=== PATIENT | female | born 1990 | race Caucasian/White ===

== ENCOUNTER 2016-05-04 13:32 | Emergency (ER) | payer BC ==
[2016-05-04] MEDS ORDERED: NORMAL SALINE 1000 ML 1,000 ML IV ONE (14:01)
[2016-05-04 14:04] LABS: ABSOLUTE EOSINOPHILS # (AUTO) 0.5 10^3/uL (0.0-0.6); ABSOLUTE LYMPHOCYTES (AUTO) 2.4 10^3/uL (0.5-4.7); ABSOLUTE MONOCYTES (AUTO) 0.8 10^3/uL (0.1-1.4); BASOPHILS % (AUTO) 0.2 % (0-2); EOSINOPHILS % (AUTO) 5.3 % (0-6); LYMPHOCYTES % (AUTO) 27.7 % (13-45); MEAN CORPUSCULAR HEMOGLOBIN 26.2 pg (27.0-33.4); MEAN CORPUSCULAR HGB CONC 32.3 g/dL (32.0-36.0); MEAN CORPUSCULAR VOLUME 81 fl (80-97); MONOCYTES % (AUTO) 9.2 % (3-13); RED BLOOD COUNT 4.19 10^6/uL (3.72-5.28); RED CELL DISTRIBUTION WIDTH 16.6 % (11.5-14.0); SEGMENTED NEUTROPHILS % (AUTO) 57.6 % (42-78); WHITE BLOOD COUNT 8.7 10^3/uL (4.0-10.5)
[2016-05-04 14:25] LABS: ALANINE AMINOTRANSFERASE 22 U/L (9-52); ALBUMIN 4.2 g/dL (3.5-5.0); ALCOHOL < 10 mg/dL (NONE DETECTED); ALKALINE PHOSPHATASE 88 U/L (38-126); ANION GAP 16 (5-19); ASPARTATE AMINO TRANSFERASE 17 U/L (14-36); BILIRUBIN,TOTAL 0.4 mg/dL (0.2-1.3); BLOOD UREA NITROGEN 11 mg/dL (7-20); CALCIUM 9.8 mg/dL (8.4-10.2); CARBON DIOXIDE 21 mmol/L (22-30); CHLORIDE 106 mmol/L (98-107); CREATININE RESULT 0.75 mg/dL (0.52-1.25); GLUCOSE 88 mg/dL (75-110); MAGNESIUM 1.8 mg/dL (1.6-2.3); POTASSIUM 3.8 mmol/L (3.6-5.0); SODIUM 142.9 mmol/L (137-145); TOTAL PROTEIN 6.6 g/dL (6.3-8.2)
[2016-05-04] MEDS ORDERED: ONDANSETRON HCL INJ/PF 4 MG/2 ML SDV IV ONE (14:29)
--- NOTE | 2016-05-04 15:26 | ER Document Report ---
ED General - General Chief Complaint: Seizure Stated Complaint: SEIZURE - HPI Patient complains to provider of: seizure Notes: Patient coming in today after parents seizure. Patient states last seizure was in March. Patient states she has been compliant with her medications. Patient denies any changes in the last 2 days denies fevers chills nausea vomiting patient states now that she is having head pain and neck pain. Patient was transported by EMS in a c-collar due to the neck pain. Patient states currently she is nauseous which is normal after she has a seizure. Patient is alert oriented. Actual events of seizure not known no witnesses at bedside - Related Data Allergies/Adverse Reactions: ciprofloxacin [From Cipro] Allergy (Verified 09/06/13 22:52) ciprofloxacin HCl [From Cipro] Allergy (Verified 09/06/13 22:52) morphine [Morphine] Allergy (Verified 09/06/13 22:52) Sulfa (Sulfonamide Antibiotics) Allergy (Verified 09/06/13 22:52) vancomycin [Vancomycin] Allergy (Verified 09/06/13 22:52) Past Medical History - Social History Smoking Status: Unknown if Ever Smoked Family History: Other Pulmonary Medical History: Reports: Hx Asthma, Hx Pneumonia Neurological Medical History: Reports: Hx Migraine, Hx Seizures Past Surgical History: Reports: Hx Orthopedic Surgery - bilaeral feet/knees, Hx Thyroid Surgery - Immunizations Hx Diphtheria, Pertussis, Tetanus Vaccination: Yes Review of Systems - Review of Systems Constitutional: No symptoms reported EENT: No symptoms reported Cardiovascular: No symptoms reported Respiratory: No symptoms reported Gastrointestinal: No symptoms reported Genitourinary: No symptoms reported Female Genitourinary: No symptoms reported Musculoskeletal: No symptoms reported Skin: No symptoms reported Hematologic/Lymphatic: No symptoms reported Neurological/Psychological: Seizure -: Yes All other systems reviewed and negative Physical Exam - Vital signs Vitals: Temp Pulse Resp BP Pulse Ox 98.3 F 95 18 124/72 99 05/04/16 13:37 05/04/16 13:37 05/04/16 13:37 05/04/16 13:37 05/04/16 13:37 Interpretation: Normal - General General appearance: Appears well, Alert - HEENT Head: Normocephalic, Atraumatic Eyes: Normal Pupils: PERRL Notes: Upon palpation the midline of the neck patient continues to have pain c-collar was reestablished and CT scan ordered - Respiratory Respiratory status: No respiratory distress Chest status: Nontender Breath sounds: Normal Chest palpation: Normal - Cardiovascular Rhythm: Regular Heart sounds: Normal auscultation Murmur: No - Abdominal Inspection: Normal Distension: No distension Bowel sounds: Normal Tenderness: Nontender Organomegaly: No organomegaly - Back Back: Normal, Nontender - Extremities General upper extremity: Normal inspection, Nontender, Normal color, Normal ROM , Normal temperature General lower extremity: Normal inspection, Nontender, Normal color, Normal ROM , Normal temperature, Normal weight bearing. No: Altagracia's sign - Neurological Neuro grossly intact: Yes Cognition: Normal Orientation: AAOx4 Mulino Coma Scale Eye Opening: Spontaneous Lyndon Coma Scale Verbal: Oriented Mul[place] Coma Scale Motor: Obeys Commands Mul[place] Coma Scale Total: 15 Speech: Normal Motor strength normal: LUE, RUE, LLE, RLE Sensory: Normal - Psychological Associated symptoms: Normal affect, Normal mood - Skin Skin Temperature: Warm Skin Moisture: Dry Skin Color: Normal Course - Re-evaluation Re-evalutation: 05/04/16 19:42 Breakthough seizure with known seizure disorder and previous neurology evaluation. Now returned to neuro baseline. Labs reviewed. No indication of new or acute process. Patient appears safe for discharge with observation and close outpatient F/U with PCP or neurology. Seizure warnings discussed with patient / family. - Vital Signs Vital signs: Temp Pulse Resp BP Pulse Ox 98.3 F 83 18 105/63 100 05/04/16 13:37 05/04/16 15:29 05/04/16 13:37 05/04/16 15:29 05/04/16 15:29 - Laboratory Result Diagrams: 05/04/16 13:50 05/04/16 13:50 Laboratory results interpreted by me: 05/04/16 05/04/16 05/04/16 13:50 13:50 15:05 Hgb 11.0 L Hct 34.0 L MCH 26.2 L RDW 16.6 H Carbon Dioxide 21 L Urine Protein 30 H Ur Leukocyte Esterase SMALL H Discharge - Discharge Clinical Impression: Seizure, Nausea, Myalgia Condition: Good Disposition: HOME, SELF-CARE Instructions: Seizure, Known Epileptic ([facility]), Myalagia (Muscle Pain) ([facility]) Additional Instructions: Your seen and evaluated today for seizure. Her CAT scan of your head and your neck showed no critical pathology. You may still experience some neck pain head pain and muscle aches as that you did have a seizure today I would recommend taking Tylenol Motrin for pain control you may place ice packs or warm packs only areas that hurt. Please follow-up with your neurologist Please follow-up with your primary care physician Prescriptions: Ondansetron [Zofran Odt 4 mg Tablet] 4 mg PO Q4HP PRN #30 tab.rapdis PRN Reason: Referrals: LEXIS ANTUNEZ [Primary Care Provider] - Follow up as needed ABBY HORTA MD [ACTIVE STAFF] - Follow up as needed
[2016-05-04 16:54] LABS: AMORPHOUS SEDIMENT,URINE TRACE /HPF; APPEARANCE,URINE TURBID; BILIRUBIN,URINE NEGATIVE (NEGATIVE); GLUCOSE, URINE NEGATIVE (NEGATIVE); KETONES,URINE NEGATIVE (NEGATIVE); LEUKOCYTE ESTERASE,URINE SMALL (NEGATIVE); NITRITE,URINE NEGATIVE (NEGATIVE); PROTEIN,URINE 30 mg/dL (NEGATIVE); URINE SPECIFIC GRAVITY 1.024; UROBILINOGEN,URINE NEGATIVE mg/dL (<2.0)
[2016-05-04 17:09] LABS: URINE BARBITURATES SCREEN NEGATIVE; URINE METHADONE SCREEN NEGATIVE; URINE OPIATES LOW NEGATIVE; URINE PHENCYCLIDINE SCREEN NEGATIVE
[2016-05-04 19:30] VITALS: BP 105/63
== END 2016-05-04 15:29 | disposition home or self-care (01) ==
LOC: ER 13:32
DX: G40.909 Epilepsy, unspecified, not intractable, without status epilepticus (principal); M79.1 Myalgia; M54.2 Cervicalgia; R51 Headache; R11.0 Nausea; J45.909 Unspecified asthma, uncomplicated; Z79.899 Other long term (current) drug therapy; Z88.1 Allergy status to other antibiotic agents; Z88.5 Allergy status to narcotic agent; Z88.2 Allergy status to sulfonamides
CPT/HCPCS: 99284; 96374; 36415; 80307 ×2; 83735; 84703; 85025; 80053; 81001; 70450; 72125; J2405; J7030

== ENCOUNTER 2016-08-19 15:07 | Emergency (ER) | payer BC ==
--- NOTE | 2016-08-19 15:51 | ER Document Report ---
HPI - HPI Patient complains to provider of: right foot pain Onset: This morning Onset/Duration: Sudden Quality of pain: Achy Pain Level: 2 Context: Presents to the emergency department with complaints of right foot pain and burning. Patient reports symptoms started at 02 100 this morning. She reports increasing pain all day long. She took 3 Vicodin without relief of pain. She reports surgery on July 21. 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 Foot is in a cast. Denies trauma or recent injury. She contacted her foot surgeon several times. First he called in a prescription for Doxy but she was unable to pick pulling machine operator the doctor because her mother would not take her. Next he instructed her to come to the emergency department since she couldn't pick pulling machine operator the prescription. Associated Symptoms: None Exacerbated by: Denies Relieved by: Denies Similar symptoms previously: No Recently seen / treated by doctor: No - REPRODUCTIVE Reproductive: DENIES: : - DERM Skin Color: Normal Past Medical History - General Information source: Patient Last Menstrual Period: 08/19/16 - Social History Smoking Status: Unknown if Ever Smoked Cigarette use (# per day): No Frequency of alcohol use: Rare Drug Abuse: None Lives with: Family Family History: Other Patient has suicidal ideation: No Patient has homicidal ideation: No Pulmonary Medical History: Reports: Hx Asthma, Hx Pneumonia Neurological Medical History: Reports: Hx Migraine, Hx Seizures Renal/ Medical History: Denies: Hx Peritoneal Dialysis Past Surgical History: Reports: Hx Orthopedic Surgery - bilaeral feet/knees x5, spine surgery, Hx Thyroid Surgery, Other - brain surgery- shunt, sinus, eye, ear surgery - Immunizations Hx Diphtheria, Pertussis, Tetanus Vaccination: Yes Vertical Provider Document - CONSTITUTIONAL Agree With Documented VS: Yes Exam Limitations: No Limitations General Appearance: WD/WN, No Apparent Distress - nontoxic looking - INFECTION CONTROL TRAVEL OUTSIDE OF THE [place] IN LAST 30 DAYS: No - HEENT HEENT: Atraumatic, Normocephalic - NECK Neck: Supple - RESPIRATORY Respiratory: No Respiratory Distress O2 Sat by Pulse Oximetry: 97 - CARDIOVASCULAR Cardiovascular: Tachycardia - MUSCULOSKELETAL/EXTREMETIES Musculoskeletal/Extremeties: Tender - right foot in cast, wiggles toes post cast removal, no s/s infection, no swelling/warmth/discharge, brisk cap refill, wiggles toes without problems. - NEURO Level of Consciousness: Awake, Alert, Appropriate Motor/Sensory: No Motor Deficit - DERM Integumentary: Warm, Dry Course - Re-evaluation Re-evalutation: 08/19/16 15:[address] Camilo at [facility]. He agrees with plan to remove the cast prescribe doxycycline and pain medication and follow-up with Dr Jenkins on Sunday. 08/19/[address] Jenkins. I talked to him after her cast was removed. No signs of infection no erythema swelling warmth or discharge. Brisk cap refill. He was instructed of my findings. He agrees with my plan of care for patient to take the doxy that has already been called in for her plus add pain medication and antinausea. Patient is instructed to follow-up with him on Sunday. She verbalized understanding to all instructions. - Vital Signs Vital signs: Temp Pulse Resp BP Pulse Ox 98.0 F 122 H 22 H 111/65 97 08/19/16 15:14 08/19/16 15:14 08/19/16 15:14 08/19/16 15:14 08/19/16 15:14 Procedures - Immobilization Right Foot Immobilizer type: Posterior ankle Performed by: Michael - vanesa HOOVER Post-Proc Neuro Vasc Exam: Unchanged from pre-exam Alignment checked and good: Yes Discharge - Discharge Clinical Impression: Right foot pain Condition: Stable Disposition: HOME, SELF-CARE Instructions: Doxycycline ([facility]), Oral Narcotic Medication ([facility]), Splint Pending Casting ([facility]), Antinausea Medication ([facility]) Additional Instructions: *You have been evaluated for right foot pain *Maintain the splint *Rest/ elevate your foot *Follow up with Dr Jenkins Sunday *Take medication as prescribed *Return to ED for worsening condition, changes, needs Prescriptions: Hydrocodone/Acetaminophen [[place] 5-325 Tablet] 1 each PO QID #15 tablet Ondansetron [Zofran Odt 4 mg Tablet] 1 - 2 tab PO Q4H #10 tab.tamikadis
[2016-08-19] MEDS ORDERED: OXYCODONE-ACETAMINOPHEN 5-325 MG TABLET PO ONE (15:53)
[2016-08-19] MEDS ORDERED: ONDANSETRON 4 MG TAB.RAPDIS PO ONE (16:00)
[2016-08-19] MEDS ORDERED: DOXYCYCLINE HYCLATE 100 MG TABLET PO ONE (16:15)
[2016-08-19 16:58] VITALS: BP 108/65
== END 2016-08-19 16:54 | disposition home or self-care (01) ==
LOC: ER 15:07
PROC: 2W3QX1Z Immobilization of Right Lower Leg using Splint (ICD-10-PCS; principal; 2016-08-19)
DX: M79.671 Pain in right foot (principal); J45.909 Unspecified asthma, uncomplicated; Z98.890 Other specified postprocedural states; Z86.14 Personal history of Methicillin resistant Staphylococcus aureus infection
CPT/HCPCS: 99283; 29515; S0119

== ENCOUNTER 2017-06-28 01:36 | Emergency (ER) | payer BC ==
--- NOTE | 2017-06-28 02:40 | ER Document Report ---
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 She states she slipped on the bathroom mat, fell forward, hit her head on the door in the bathroom. She states that she was not knocked out but she felt nauseated and vomited. She states that she took 4 mg of Zofran, 10 minutes later she vomited again. After that she came to emergency department by EMS to be evaluated. She is not on any blood thinners. She denies any focal numbness or weakness, she does report a headache, she denies neck pain, she denies any other injuries. TRAVEL OUTSIDE OF THE [place] IN LAST 30 DAYS: No - Related data Allergies/Adverse Reactions: ciprofloxacin [From Cipro] Allergy (Verified 08/19/16 15:15) ciprofloxacin HCl [From Cipro] Allergy (Verified 08/19/16 15:15) morphine [Morphine] Allergy (Verified 08/19/16 15:15) Sulfa (Sulfonamide Antibiotics) Allergy (Verified 08/19/16 15:15) vancomycin [Vancomycin] Allergy (Verified 08/19/16 15:15) Past Medical History - General Information source: Patient - Social History Smoking Status: Never Smoker Frequency of alcohol use: None Drug Abuse: None Lives with: Family Family History: Other Pulmonary Medical History: Reports: Hx Asthma, Hx Pneumonia Neurological Medical History: Reports: Hx Migraine, Hx Seizures Renal/ Medical History: Denies: Hx Peritoneal Dialysis Past Surgical History: Reports: Hx Neurologic Surgery - Brain surgery with ROOFING CONTRACTOR shunt, Hx Orthopedic Surgery - bilaeral feet/knees x5, spine surgery, Hx Thyroid Surgery, Hx Tonsillectomy, Other - brain surgery- shunt, sinus, eye, ear surgery - Immunizations Hx Diphtheria, Pertussis, Tetanus Vaccination: Yes Review of Systems - Review of Systems Constitutional: No symptoms reported EENT: No symptoms reported Cardiovascular: No symptoms reported Respiratory: No symptoms reported Gastrointestinal: See HPI Genitourinary: No symptoms reported Female Genitourinary: No symptoms reported Musculoskeletal: No symptoms reported Skin: No symptoms reported Hematologic/Lymphatic: No symptoms reported Neurological/Psychological: See HPI Physical Exam - Vital signs Vitals: Temp Pulse Resp BP Pulse Ox 98.5 F 96 16 129/73 H 100 06/28/17 01:41 06/28/17 01:41 06/28/17 01:41 06/28/17 01:41 06/28/17 01:41 Interpretation: Normal - General General appearance: Appears well In distress: None - HEENT Head: Normocephalic. No: Atraumatic - Questionable tiny contusion over the mid forehead Eyes: Normal Conjunctiva: Normal Extraocular movements intact: Yes Eyelashes: Normal Pupils: PERRL Ears: Normal Sinus: Normal Nasal: Normal Mouth/Lips: Normal Mucous membranes: Normal Pharynx: Normal Neck: Normal - Respiratory Respiratory status: No respiratory distress Chest status: Nontender Breath sounds: Normal Chest palpation: Normal - Cardiovascular Rhythm: Regular Heart sounds: Normal auscultation Murmur: No - Abdominal Inspection: Normal Distension: No distension Bowel sounds: Normal Tenderness: Nontender Organomegaly: No organomegaly - Back Back: Normal, Nontender - Extremities General upper extremity: Normal inspection, Nontender, Normal color, Normal ROM , Normal temperature General lower extremity: Normal inspection, Nontender, Normal color, Normal ROM , Normal temperature, Normal weight bearing. No: Altagracia's sign - Neurological Neuro grossly intact: Yes Cognition: Normal Orientation: AAOx4 Lyndon Coma Scale Eye Opening: Spontaneous [place] Coma Scale Verbal: Oriented Lyndon Coma Scale Motor: Obeys Commands Lyndon Coma Scale Total: 15 Speech: Normal Cranial nerves: Normal Cerebellar coordination: Normal Motor strength normal: LUE, RUE, LLE, RLE Additional motor exam normals: Equal brancher. No: Pronator drift Sensory: Normal - Psychological Associated symptoms: Normal affect, Normal mood - Skin Skin Temperature: Warm Skin Moisture: Dry Skin Color: Normal Course - Re-evaluation Re-evalutation: I do not see any signs of trauma over patient's head other than possibly a tiny area of contusion in the mid forehead. She has a normal neurological exam, she is alert, smiling, talkative, well-appearing. No neurological deficits. CT of the head was performed because of her reported injury and vomiting along with her shunt history, shows no hemorrhage or concerning findings. On repeat examination neurological exam remains normal, patient happily playing on her phone. Patient is asking for something for headache, I did agree to give her this. On reevaluation patient with no headache. Discussed head injury precautions, postconcussive symptoms, return precautions. Patient states she will be with her mother later today. Patient states understanding and agreement with plan. - Vital Signs Vital signs: Temp Pulse Resp BP Pulse Ox 98.9 F 93 16 110/63 100 06/28/17 04:32 06/28/17 04:32 06/28/17 04:32 06/28/17 04:32 06/28/17 04:32 Discharge - Discharge Clinical Impression: Head injury Qualifiers: Encounter type: initial encounter Qualified Code(s): S09.90XA - Unspecified injury of head, initial encounter Vomiting Qualifiers: Vomiting type: unspecified Vomiting Intractability: non-intractable Nausea presence: with nausea Qualified Code(s): R11.2 - Nausea with vomiting, unspecified Condition: Stable Disposition: HOME, SELF-CARE Additional Instructions: Your neurological examination and the CAT scan do not indicate any concerning abnormalities. This is most likely a concussion, you will likely have postconcussive headaches. Please follow head injury precautions. See additional details below. Follow-up with primary care. Return for any concerning symptoms Head Injury Precautions At this point, there is no evidence that your head injury is serious. Observation is necessary, however. Limit activity for the first 24 hours. Bed rest is best. During the first 24 hours, check to see approximately every two to three hours that the patient is easily arousable, responds normally, and can perform common tasks such as walking without difficulty. Contact your doctor or go to the hospital if any of the following things occur: Persistent vomiting, difficulty in arousing the patient, worsening or continued headache, or failure to improve as expected. Head injuries can cause symptoms that persist for a few days or even a few weeks. Post-Concussion Syndrome Post-concussion syndrome often follows a mild head injury. Dizziness, mild nausea, mild headache, trouble concentrating, and a general sense of "not being right" may persist for a week or two. This is a frequent complication of concussion. However, if the symptoms worsen, or new symptoms develop, you should be re-examined by the physician. There is no specific cure for post-concussion syndrome. You can take mild pain medication such as ibuprofen or acetaminophen. While you should not drive if you are dizzy, you can get back to your regular activities as quickly as the symptoms will allow. And while vigorous exercise may worsen the headache, mild physical activity often is helpful. Sitting and thinking about your symptoms will worsen them. If difficulties continue, you may need referral for special therapy to help you regain full mental function. Call the physician if you are worsening, or if symptoms are still present in one week. Report any new symptoms immediately. Referrals: JOAN PRITCHARD PA [Primary Care Provider] - Follow up as needed
--- NOTE | 2017-06-28 03:17 | RADIOLOGY REPORT (SQ) ---
EXAM DESCRIPTION: CT HEAD WITHOUT CLINICAL HISTORY: 26 years Female, head injury, vomiting, has shunt COMPARISON: None. TECHNIQUE: No contrast. Coronal and sagittal reformat. This exam was performed according to our departmental dose-optimization program, which includes automated exposure control, adjustment of the mA and/or kV according to patient size and/or use of iterative reconstruction technique. FINDINGS: No hemorrhage or infarct. No mass, mass effect, or midline shift. EXTERMINATOR shunt catheter tip at the third ventricle from a right frontal approach, ventricles within normal limits, right smaller than left.Brain and extra-axial structures appear otherwise intact. IMPRESSION: No acute findings. EXTERMINATOR shunt.
[2017-06-28] MEDS ORDERED: MORPHINE SULFATE 10 MG/ML INJ IV ONE (03:31)
[2017-06-28] MEDS ORDERED: DIPHENHYDRAMINE HCL 50 MG/ML VIAL IV ONE (03:35)
[2017-06-28] MEDS ORDERED: KETOROLAC TROMETHAMINE INJ/PF 30 MG/1 ML SDV IV ONE (03:36)
[2017-06-28] MEDS ORDERED: ONDANSETRON ODT 4 MG TAB (6 TAB/ER DISP) PO PRN (04:24)
[2017-06-28 04:38] VITALS: BP 110/63
== END 2017-06-28 04:40 | disposition home or self-care (01) ==
LOC: ER 01:36
DX: S09.90XA Unspecified injury of head, initial encounter (principal); W01.198A Fall on same level from slipping, tripping and stumbling with subsequent striking against other object, initial encounter; R11.2 Nausea with vomiting, unspecified; R51 Headache; G91.9 Hydrocephalus, unspecified; Z98.2 Presence of cerebrospinal fluid drainage device; Z88.1 Allergy status to other antibiotic agents; Z88.5 Allergy status to narcotic agent; Z88.2 Allergy status to sulfonamides
CPT/HCPCS: 99284; 96374; 96375; 70450; J1200; J1885; J2270

== ENCOUNTER 2018-02-22 21:13 | Emergency (ER) | payer SELFPAY ==
[2018-02-22] MEDS ORDERED: TRAMADOL HCL 50 MG TABLET PO ONE (22:23)
[2018-02-22] MEDS ORDERED: KETOROLAC TROMETHAMINE 60 MG/2 ML SDV IM ONE (22:23)
[2018-02-22] MEDS ORDERED: LIDOCAINE 5% (700 MG) TRANSDERMAL ADH..PATCH TP ONE (22:23)
[2018-02-22] MEDS ORDERED: ACETAMINOPHEN 325 MG TABLET PO ONE (22:24)
--- NOTE | 2018-02-22 22:30 | ER Document Report ---
ED General - General Chief Complaint: Back Pain Stated Complaint: BACK PAIN Time Seen by Provider: 02/22/18 22:09 Notes: Patient is a 27-year-old female with a past medical history of scoliosis status post graham placement in the back, morbid obesity, who presents with acute onset of left upper back pain radiating through the entirety of her spine. She states this started after she was sitting in a minor, bent over in the recliner to try to reach her phone to have fallen to the ground. She states that she felt or heard a pop between her scapula and spine and since that time has had a severe, stabbing, constant pain to the area. She has not tried taking to improve the pain. Movement of the area worsens the pain. She denies any direct trauma to the area. No history of similar symptoms in the past. She has not seen her primary doctor regarding today's concerns. She denies any bowel or bladder incontinence, urinary retention, weakness, numbness, difficulty breathing, or swelling to the affected area. TRAVEL OUTSIDE OF THE [place] IN LAST 30 DAYS: No - Related Data Allergies/Adverse Reactions: ciprofloxacin [From Cipro] Allergy (Verified 08/19/16 15:15) ciprofloxacin HCl [From Cipro] Allergy (Verified 08/19/16 15:15) morphine [Morphine] Allergy (Verified 08/19/16 15:15) Sulfa (Sulfonamide Antibiotics) Allergy (Verified 08/19/16 15:15) vancomycin [Vancomycin] Allergy (Verified 08/19/16 15:15) Past Medical History - General Information source: Patient - Social History Smoking Status: Never Smoker Frequency of alcohol use: None Drug Abuse: None Lives with: Family Family History: Reviewed & Not Pertinent, Other Pulmonary Medical History: Reports: Hx Asthma, Hx Pneumonia Neurological Medical History: Reports: Hx Migraine, Hx Seizures Renal/ Medical History: Denies: Hx Peritoneal Dialysis Past Surgical History: Reports: Hx Neurologic Surgery - Brain surgery with FISHING GUIDE shunt, Hx Orthopedic Surgery - bilaeral feet/knees x5, spine surgery, Hx Thyroid Surgery, Hx Tonsillectomy, Other - brain surgery- shunt, sinus, eye, ear surgery - Immunizations Hx Diphtheria, Pertussis, Tetanus Vaccination: Yes Review of Systems - Review of Systems Notes: Constitutional: Negative for fever. HENT: Negative for sore throat. Eyes: Negative for visual changes. Cardiovascular: Negative for chest pain. Respiratory: Negative for shortness of breath. Gastrointestinal: Negative for abdominal pain, vomiting or diarrhea. Genitourinary: Negative for dysuria. Musculoskeletal: Positive for upper right back pain Skin: Negative for rash. Neurological: Negative for headaches, weakness or numbness. 10 point ROS negative except as marked above and in HPI. Physical Exam - Vital signs Vitals: Temp Pulse Resp BP Pulse Ox 98.2 F 95 18 102/62 100 02/22/18 21:19 02/22/18 21:19 02/22/18 21:19 02/22/18 21:19 02/22/18 21:19 Interpretation: Normal Notes: PHYSICAL EXAMINATION: GENERAL: Well-appearing, well-nourished and in no acute distress. HEAD: Atraumatic, normocephalic. EYES: Pupils equal round and reactive to light, extraocular movements intact, sclera anicteric, conjunctiva are normal. ENT: nares patent, oropharynx clear without exudates. Moist mucous membranes. NECK: Normal range of motion, supple without lymphadenopathy LUNGS: Breath sounds clear to auscultation bilaterally and equal. No wheezes rales or rhonchi. HEART: Regular rate and rhythm without murmurs ABDOMEN: Soft, nontender, normoactive bowel sounds. No guarding, no rebound. No masses appreciated. EXTREMITIES: Normal range of motion, no pitting or edema. No cyanosis. Back: No midline spinal tenderness, step-offs or deformities. NEUROLOGICAL: Normal speech, normal gait. 5 out of 5 strength in both the distal and proximal upper and lower extremities bilaterally. 2+ patellar and ankle reflexes bilaterally. Sensation is grossly intact throughout. PSYCH: Moderately anxious SKIN: Warm, Dry, normal turgor, no rashes or lesions noted. 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 She presents with local pain to the area as well as pain shooting down the entirety of her spine. She denies any midline spinal tenderness. No systemic symptoms including fevers, chills, weight loss, history of recent bacterial infection, bilateral symptoms, numbness, weakness, difficulty walking, urinary retention or bowel incontinence, personal history of cancer, immunosuppression, diabetes, known AAA, or history of IV drug use. Exam is without point tenderness over vertebral bodies, pulsatile abdominal mass , and patient has symmetric and intact lower extremity strength, sensation, and reflexes without clonus. 2+ symmetric medial malleolar and dorsalis pedis pulses Based on history and physical, I have a very low suspicion of a concerning etiology of pain including epidural compression syndrome, spinal infection, transverse myelitis, malignancy, abdominal aortic aneurysm, renal colic, acute lower extremity claudication, neurogenic claudication, ankylosing spondylitis, or other intra-abdominal process. Due to absence of concerning risk factors in history and physical as well as absence of rapidly progressive, severe, or bilateral symptoms, will defer imaging at this point. At this time will discharge with return precautions and follow-up recommendations. Verbal discharge instructions given a the bedside and opportunity for questions given. Medication warnings reviewed. Patient is in agreement with this plan and has verbalized understanding of return precautions and the need for primary care follow-up in the next 24-72 hours. - Vital Signs Vital signs: Temp Pulse Resp BP Pulse Ox 98.4 F 74 18 107/50 L 100 02/22/18 23:45 02/22/18 23:45 02/22/18 23:45 02/22/18 23:45 02/22/18 23:45 Discharge - Discharge Clinical Impression: Mid back pain Left shoulder pain Qualifiers: Chronicity: acute Qualified Code(s): M25.512 - Pain in left shoulder Condition: Good Disposition: HOME, SELF-CARE Additional Instructions: You have been seen in the Emergency Department (ED) today for back pain. Your workup and exam have not shown any acute abnormalities and you are likely suffering from muscle strain or possible problems with your discs, but there is no treatment that will fix your symptoms at this time. For your pain: Take ibuprofen 600 mg and acetaminophen 1000 mg every 6 hours together as needed for pain. Use the tramadol for pain not controlled by the above measures. You should also purchase a local lidocaine cream such as "aspercreme with lidocaine " and use per bottle instructions to the affected area. Apply heat to the area as often as you are able. Continue to keep active and avoid prolonged periods of bed rest. Please follow up with your doctor as soon as possible regarding today's ED visit and your back pain. Return to the ED for worsening back pain, fever, weakness or numbness of either leg, or if you develop either (1) an inability to urinate or have bowel movements, or (2) loss of your ability to control your bathroom functions (if you start having "accidents"), or if you develop other new symptoms that concern you.concern you. Prescriptions: Tramadol HCl [Ultram] 50 mg PO Q8HP PRN #6 tablet PRN Reason: Referrals: JOAN PRITCHARD PA [Primary Care Provider] - Follow up as needed
[2018-02-22 23:46] VITALS: BP 107/50
== END 2018-02-22 23:45 | disposition home or self-care (01) ==
LOC: ER 21:13
DX: M54.9 Dorsalgia, unspecified (principal); M25.512 Pain in left shoulder; M54.6 Pain in thoracic spine; M41.9 Scoliosis, unspecified; E66.01 Morbid (severe) obesity due to excess calories; X50.0XXA Overexertion from strenuous movement or load, initial encounter; J45.909 Unspecified asthma, uncomplicated
CPT/HCPCS: 99283; 96372; J1885

== ENCOUNTER 2018-09-22 18:26 | Emergency (ER) | payer BC ==
[2018-09-22] MEDS ORDERED: MORPHINE SULFATE 10 MG/ML INJ IM ONE (19:50)
[2018-09-22] MEDS ORDERED: ONDANSETRON 4 MG TAB.RAPDIS PO ONE (19:51)
--- NOTE | 2018-09-22 20:08 | ER Document Report ---
ED General - General Chief Complaint: Fall Stated Complaint: FALL Time Seen by Provider: 09/22/18 18:49 Primary Care Provider: JOAN PRITCHARD PA [Primary Care Provider] - Follow up as needed Notes: Patient is a 28-year-old female with a past medical history of epilepsy who is in radiology today getting an x-ray of her foot. Patient states that a flickering right and radiology triggered a seizure, this is a known trigger for her. She fell from a standing position and apparently struck her head when she fell. Patient was initially postictal and states that her postictal phase is generally last several minutes and this again occurred today. She was transferred over to the emergency department for further evaluation. Patient notes a dull, throbbing, constant discomfort to the left side of her head. Mild to moderate in intensity. Nothing seems to improve or worsen his pain. Denies any additional trauma or pain to other location. Denies any focal weakness, numbness, confusion, vomiting, changes in vision, or any additional symptoms since head trauma. Does not take any form of anticoagulation. TRAVEL OUTSIDE OF THE [place] IN LAST 30 DAYS: No - Related Data Allergies/Adverse Reactions: ciprofloxacin [From Cipro] Allergy (Verified 08/19/16 15:15) ciprofloxacin HCl [From Cipro] Allergy (Verified 08/19/16 15:15) morphine [Morphine] Allergy (Verified 08/19/16 15:15) Sulfa (Sulfonamide Antibiotics) Allergy (Verified 08/19/16 15:15) vancomycin [Vancomycin] Allergy (Verified 08/19/16 15:15) Past Medical History - General Information source: Patient - Social History Smoking Status: Never Smoker Frequency of alcohol use: None Drug Abuse: None Lives with: Family Family History: Reviewed & Not Pertinent, Other Patient has suicidal ideation: No Patient has homicidal ideation: No Pulmonary Medical History: Reports: Hx Asthma, Hx Pneumonia Neurological Medical History: Reports: Hx Migraine, Hx Seizures Renal/ Medical History: Denies: Hx Peritoneal Dialysis Past Surgical History: Reports: Hx Neurologic Surgery - Brain surgery with INSPECTOR PENETRANT shunt, Hx Orthopedic Surgery - bilaeral feet/knees x5, spine surgery, Hx Thyroid Surgery, Hx Tonsillectomy, Other - brain surgery- shunt, sinus, eye, ear surgery - Immunizations Hx Diphtheria, Pertussis, Tetanus Vaccination: Yes Review of Systems - Review of Systems Notes: Constitutional: Negative for fever. Eyes: Negative for visual changes. ENT: Negative for facial injury Cardiovascular: Negative for chest injury. Respiratory: Negative for shortness of breath. Gastrointestinal: Negative for abdominal injury. Genitourinary: Negative for genital injury Musculoskeletal: Negative for back injury. Skin: Negative for laceration/abrasions. Neurological: Positive for head injury. Physical Exam - Vital signs Vitals: Temp Resp Pulse Ox 99 F 18 100 09/22/18 18:29 09/22/18 18:29 09/22/18 18:29 Interpretation: Normal Notes: PHYSICAL EXAMINATION: GENERAL: Well-appearing, no acute distress. HEAD: Atraumatic, normocephalic. EYES: Pupils equal round and reactive to light, extraocular movements intact, sclera anicteric, conjunctiva are normal. ENT: nares patent, no oral pharyngeal trauma. No hemotympanum, no Pryor's sign, no raccoon eyes. NECK: No midline cervical spine tenderness. Patient able to move their head to 45 bilaterally without any discomfort. LUNGS: Breath sounds clear to auscultation bilaterally and equal. No wheezes rales or rhonchi. HEART: Regular rate and rhythm without murmurs. CHEST WALL: No ecchymosis over the chest wall. ABDOMEN: Soft, nontender, normoactive bowel sounds. No guarding, no rebound. No abdominal bruising EXTREMITIES: Normal range of motion, no pitting or edema. No long bone deformities. BACK: No midline spinal tenderness, step-offs, or deformities. NEUROLOGICAL: Face symmetric. Tongue protrudes midline. Extraocular motions intact. Pupils are 2 mm and equally reactive. Normal speech, normal gait. 5 out of 5 strength in both the distal and proximal upper and lower extremities bilaterally. Sensation is grossly intact throughout. Finger to nose testing normal. Pronator drift normal. PSYCH: Normal mood, normal affect. SKIN: Warm, Dry, normal turgor, no rashes or lesions noted. Course - Re-evaluation Re-evalutation: 09/22/18 20:06 Presentation of head trauma in an otherwise well-appearing patient. Head trauma was sustained after the patient had a seizure from a standing position and fell and struck her head over in radiology. No focal neurologic deficits on exam, no evidence of basilar skull fracture on exam without evidence of hemotympanum, raccoon eyes, or periauricular hematoma. No papilledema. Patient is not on an ticoagulation. GCS is 15. No loss of consciousness. No episodes of vomiting. Patient is therefore negative via [place] head CT criteria and CT imaging will not be obtained at this time. Patient evaluated by NEXUS criteria and found to be negative. Patient is also negative by cymro C-spine criteria. No clinical evidence to suggest increased risk of cervical spine fracture. No indication f or further imaging of the cervical spine this point. Has no additional areas of pain or trauma. Physical examination otherwise globally unremarkable. Patient in agreement with avoiding CT imaging today. At this time will discharge with return precautions and follow-up recommendations. Verbal discharge instructions given a the bedside and opportunity for questions given. Medication warnings re viewed. Patient is in agreement with this plan and has verbalized understanding of return precautions and the need for primary care follow-up in the next 24-72 hours. - Vital Signs Vital signs: Temp Pulse Resp BP Pulse Ox 98.9 F 23 H 130/74 H 99 09/22/18 20:15 09/22/18 20:42 09/22/18 20:42 09/22/18 20:42 Discharge - Discharge Clinical Impression: Epilepsy Qualifiers: Epilepsy type: unspecified Intractability: not intractable Status epilepticus: without status epilepticus Qualified Code(s): G40.909 - Epilepsy, unspecified, not intractable, without status epilepticus Head trauma Qualifiers: Encounter type: initial encounter Qualified Code(s): S09.90XA - Unspecified injury of head, initial encounter Condition: Good Disposition: HOME, SELF-CARE Additional Instructions: You have likely sustained a contusion (bruise) to your head. Symptoms to expect from a concussion include nausea, mild to moderate headache, difficulty concentrating or sleeping, and mild lightheadedness. These symptoms should impr ove over the next few days to weeks. Return to the emergency department or follow-up with your primary care doctor if your symptoms are not improving over this time. Signs of a more serious head injury include vomiting, severe headache, excessive sleepiness or confusion, and weakness or numbness in your face, arms or legs. Return immediately to the Emergency Department if you experience any of these more concerning symptoms. Rest, avoid strenuous physical or mental activity, and avoid activities that could potentially result in another head injury until all your symptoms from this head injury are completely resolved for at least 2-3 weeks. If you participate in sports, get cleared by your doctor or technology trainer before returning to play. You may take ibuprofen or acetaminophen over the counter according to label instructions for mild headache or scalp soreness. Referrals: JOAN PRITCHARD PA [Primary Care Provider] - Follow up as needed
[2018-09-22 20:45] VITALS: BP 130/74
== END 2018-09-22 20:47 | disposition home or self-care (01) ==
LOC: ER 18:26
DX: G40.909 Epilepsy, unspecified, not intractable, without status epilepticus (principal); S09.90XA Unspecified injury of head, initial encounter; W19.XXXA Unspecified fall, initial encounter; Z88.2 Allergy status to sulfonamides; Z88.3 Allergy status to other anti-infective agents; Z88.6 Allergy status to analgesic agent
CPT/HCPCS: 99284; 96372; A6266; S0119; J2270

== ENCOUNTER → 2018-09-22 | Outpatient (CLI) | payer BC ==
--- NOTE | 2018-09-22 19:14 | RADIOLOGY REPORT (SQ) ---
EXAM DESCRIPTION: ANKLE RIGHT COMPLETE COMPLETED DATE/TIME: 09/22/2018 6:25 pm REASON FOR STUDY: (S99.911A)INJURY OF RIGHT ANKLE,INITIAL ENCOUNTER COMPARISON: None. NUMBER OF VIEWS: Three views. TECHNIQUE: AP, lateral, and oblique radiographic images acquired of the right ankle. LIMITATIONS: None. FINDINGS: MINERALIZATION: Normal. BONES: Previous amputation of the distal end of the right 1st metatarsal and right 1st toe JOINTS: No effusions. SOFT TISSUES: No soft tissue swelling. No foreign body. OTHER: No other significant finding. 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 Otherwise, norm al right ankle. TECHNICAL DOCUMENTATION: JOB ID: [id number] 2010 [employer]- All Rights Reserved Reading location - IP/workstation name: [email or web address]
== END ==
LOC: RAD 17:24
PROVIDERS: ATTEND Nurse Practitioner Family
DX: S99.911A Unspecified injury of right ankle, initial encounter (principal); X58.XXXA Exposure to other specified factors, initial encounter
CPT/HCPCS: 82962

== ENCOUNTER 2018-10-21 13:32 | Observation (INO) | payer BC ==
[2018-10-21 14:42] LABS: ALANINE AMINOTRANSFERASE 20 U/L (9-52); ALBUMIN 4.1 g/dL (3.5-5.0); ALKALINE PHOSPHATASE 65 U/L (38-126); ANION GAP 10 (5-19); ASPARTATE AMINO TRANSFERASE 19 U/L (14-36); BILIRUBIN,DIRECT 0.2 mg/dL (0.0-0.4); BILIRUBIN,TOTAL 0.2 mg/dL (0.2-1.3); BLOOD UREA NITROGEN 14 mg/dL (7-20); CARBON DIOXIDE 22 mmol/L (22-30); CHLORIDE 108 mmol/L (98-107); GLUCOSE 88 mg/dL (75-110); POTASSIUM 4.2 mmol/L (3.6-5.0); TOTAL PROTEIN 6.9 g/dL (6.3-8.2)
[2018-10-21 14:44] LABS: ALCOHOL < 10 mg/dL (NONE DETECTED)
--- NOTE | 2018-10-21 15:46 | RADIOLOGY REPORT (SQ) ---
EXAM DESCRIPTION: CT HEAD WITHOUT COMPLETED DATE/TIME: 10/21/2018 3:23 pm REASON FOR STUDY: headache COMPARISON: 06/28/2017 TECHNIQUE: Axial images acquired through the brain without intravenous contrast. Images reviewed wi th bone, brain and subdural windows. Additional sagittal and coronal reconstructions were generated. Images stored on PACS. All CT scanners at this facility use dose modulation, iterative reconstruction, and/or weight based d osing when appropriate to reduce radiation dose to as low as reasonably achievable (ALARA). [facility]: Dose Right [facility]: CareDose [facility]: Dose Right [facility]: Teradose 4D [facility]: Smart Babytree RADIATION DOSE: CT Rad equipment meets quality standard of care and radiation dose reduction techniq ues were employed. CTDIvol: 53.2 mGy. DLP: 1177 mGy-cm. mGy. LIMITATIONS: None. FINDINGS: VENTRICLES: Normal size and contour. CEREBRUM: No masses. No hemorrhage. No midline shift. No evidence for acute infarction. Normal gra y/white matter differentiation. No areas of low density in the white matter. CEREBELLUM: No masses. No hemorrhage. No alteration of density. No evidence for acute infarction. EXTRAAXIAL SPACES: No fluid collections. No masses. ORBITS AND GLOBE: No intra- or extraconal masses. Normal contour of globe without masses. CALVARIUM: No fracture. PARANASAL SINUSES: No fluid or mucosal thickening. SOFT TISSUES: No mass or hematoma. OTHER: A ventriculoperitoneal shunt is present. IMPRESSION: No acute intracranial imaging findings. A ventriculoperitoneal shunt appears to be func tioning. There is no ventricular dilatation. EVIDENCE OF ACUTE STROKE: NO. COMMENT: Quality ID # [id number]: Final reports with documentation of one or more dose reduction techniques (e.g., Automated exposure control, adjustment of the mA and/or kV according to patient size, use of iterative reconstruction technique) TECHNICAL DOCUMENTATION: JOB ID: [id number] [employer]- All Rights Reserved Reading location - IP/workstation name: [email or web address]
[2018-10-21] MEDS ORDERED: MORPHINE SULFATE 10 MG/ML INJ IV ONE (15:49)
[2018-10-21] MEDS ORDERED: ONDANSETRON HCL INJ/PF 4 MG/2 ML SDV IV ONE (15:50)
--- NOTE | 2018-10-21 15:53 | ER Document Report ---
ED General - General Chief Complaint: Probable Seizure Stated Complaint: SEIZURE Time Seen by Provider: 10/21/18 15:08 Primary Care Provider: JOAN PRITCHARD PA [Primary Care Provider] - Follow up as needed TRAVEL OUTSIDE OF THE [place] IN LAST 30 DAYS: Yes - HPI Notes: Patient is a 28-year-old female that presents to the emergency department for chief complaint of seizure. Patient states that in the summer she has been getting seizures every 1 to 2 weeks. Her triggers are flashing lights and heat. Today she states she was at all of garden and felt warm but otherwise well. She went into the bathroom and there was a flickering light. She states when she walked out she felt like she was going to have a seizure and then woke up on the floor. Bystanders did report seizure-like activity. Patient states she believes she hit the left side of her head on the ground because she is having pain on the left side of her head that radiates down towards her eye. She denies any pain with ocular movement or vision changes. She denies any numbness or weakness. She does report nausea without vomiting. She states that she currently is feeling how she usually feels after a seizure. Past Medical History: Epilepsy Past Surgical History: [employer] shunt Social History: Denies alcohol and tobacco use Family History: Reviewed and noncontributory for presenting illness Allergies: Reviewed, see documented allergy list. REVIEW OF SYSTEMS: CONSTITUTIONAL : No fever No chills No diaphoresis No recent illness EENT: No vision changes No congestion No sore throat CARDIOVASCULAR: No chest pain No palpitations RESPIRATORY: No shortness of breath No cough No difficulty breathing GASTROINTESTINAL: No abdominal pain No vomiting No diarrhea GENITOURINARY: No dysuria No hematuria No difficulty urinating MUSCULOSKELETAL: No back pain No leg pain No arm pain SKIN: No rashes No lesions LYMPHATIC: No swollen, enlarged glands. NEUROLOGICAL: No lightheadedness Seizure headache No weakness No paresthesias PSYCHIATRIC: No anxiety No depression PHYSICAL EXAMINATION: Vital signs reviewed, nursing noted reviewed. GENERAL: Appears uncomfortable, obese and in no acute distress. HEAD: Atraumatic, normocephalic. EYES: Eyes appear normal, extraocular movements intact, sclera anicteric, conjunctiva are normal. ENT: nares patent, oropharynx clear without exudates. Moist mucous membranes. NECK: Normal range of motion, supple without lymphadenopathy LUNGS: Breath sounds clear to auscultation bilaterally and equal. No wheezes r ales or rhonchi. HEART: Regular rate and rhythm without murmurs ABDOMEN: Soft, nontender, normoactive bowel sounds. No rebound, guarding, or rigidity. No masses appreciated. EXTREMITIES: Nontender, good range of motion, no pitting or edema. NEUROLOGICAL: No focal neurological deficits. Moves all extremities spontaneously Motor and sensory grossly intact on exam. PSYCH: Normal mood, normal affect. SKIN: Warm, Dry, normal turgor, no rashes or lesions noted on exposed skin - Related Data Allergies/Adverse Reactions: ciprofloxacin [From Cipro] Allergy (Verified 08/19/16 15:15) ciprofloxacin HCl [From Cipro] Allergy (Verified 08/19/16 15:15) morphine [Morphine] Allergy (Verified 08/19/16 15:15) Sulfa (Sulfonamide Antibiotics) Allergy (Verified 08/19/16 15:15) vancomycin [Vancomycin] Allergy (Verified 08/19/16 15:15) Past Medical History - Social History Smoking Status: Never Smoker Chew tobacco use (# tins/day): No Frequency of alcohol use: Rare Drug Abuse: None Family History: Reviewed & Not Pertinent, Other Patient has suicidal ideation: No Patient has homicidal ideation: No Pulmonary Medical History: Reports: Hx Asthma, Hx Pneumonia Neurological Medical History: Reports: Hx Migraine, Hx Seizures Renal/ Medical History: Denies: Hx Peritoneal Dialysis Past Surgical History: Reports: Hx Neurologic Surgery - Brain surgery with [employer] shunt, Hx Orthopedic Surgery - bilaeral feet/knees x5, spine surgery, Hx Thyroid Surgery, Hx Tonsillectomy, Other - brain surgery- shunt, sinus, eye, ear surgery - Immunizations Hx Diphtheria, Pertussis, Tetanus Vaccination: Yes Physical Exam - Vital signs Vitals: Resp 23 H 10/21/18 13:53 Course - Re-evaluation Re-evalutation: 10/21/18 15:52 Vitals reviewed. Nursing notes reviewed. Patient appears uncomfortable and is complaining of a headache. She was given morphine and Zofran for symptom medic management. Seizure precautions have been initiated and she has not had any re peat seizure activity while in the ED. CT scan of her brain shows no acute intracranial process and her [employer] shunt appears to be working appropriately with no ventricular dilatation. Patient has no focal neurologic deficits. She is on Lamictal for her seizures and Lamictal levels have been ordered. 10/21/18 16:29 Patient reevaluated. She is feeling better and her headache has significantly improved. Her lab work does show a new anemia with a hemoglobin of 7.7. Patient reports she has a history of iron deficiency anemia but is unable to take iron because of her [employer] shunt. She is currently on her menstrual cycle although she states it is light. She has no symptoms of acute GI bleeding. Her vital signs are currently stable. Upon further conversation she now feels that she has been increasingly lightheaded recently. She states a few days ago she was standing in the shower and had to lay down on the ground in the shower because she felt like she was going to pass out. She had been attributing that to her seizures but it is possible she is symptomatic from her anemia. Patient will be transfused 2 units packed red blood cells and observed in the hospital for further anemia studies. Patient in agreement with this plan of care. Her case was discussed with Dr. Gómez who accepts admission Laboratory 10/21/18 10/21/18 10/21/18 14:08 14:08 14:08 WBC Cancelled RBC Cancelled Hgb Cancelled Hct Cancelled MCV Cancelled MCH Cancelled MCHC Cancelled RDW Cancelled Plt Count Cancelled Seg Neutrophils % Cancelled Lymphocytes % Cancelled Monocytes % Cancelled Eosinophils % Cancelled Basophils % Cancelled Absolute Neutrophils Cancelled Absolute Lymphocytes Cancelled Absolute Monocytes Cancelled Absolute Eosinophils Cancelled Absolute Basophils Cancelled Platelet Estimate Cancelled Sodium 140.3 Potassium 4.2 Chloride 108 H Carbon Dioxide 22 Anion Gap 10 BUN 14 Creatinine 0.82 Est GFR ( Amer) > 60 Est GFR (Non-Af Amer) > 60 Glucose 88 Calcium 9.0 Magnesium 2.0 Total Bilirubin 0.2 Direct Bilirubin 0.2 Neonat Total Bilirubin Not Reportable Neonat Direct Bilirubin Not Reportable Neonat Indirect Bili Not Reportable AST 19 ALT 20 Alkaline Phosphatase 65 Total Protein 6.9 Albumin 4.1 Serum HCG, Qual NEGATIVE Serum Alcohol < 10 Slides for Path Review Cancelled Blood Type Antibody Screen 10/21/18 10/21/18 15:25 15:25 WBC 9.1 RBC 3.69 L Hgb 7.7 L Hct 25.5 L MCV 69 L MCH 20.8 L MCHC 30.1 L RDW 19.0 H Plt Count 420 Seg Neutrophils % 60.0 Lymphocytes % 23.1 Monocytes % 8.5 Eosinophils % 7.5 H Basophils % 0.9 Absolute Neutrophils 5.5 Absolute Lymphocytes 2.1 Absolute Monocytes 0.8 Absolute Eosinophils 0.7 H Absolute Basophils 0.1 Platelet Estimate Sodium Potassium Chloride Carbon Dioxide Anion Gap BUN Creatinine Est GFR ( Amer) Est GFR (Non-Af Amer) Glucose Calcium Magnesium Total Bilirubin Direct Bilirubin Neonat Total Bilirubin Neonat Direct Bilirubin Neonat Indirect Bili AST ALT Alkaline Phosphatase Total Protein Albumin Serum HCG, Qual Serum Alcohol Slides for Path Review Blood Type Cancelled Antibody Screen Cancelled Head CT 10/21/18 15:10 IMPRESSION: No acute intracranial imaging findings. A ventriculoperitoneal shunt appears to be functioning. There is no ventricular dilatation. EVIDENCE OF ACUTE STROKE: NO. - Vital Signs Vital signs: Temp Pulse Resp BP Pulse Ox 98.2 F 17 119/88 H 100 10/21/18 14:01 10/21/18 16:01 10/21/18 16:01 10/21/18 16:01 - Laboratory Result Diagrams: 10/21/18 15:25 10/21/18 14:08 Laboratory results interpreted by me: 10/21/18 10/21/18 14:08 15:25 RBC 3.69 L Hgb 7.7 L Hct 25.5 L MCV 69 L MCH 20.8 L MCHC 30.1 L RDW 19.0 H Eosinophils % 7.5 H Absolute Eosinophils 0.7 H Chloride 108 H Discharge - Discharge Clinical Impression: Breakthrough seizure Closed head injury Qualifiers: Encounter type: initial encounter Qualified Code(s): S09.90XA - Unspecified injury of head, initial encounter Anemia Qualifiers: Anemia type: unspecified type Qualified Code(s): D64.9 - Anemia, unspecified Condition: Stable Disposition: ADMITTED OBSERVATION Admitting Provider: Elif (Hospitalist) Unit Admitted: Medical Floor Referrals: JOAN PRITCHARD PA [Primary Care Provider] - Follow up as needed
[2018-10-21 15:56] LABS: ABSOLUTE BASOPHILS # (AUTO) 0.1 10^3/uL (0.0-0.2); ABSOLUTE EOSINOPHILS # (AUTO) 0.7 10^3/uL (0.0-0.6); ABSOLUTE LYMPHOCYTES (AUTO) 2.1 10^3/uL (0.5-4.7); ABSOLUTE MONOCYTES (AUTO) 0.8 10^3/uL (0.1-1.4); ABSOLUTE NEUT (AUTO) 5.5 10^3/uL (1.7-8.2); BASOPHILS % (AUTO) 0.9 % (0-2); EOSINOPHILS % (AUTO) 7.5 % (0-6); HEMATOCRIT 25.5 % (36.0-47.0); LYMPHOCYTES % (AUTO) 23.1 % (13-45); MEAN CORPUSCULAR HEMOGLOBIN 20.8 pg (27.0-33.4); MEAN CORPUSCULAR HGB CONC 30.1 g/dL (32.0-36.0); MEAN CORPUSCULAR VOLUME 69 fl (80-97); MONOCYTES % (AUTO) 8.5 % (3-13); PLATELET COUNT 420 10^3/uL (150-450); RED BLOOD COUNT 3.69 10^6/uL (3.72-5.28); TOTAL CELLS COUNTED % (AUTO) 100 %; WHITE BLOOD COUNT 9.1 10^3/uL (4.0-10.5)
[2018-10-21 16:08] LABS: HEMOGLOBIN 7.7 g/dL (12.0-15.5)
[2018-10-21] MEDS ORDERED: NORMAL SALINE 250 ML IV PRN ×2 (16:26)
[2018-10-21] MEDS ORDERED: PROMETHAZINE HCL INJ 25 MG/1 ML VIAL IV PRN (17:27)
[2018-10-21] MEDS ORDERED: TEMAZEPAM 15 MG CAPSULE PO PRN (17:27)
[2018-10-21] MEDS ORDERED: IPRATROPIUM/ALBUTEROL 0.5-2.5 MG/3 ML AMPUL NEB PRN (17:27)
[2018-10-21] MEDS ORDERED: ACETAMINOPHEN 325 MG TABLET PO PRN (17:27)
--- NOTE | 2018-10-21 17:56 | PDOC H&P ---
History of Present Illness Admission Date/PCP: 10/21/18 16:39 DEION SHAH History of Present Illness: THERESE CORADO is a 28 year old female past medical history of epilepsy, hydrocephalus status post multiple shunt replacement, first shunt placed at age 10, follicular thyroid cancer status post surgery, acquired hypothyroidism, obesity, anemia presenting to ED complaining of seizure. Stating that previously she would get a seizure every 2 months but recently she has been having more frequent seizures, also complaining of generalized weakness, and occasional lightheadedness. Today while attending her garden, was doing fine, went to the bathroom, light was flickering, walked outside, felt like she was having a seizure, and next she knows she woke up on the floor. She thinks she had a grand mal seizure, but bystanders did not report any seizure-like activity. She reports being postictal however did not bite her tongue or loss of bowel or bladder control. Believes she did hit her head on the ground because she has left-sided rib pain. She is currently menstruating however she knows she has iron deficiency anemia without any sign of bleeding, she was told by her colon and rectal surgeon that she could not take iron because she is taking thyroid meds. A result resolved she has not been treating her anemia. She denies any easy bleeding, easy bruising, nosebleeds, hemoptysis, hematemesis, hematochezia, or melena. In ED she was found to have a hemoglobin of 7 and was started on PRBC transfusion and hospitalist was consulted for overnight observation. Past Medical History Pulmonary Medical History: Reports: Asthma, Pneumonia Neurological Medical History: Reports: Migraine, Seizures Past Surgical History Past Surgical History: Reports: Orthopedic Surgery - bilaeral feet/knees x5, spine surgery, Tonsillectomy, Other - brain surgery- shunt, sinus, eye, ear s urgery Social History Smoking Status: Never Smoker Family History Family History: Reviewed & Not Pertinent, Other Parental Family History Reviewed: Yes Children Family History Reviewed: Yes Sibling(s) Family History Reviewed.: Yes Medication/Allergy Home Medications: Buspirone HCl [Buspar 10 mg Tablet] 30 mg PO BID 10/21/18 Fluoxetine HCl [Prozac 20 mg Capsule] 60 mg PO DAILY 10/21/18 Lamotrigine [Lamictal] 150 mg PO BID 10/21/18 Levothyroxine Sodium [Synthroid] 0.175 mg PO DAILY 10/21/18 Montelukast Sodium [Singulair 10 mg Tablet] 10 mg PO QHS 10/21/18 Zonisamide [Zonegran 100 mg Capsule] 200 mg PO QHS 10/21/18 Allergies/Adverse Reactions: ciprofloxacin [From Cipro] Allergy (Verified 08/19/16 15:15) ciprofloxacin HCl [From Cipro] Allergy (Verified 08/19/16 15:15) morphine [Morphine] Allergy (Verified 08/19/16 15:15) Sulfa (Sulfonamide Antibiotics) Allergy (Verified 08/19/16 15:15) vancomycin [Vancomycin] Allergy (Verified 08/19/16 15:15) Review of Systems Review of Systems: as per hpi Physical Exam Vital Signs: Temp Pulse Resp BP Pulse Ox 98.2 F 13 130/95 H 100 10/21/18 14:01 10/21/18 17:01 10/21/18 17:01 10/21/18 17:01 Intake & Output 10/20/18 10/21/18 10/22/18 06:59 06:59 06:59 Weight 109.8 kg General appearance: PRESENT: morbidly obese Head exam: PRESENT: atraumatic, normocephalic Respiratory exam: PRESENT: clear to auscultation milena. ABSENT: rales, rhonchi, wheezes Cardiovascular exam: PRESENT: RRR. ABSENT: diastolic murmur, rubs, systolic murmur GI/Abdominal exam: PRESENT: normal bowel sounds, soft. ABSENT: distended, guarding, mass, organolmegaly, rebound, tenderness Extremities exam: PRESENT: full ROM. ABSENT: calf tenderness, clubbing, pedal edema Neurological exam: PRESENT: alert, awake, oriented to person, oriented to place, oriented to time, oriented to situation, CN II-XII grossly intact. ABSENT: motor sensory deficit Results Laboratory Results: 10/21/18 15:25 10/21/18 14:08 10/21/18 10/21/18 10/21/18 14:08 14:08 14:08 WBC Cancelled RBC Cancelled Hgb Cancelled Hct Cancelled MCV Cancelled MCH Cancelled MCHC Cancelled RDW Cancelled Plt Count Cancelled Seg Neutrophils % Cancelled Lymphocytes % Cancelled Monocytes % Cancelled Eosinophils % Cancelled Basophils % Cancelled Absolute Neutrophils Cancelled Absolute Lymphocytes Cancelled Absolute Monocytes Cancelled Absolute Eosinophils Cancelled Absolute Basophils Cancelled Sodium 140.3 Potassium 4.2 Chloride 108 H Carbon Dioxide 22 Anion Gap 10 BUN 14 Creatinine 0.82 Est GFR ( Amer) > 60 Est GFR (Non-Af Amer) > 60 Glucose 88 Calcium 9.0 Magnesium 2.0 Total Bilirubin 0.2 AST 19 ALT 20 Alkaline Phosphatase 65 Total Protein 6.9 Albumin 4.1 Serum HCG, Qual NEGATIVE Blood Type Antibody Screen 10/21/18 10/21/18 15:25 15:25 WBC 9.1 RBC 3.69 L Hgb 7.7 L Hct 25.5 L MCV 69 L MCH 20.8 L MCHC 30.1 L RDW 19.0 H Plt Count 420 Seg Neutrophils % 60.0 Lymphocytes % 23.1 Monocytes % 8.5 Eosinophils % 7.5 H Basophils % 0.9 Absolute Neutrophils 5.5 Absolute Lymphocytes 2.1 Absolute Monocytes 0.8 Absolute Eosinophils 0.7 H Absolute Basophils 0.1 Sodium Potassium Chloride Carbon Dioxide Anion Gap BUN Creatinine Est GFR ( Amer) Est GFR (Non-Af Amer) Glucose Calcium Magnesium Total Bilirubin AST ALT Alkaline Phosphatase Total Protein Albumin Serum HCG, Qual Blood Type Cancelled Antibody Screen Cancelled Impressions: Head CT 10/21/18 15:10 IMPRESSION: No acute intracranial imaging findings. A ventriculoperitoneal shunt appears to be functioning. There is no ventricular dilatation. EVIDENCE OF ACUTE STROKE: NO. Assessment and Plan - Diagnosis (1) Iron deficiency anemia Qualifiers: Iron deficiency anemia type: unspecified iron deficiency Qualified Code(s): D50.9 - Iron deficiency anemia, unspecified Is this a current diagnosis for this admission?: Yes Plan: Status post 2 PRBC transfusion. Patient does have history of iron deficiency anemia and currently menstruating. 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 Oral iron may interfere with levothyroxine absorption however patient could benefit from iron infusions. We will try to consult colon and rectal surgeon and see if that is an option. If yes we will start her on iron transfusion to follow-up with PCP. (2) Epilepsy Qualifiers: Intractability: intractable Is this a current diagnosis for this admission?: Yes Plan: Fall, seizure, aspiration precautions. Restart antiseizure meds. Monitor vitals, volume status and electrolytes replace as needed. (3) Hypothyroidism (acquired) Is this a current diagnosis for this admission?: Yes Plan: History of follicular thyroid adenoma status post surgery. Restart home meds. (4) Morbid obesity Is this a current diagnosis for this admission?: Yes Plan: Diet and lifestyle modification recommended. (5) Closed head injury Qualifiers: Encounter type: initial encounter Qualified Code(s): S09.90XA - Unspecified injury of head, initial encounter Is this a current diagnosis for this admission?: Yes Plan: Due to seizure. CT head negative. Supportive measures.
[2018-10-21] MEDS ORDERED: (PENDING PHARMACY ID) (Lamotrigine [Lamictal] 150 MG) PO SCH (18:00)
[2018-10-21] MEDS: BUSPIRONE HCL 10 MG TABLET PO SCH (18:33)
[2018-10-21] MEDS: LAMOTRIGINE 100 MG TABLET PO SCH (18:35)
[2018-10-21] MEDS: OXYCODONE-ACETAMINOPHEN 5-325 MG TABLET PO PRN (19:01)
[2018-10-21] MEDS ORDERED: HEPARIN SOD (PORCINE) 5,000 UNIT/ML 1 ML VIAL SUBCUT SCH (22:00)
[2018-10-21] MEDS: MONTELUKAST SODIUM 10 MG TABLET PO SCH (22:37)
[2018-10-21] MEDS: FAMOTIDINE 20 MG TABLET PO SCH (22:37)
[2018-10-21] MEDS: ZONISAMIDE 100 MG CAPSULE PO SCH (22:37)
[2018-10-22] MEDS: OXYCODONE-ACETAMINOPHEN 5-325 MG TABLET PO PRN ×2 (05:51→13:03)
[2018-10-22] MEDS: LAMOTRIGINE 100 MG TABLET PO SCH ×2 (05:51→17:04)
[2018-10-22] MEDS: ONDANSETRON HCL INJ/PF 4 MG/2 ML SDV IV PRN ×2 (05:52→13:03)
[2018-10-22 06:05] LABS: ABSOLUTE BASOPHILS # (AUTO) 0.1 10^3/uL (0.0-0.2); ABSOLUTE EOSINOPHILS # (AUTO) 0.7 10^3/uL (0.0-0.6); ABSOLUTE LYMPHOCYTES (AUTO) 2.7 10^3/uL (0.5-4.7); ABSOLUTE MONOCYTES (AUTO) 0.8 10^3/uL (0.1-1.4); ABSOLUTE NEUT (AUTO) 4.3 10^3/uL (1.7-8.2); BASOPHILS % (AUTO) 1.1 % (0-2); EOSINOPHILS % (AUTO) 8.2 % (0-6); HEMATOCRIT 28.9 % (36.0-47.0); LYMPHOCYTES % (AUTO) 31.7 % (13-45); MEAN CORPUSCULAR HEMOGLOBIN 22.3 pg (27.0-33.4); MEAN CORPUSCULAR VOLUME 72 fl (80-97); MONOCYTES % (AUTO) 9.2 % (3-13); PLATELET COUNT 345 10^3/uL (150-450); RED BLOOD COUNT 4.03 10^6/uL (3.72-5.28); RED CELL DISTRIBUTION WIDTH 20.6 % (11.5-14.0); SEGMENTED NEUTROPHILS % (AUTO) 49.8 % (42-78); TOTAL CELLS COUNTED % (AUTO) 100 %; WHITE BLOOD COUNT 8.7 10^3/uL (4.0-10.5)
[2018-10-22 06:21] LABS: ANION GAP 9 (5-19); BLOOD UREA NITROGEN 12 mg/dL (7-20); CALCIUM 8.7 mg/dL (8.4-10.2); CARBON DIOXIDE 21 mmol/L (22-30); CHLORIDE 110 mmol/L (98-107); GLUCOSE 80 mg/dL (75-110)
--- NOTE | 2018-10-22 09:26 | PDOC PROGRESS REPORT ---
Subjective Progress Note for:: 10/22/18 Subjective:: 28 year old female past medical history of epilepsy, hydrocephalus status post multiple shunt replacement, first shunt placed at age 10, follicular thyroid cancer status post surgery, acquired hypothyroidism, obesity, anemia presenting to ED complaining of seizure. Stating that previously she would get a seizure every 2 months but recently she has been having more frequent seizures, also complaining of generalized weakness, and occasional lightheadedness. Today while attending her garden, was doing fine, went to the bathroom, light was flickering, walked outside, felt like she was having a seizure, and next she knows she woke up on the floor. She thinks she had a grand mal seizure, but bystanders did not report any seizure-like activity. She reports being postictal however did not bite her tongue or loss of bowel or bladder control. Believes she did hit her head on the ground because she has left-sided rib pain. She is currently menstruating however she knows she has iron deficiency anemia without any sign of bleeding, she was told by her cleaning technician that she could not take iron because she is taking thyroid meds. A result resolved she has not been treating her anemia. She denies any easy bleeding, easy bruising, nosebleeds, hemoptysis, hematemesis, hematochezia, or melena. In ED she was found to have a hemoglobin of 7 and was started on PRBC transfusion and hospitalist was consulted for overnight observation. 10/22/[id number]-jlif-old female with multiple medical problems including epilepsy, hydrocephalus status post multiple stent replacements for stent was placed at the age of 10, follicular thyroid cancer status post surgery with acquired hypothyroidism, obesity, anemia came to the emergency room with complaints of seizure activity associated with generalized weakness and occasional lightheadedness. Patient hemoglobin was 7 at the time of admission 2 units of PRBC was given hemoglobin came up to 9.0. Check the iron studies this morning. No seizure activity since the admission. Reason For Visit: SYMPTOMATIC ANEMIA Physical Exam Vital Signs: Temp Pulse Resp BP Pulse Ox 98.1 F 66 16 108/55 L 99 10/22/18 07:20 10/22/18 07:20 10/22/18 07:20 10/22/18 07:20 10/22/18 07:20 Intake & Output 10/21/18 10/22/18 10/23/18 06:59 06:59 06:59 Intake Total 1400 Balance 1400 Weight 109.8 kg General appearance: PRESENT: no acute distress, morbidly obese Head exam: PRESENT: atraumatic Eye exam: PRESENT: PERRLA Mouth exam: PRESENT: dry mucosa Teeth exam: PRESENT: poor dentation Neck exam: ABSENT: carotid bruit, JVD, lymphadenopathy, thyromegaly Respiratory exam: PRESENT: clear to auscultation milena. ABSENT: rales, rhonchi, wheezes Cardiovascular exam: PRESENT: RRR. ABSENT: diastolic murmur, rubs, systolic murmur GI/Abdominal exam: PRESENT: normal bowel sounds, soft. ABSENT: distended, guarding, mass, organolmegaly, rebound, tenderness Rectal exam: PRESENT: deferred Extremities exam: PRESENT: full ROM. ABSENT: calf tenderness, clubbing, pedal edema Neurological exam: PRESENT: alert, awake, oriented to person, oriented to place, oriented to time, oriented to situation, CN II-XII grossly intact. ABSENT: motor sensory deficit Psychiatric exam: PRESENT: appropriate affect, normal mood. ABSENT: homicidal ideation, suicidal ideation Results Laboratory Results: 10/22/18 05:46 10/22/18 05:46 10/21/18 10/21/18 10/21/18 14:08 14:08 14:08 WBC Cancelled RBC Cancelled Hgb Cancelled Hct Cancelled MCV Cancelled MCH Cancelled MCHC Cancelled RDW Cancelled Plt Count Cancelled Seg Neutrophils % Cancelled Lymphocytes % Cancelled Monocytes % Cancelled Eosinophils % Cancelled Basophils % Cancelled Absolute Neutrophils Cancelled Absolute Lymphocytes Cancelled Absolute Monocytes Cancelled Absolute Eosinophils Cancelled Absolute Basophils Cancelled Sodium 140.3 Potassium 4.2 Chloride 108 H Carbon Dioxide 22 Anion Gap 10 BUN 14 Creatinine 0.82 Est GFR ( Amer) > 60 Est GFR (Non-Af Amer) > 60 Glucose 88 Calcium 9.0 Magnesium 2.0 Total Bilirubin 0.2 AST 19 ALT 20 Alkaline Phosphatase 65 Total Protein 6.9 Albumin 4.1 TSH Serum HCG, Qual NEGATIVE Blood Type Antibody Screen 10/21/18 10/21/18 10/21/18 15:25 15:25 16:30 WBC 9.1 RBC 3.69 L Hgb 7.7 L Hct 25.5 L MCV 69 L MCH 20.8 L MCHC 30.1 L RDW 19.0 H Plt Count 420 Seg Neutrophils % 60.0 Lymphocytes % 23.1 Monocytes % 8.5 Eosinophils % 7.5 H Basophils % 0.9 Absolute Neutrophils 5.5 Absolute Lymphocytes 2.1 Absolute Monocytes 0.8 Absolute Eosinophils 0.7 H Absolute Basophils 0.1 Sodium Potassium Chloride Carbon Dioxide Anion Gap BUN Creatinine Est GFR ( Amer) Est GFR (Non-Af Amer) Glucose Calcium Magnesium Total Bilirubin AST ALT Alkaline Phosphatase Total Protein Albumin TSH Serum HCG, Qual Blood Type Cancelled O POSITIVE Antibody Screen Cancelled NEGATIVE 10/22/18 10/22/18 10/22/18 05:46 05:46 05:46 WBC 8.7 RBC 4.03 Hgb 9.0 L Hct 28.9 L MCV 72 L MCH 22.3 L MCHC 31.0 L RDW 20.6 H Plt Count 345 Seg Neutrophils % 49.8 Lymphocytes % 31.7 Monocytes % 9.2 Eosinophils % 8.2 H Basophils % 1.1 Absolute Neutrophils 4.3 Absolute Lymphocytes 2.7 Absolute Monocytes 0.8 Absolute Eosinophils 0.7 H Absolute Basophils 0.1 Sodium 139.8 Potassium 4.0 Chloride 110 H Carbon Dioxide 21 L Anion Gap 9 BUN 12 Creatinine 0.66 Est GFR ( Amer) > 60 Est GFR (Non-Af Amer) > 60 Glucose 80 Calcium 8.7 Magnesium Total Bilirubin AST ALT Alkaline Phosphatase Total Protein Albumin TSH 0.82 Serum HCG, Qual Blood Type Antibody Screen Impressions: Head CT 10/21/18 15:10 IMPRESSION: No acute intracranial imaging findings. A ventriculoperitoneal shunt appears to be functioning. There is no ventricular dilatation. EVIDENCE OF ACUTE STROKE: NO. Assessment and Plan - Diagnosis (1) Anemia Qualifiers: Anemia type: unspecified type Qualified Code(s): D64.9 - Anemia, unspecified Is this a current diagnosis for this admission?: Yes Plan: 10/22/2018-patient admitted with hemoglobin of 7 acute blood loss anemia most likely secondary to heavy periods. Status post 2 units of blood transfusion hemoglobin came up to 9 plan is to check the anemia work-up today and repeat the labs tomorrow. Patient is complaining of weakness and lightheadedness but improving. (2) Epilepsy Qualifiers: Intractability: intractable Is this a current diagnosis for this admission?: Yes Plan: Fall, seizure, aspiration precautions. Restart antiseizure meds. Monitor vitals, volume status and electrolytes replace as needed. 10/22/2018-aspiration fall seizure precautions are requested antiseizure medication was restarted. No seizure activity was noted since the admission. pt is on Lamictal 150 mg every 12 hours. (3) Hypothyroidism (acquired) Is this a current diagnosis for this admission?: Yes Plan: History of follicular thyroid adenoma status post surgery. Restart home meds. 10/22/2018-patient is on levothyroxine for acquired hypothyroidism plan is to continue the present management. (4) Iron deficiency anemia Qualifiers: Iron deficiency anemia type: unspecified iron deficiency Qualified Code(s): D50.9 - Iron deficiency anemia, unspecified Is this a current diagnosis for this admission?: Yes Plan: Status post 2 PRBC transfusion. Patient does have history of iron deficiency anemia and currently menstruating. 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 Oral iron may interfere with levothyroxine absorption however patient could benefit from iron infusions. We will try to consult cleaning technician and see if that is an option. If yes we will start her on iron transfusion to follow-up with PCP. 10/22/2018-patient admitted with hemoglobin of 2:07 units of blood transfusion hemoglobin came up to 9.0. Presently she is having the menstrual periods. Plan to check the anemia work-up today if the iron level is low then we may give IV transfusion during this hospital stay. (5) Morbid obesity Is this a current diagnosis for this admission?: Yes Plan: Diet and lifestyle modification recommended. 10/22/2018-diet exercise weight loss lifestyle modifications are discussed with the patient dietary consult was requested. - Time Time Spent with patient: 25-34 minutes Medications reviewed and adjusted accordingly: Yes Anticipated discharge: Home
[2018-10-22 09:46] LABS: ABSOLUTE RETICS # 0.054 10^6/uL (0.028-0.122); RETICULOCYTE COUNT (AUTO) 1.33 % (0.66-2.85)
[2018-10-22 09:51] LABS: IRON(TIBC) 150.7 ug/dL (37-170)
[2018-10-22] MEDS: LEVOTHYROXINE SODIUM 0.1 MG TABLET PO SCH (09:54)
[2018-10-22] MEDS: DOCUSATE SODIUM 100 MG CAPSULE PO SCH (09:54)
[2018-10-22] MEDS: LEVOTHYROXINE SODIUM 0.075 MG TABLET PO SCH (09:55)
[2018-10-22] MEDS: BUSPIRONE HCL 10 MG TABLET PO SCH ×2 (09:55→17:04)
[2018-10-22] MEDS: FLUOXETINE HCL 20 MG CAPSULE PO SCH (09:55)
[2018-10-22] MEDS: FAMOTIDINE 20 MG TABLET PO SCH ×2 (09:55→21:15)
[2018-10-22] MEDS ORDERED: LEVOTHYROXINE SODIUM 0.175 MG PO SCH (10:00)
[2018-10-22 10:30] LABS: FERRITIN 5.87 ng/mL (6.2-137.0)
[2018-10-22 11:00] LABS: FOLATE 8.41 ng/mL (>2.76)
--- NOTE | 2018-10-22 13:39 | EKG REPORT ---
SEVERITY:- NORMAL ECG - SINUS RHYTHM : Confirmed by: Kristine Caraballo 22-Oct-2018 13:38:58
[2018-10-22] MEDS: MONTELUKAST SODIUM 10 MG TABLET PO SCH (21:16)
[2018-10-22] MEDS: ZONISAMIDE 100 MG CAPSULE PO SCH (21:16)
[2018-10-23] MEDS: ONDANSETRON HCL INJ/PF 4 MG/2 ML SDV IV PRN (01:09)
[2018-10-23] MEDS: OXYCODONE-ACETAMINOPHEN 5-325 MG TABLET PO PRN (01:09)
[2018-10-23] MEDS: LAMOTRIGINE 100 MG TABLET PO SCH (06:10)
[2018-10-23 07:48] LABS: ABSOLUTE EOSINOPHILS # (AUTO) 0.6 10^3/uL (0.0-0.6); ABSOLUTE LYMPHOCYTES (AUTO) 2.7 10^3/uL (0.5-4.7); ABSOLUTE MONOCYTES (AUTO) 0.8 10^3/uL (0.1-1.4); ABSOLUTE NEUT (AUTO) 4.2 10^3/uL (1.7-8.2); BASOPHILS % (AUTO) 0.6 % (0-2); EOSINOPHILS % (AUTO) 7.6 % (0-6); HEMATOCRIT 31.3 % (36.0-47.0); HEMOGLOBIN 9.4 g/dL (12.0-15.5); LYMPHOCYTES % (AUTO) 32.6 % (13-45); MEAN CORPUSCULAR HEMOGLOBIN 22.2 pg (27.0-33.4); MEAN CORPUSCULAR HGB CONC 30.2 g/dL (32.0-36.0); MEAN CORPUSCULAR VOLUME 74 fl (80-97); MONOCYTES % (AUTO) 9.4 % (3-13); PLATELET COUNT 390 10^3/uL (150-450); RED BLOOD COUNT 4.25 10^6/uL (3.72-5.28); RED CELL DISTRIBUTION WIDTH 20.4 % (11.5-14.0); SEGMENTED NEUTROPHILS % (AUTO) 49.8 % (42-78); TOTAL CELLS COUNTED % (AUTO) 100 %; WHITE BLOOD COUNT 8.4 10^3/uL (4.0-10.5)
[2018-10-23 08:10] LABS: ALANINE AMINOTRANSFERASE 15 U/L (9-52); ALBUMIN 3.7 g/dL (3.5-5.0); ALKALINE PHOSPHATASE 57 U/L (38-126); ANION GAP 8 (5-19); ASPARTATE AMINO TRANSFERASE 13 U/L (14-36); BILIRUBIN,DIRECT 0.2 mg/dL (0.0-0.4); BILIRUBIN,TOTAL 0.2 mg/dL (0.2-1.3); BLOOD UREA NITROGEN 13 mg/dL (7-20); CALCIUM 8.8 mg/dL (8.4-10.2); CARBON DIOXIDE 24 mmol/L (22-30); CHLORIDE 108 mmol/L (98-107); GLUCOSE 89 mg/dL (75-110); TOTAL PROTEIN 6.4 g/dL (6.3-8.2)
[2018-10-23 09:01] VITALS: BP 105/45
[2018-10-23] MEDS: BUSPIRONE HCL 10 MG TABLET PO SCH (09:12)
[2018-10-23] MEDS: LEVOTHYROXINE SODIUM 0.1 MG TABLET PO SCH (09:12)
[2018-10-23] MEDS: LEVOTHYROXINE SODIUM 0.075 MG TABLET PO SCH (09:12)
[2018-10-23] MEDS: FLUOXETINE HCL 20 MG CAPSULE PO SCH (09:12)
[2018-10-23] MEDS: DOCUSATE SODIUM 100 MG CAPSULE PO SCH (09:12)
[2018-10-23] MEDS: FAMOTIDINE 20 MG TABLET PO SCH (09:12)
--- NOTE | 2018-10-23 10:52 | PDOC DISCHARGE SUMMARY ---
General - Admit/Disc Date/PCP Admission Date/Primary Care Provider: 10/21/18 16:39 DEION SHAH Discharge Date: 10/23/18 - Discharge Diagnosis (1) Anemia Is this a current diagnosis for this admission?: Yes Summary: Status post 2 PRBC transfusion. Patient does have history of iron deficiency anemia and currently menstruating. 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 Oral iron may interfere with levothyroxine absorption however patient could benefit from iron infusions. We will try to consult marble polisher hand and see if that is an option. If yes we will start her on iron transfusion to follow-up with PCP. 10/23/[id number]-hxhs-old female admitted with anemia hemoglobin of 7 status post 2 units of blood transfusion hemoglobin came up to 9.4 patient is having the active menstrual bleeding at this time. Iron studies were done there relatively normal patient does not need any IV iron transfusion. Patient is strongly advised to follow-up with primary care physician in 1 week to repeat the labs and also advised her to discuss with the primary care physician about follow-up with the SIGNALLING AND COMMUNICATIONS ENGINEER and also with hematology. (2) Epilepsy Is this a current diagnosis for this admission?: Yes Summary: Fall, seizure, aspiration precautions. Restart antiseizure meds. Monitor vitals, volume status and electrolytes replace as needed. 10/23/2018-patient has history of epilepsy home medications are resumed during the hospital stay no seizure activity was noted during the hospital stay. (3) Hypothyroidism (acquired) Is this a current diagnosis for this admission?: Yes Summary: History of follicular thyroid adenoma status post surgery. Restart home meds. 10/23/2018-patient has acquired hypothyroidism secondary to thyroidectomy. thyroidectomy done because of the follicular adenoma. During the hospital stay levothyroxine was continued (4) Iron deficiency anemia Is this a current diagnosis for this admission?: Yes (5) Morbid obesity Is this a current diagnosis for this admission?: Yes Summary: 10/23/2018-patient BMI is more than 39 diet exercise weight loss and lifestyle modifications are discussed during the hospital stay. - Additional Information Resuscitation Status: Full Code Discharge Diet: Cardiac Discharge Activity: Activity As Tolerated Home Medications: Buspirone HCl [Buspar 10 mg Tablet] 30 mg PO BID 10/21/18 Fluoxetine HCl [Prozac 20 mg Capsule] 60 mg PO DAILY 10/21/18 Lamotrigine [Lamictal] 150 mg PO BID 10/21/18 Levothyroxine Sodium [Synthroid] 0.175 mg PO DAILY 10/21/18 Montelukast Sodium [Singulair 10 mg Tablet] 10 mg PO QHS 10/21/18 Zonisamide [Zonegran 100 mg Capsule] 200 mg PO QHS 10/21/18 History of Present Illness History of Present Illness: THERESE CORADO is a 28 year old female 28 year old female past medical history of epilepsy, hydrocephalus status post multiple shunt replacement, first shunt placed at age 10, follicular thyroid cancer status post surgery, acquired hypothyroidism, obesity, anemia presenting to ED complaining of seizure. Stating that previously she would get a seizure every 2 months but recently she has been having more frequent seizures, also complaining of generalized weakness, and occasional lightheadedness. Today while attending her garden, was doing fine, went to the bathroom, light was flickering, walked outside, felt like she was having a seizure, and next she knows she woke up on the floor. She thinks she had a grand mal seizure, but bystanders did not report any seizure-like activity. She reports being postictal however did not bite her tongue or loss of bowel or bladder control. Believes she did hit her head on the ground because she has left-sided rib pain. She is currently menstruating however she knows she has iron deficiency anemia without any sign of bleeding, she was told by her marble polisher hand that she could not take iron because she is taking thyroid meds. A result resolved she has not been treating her anemia. She denies any easy bleeding, easy bruising, nosebleeds, hemoptysis, hematemesis, hematochezia, or melena. In ED she was found to have a hemoglobin of 7 and was started on PRBC transfusion and hospitalist was consulted for overnight observation. Hospital Course Hospital Course: 10/[id number]-qcht-old female with multiple medical problems admitted with anemia with hemoglobin of 7 and at that time she has actively menstruating. Usually as per the patient she has heavy periods. Status post 2 units of blood transfusion hemoglobin came up to 9 yesterday and improved to 9.4 today. Patient is advised to follow-up with primary care physician in 1 week time. Physical Exam Vital Signs: Temp Pulse Resp BP Pulse Ox 97.3 F 75 16 140/56 H 99 10/23/18 08:46 10/23/18 08:46 10/23/18 08:46 10/23/18 08:46 10/23/18 08:46 Intake & Output 10/22/18 10/23/18 10/24/18 06:59 06:59 06:59 Intake Total 1400 1320 Balance 1400 1320 Weight 109.8 kg 109.8 kg General appearance: PRESENT: no acute distress, morbidly obese Head exam: PRESENT: atraumatic Eye exam: PRESENT: PERRLA Mouth exam: PRESENT: moist, tongue midline Teeth exam: PRESENT: poor dentation Neck exam: ABSENT: carotid bruit, JVD, lymphadenopathy, thyromegaly Respiratory exam: PRESENT: clear to auscultation milena. ABSENT: rales, rhonchi, wheezes Cardiovascular exam: PRESENT: RRR. ABSENT: diastolic murmur, rubs, systolic murmur GI/Abdominal exam: PRESENT: normal bowel sounds, soft. ABSENT: distended, guarding, mass, organolmegaly, rebound, tenderness Rectal exam: PRESENT: deferred Neurological exam: PRESENT: alert, awake, oriented to person, oriented to place, oriented to time, oriented to situation, CN II-XII grossly intact. ABSENT: motor sensory deficit Psychiatric exam: PRESENT: appropriate affect, normal mood. ABSENT: homicidal ideation, suicidal ideation Results Laboratory Results: 10/23/18 06:36 10/23/18 06:36 10/22/18 10/23/18 10/23/18 05:46 06:36 06:36 WBC 8.4 RBC 4.25 Hgb 9.4 L Hct 31.3 L MCV 74 L MCH 22.2 L MCHC 30.2 L RDW 20.4 H Plt Count 390 Seg Neutrophils % 49.8 Lymphocytes % 32.6 Monocytes % 9.4 Eosinophils % 7.6 H Basophils % 0.6 Absolute Neutrophils 4.2 Absolute Lymphocytes 2.7 Absolute Monocytes 0.8 Absolute Eosinophils 0.6 Absolute Basophils 0.0 Sodium 140.1 Potassium 4.0 Chloride 108 H Carbon Dioxide 24 Anion Gap 8 BUN 13 Creatinine 0.76 Est GFR ( Amer) > 60 Est GFR (Non-Af Amer) > 60 Glucose 89 Calcium 8.8 Magnesium 2.1 Iron 150.7 TIBC 381 % Saturation 40 Ferritin 5.87 L Total Bilirubin 0.2 AST 13 L ALT 15 Alkaline Phosphatase 57 Total Protein 6.4 Albumin 3.7 Vitamin B12 384.0 Folate 8.41 Impressions: Head CT 10/21/18 15:10 IMPRESSION: No acute intracranial imaging findings. A ventriculoperitoneal shunt appears to be functioning. There is no ventricular dilatation. EVIDENCE OF ACUTE STROKE: NO. Qualifiers - * PATIENT BEING DISCHARGED WITH ANY OF THE FOLLOWING DIAGNOSIS: No VTE patient discharged on overlapping Therapy?: No Acute Heart Failure - Is this a Heart Failure Patient?: No
== END 2018-10-23 10:23 | disposition home or self-care (01) ==
LOC: ER 13:32 → EH 16:39 → 4N 20:40
PROVIDERS: ADMIT Internal Medicine; ATTEND Internal Medicine
PROC: 30233N1 Transfusion of Nonautologous Red Blood Cells into Peripheral Vein, Percutaneous Approach (ICD-10-PCS; principal; 2018-10-21)
PROC: 30233N1 Transfusion of Nonautologous Red Blood Cells into Peripheral Vein, Percutaneous Approach (ICD-10-PCS; 2018-10-22)
DX: D50.9 Iron deficiency anemia, unspecified (principal); G40.919 Epilepsy, unspecified, intractable, without status epilepticus; E89.0 Postprocedural hypothyroidism; E66.01 Morbid (severe) obesity due to excess calories; R07.81 Pleurodynia; S09.90XA Unspecified injury of head, initial encounter; R51 Headache; W19.XXXA Unspecified fall, initial encounter; Z85.850 Personal history of malignant neoplasm of thyroid; Z68.39 Body mass index [BMI] 39.0-39.9, adult; Z79.899 Other long term (current) drug therapy; Z98.2 Presence of cerebrospinal fluid drainage device; Z66 Do not resuscitate
CPT/HCPCS: 93005; 99285; 96374; 96375; 86900; 86901; 36415 ×3; 36430; 86850; 82962; 80307; 82607; 82728; 82746; 83540; 83550; 83735 ×2; 84443; 84703; 85025 ×2; 85045; 80048; 80053 ×2; 80175; 86920; 70450; 93010; G0378 ×3; P9016 ×2; J3490 ×6; J2270; J2405 ×3

== ENCOUNTER 2018-10-25 18:20 | Emergency (ER) | payer BC ==
[2018-10-25] MEDS ORDERED: METOCLOPRAMIDE HCL INJ/PF 10 MG/2 ML SDV IV ONE (21:37)
--- NOTE | 2018-10-25 21:40 | ER Document Report ---
ED General - General Chief Complaint: Dizziness Stated Complaint: SHORTNESS OF BREATH Time Seen by Provider: 10/25/18 21:26 Primary Care Provider: JOAN PRITCHARD PA [Primary Care Provider] - Follow up as needed Notes: Patient is a 28-year-old female that comes emergency department for chief complaint of lightheadedness/dizziness, tiredness, and intermittent feeling of shortness of breath for the past several days. She was admitted to this facility on 10/21/2018 and transfused 2 packed red blood cells for anemia, she is currently on her menstrual cycle, she states she was told she has anemia from her menstrual cycles. She states that she also has a history of epilepsy, hydrocephalus with CALENDER LET OFF OPERATOR shunt, and that she states that she had a seizure while waiting in the lobby. She states that when she fell she must have landed on her elbow and struck her forehead on the left side, she hurts in her elbow, forehead, and in her neck and the back. She denies alcohol. She reports compliance with her medications. She states she usually has a seizure around once a week. She follows with neurology Dr. Pitts. TRAVEL OUTSIDE OF THE [place] IN LAST 30 DAYS: No - Related Data Allergies/Adverse Reactions: ciprofloxacin [From Cipro] Allergy (Verified 10/25/18 18:24) ciprofloxacin HCl [From Cipro] Allergy (Verified 10/25/18 18:24) orange Allergy (Verified 10/25/18 18:24) peanut Allergy (Verified 10/25/18 18:24) Pork/Porcine Containing Products Allergy (Verified 10/25/18 18:24) Sulfa (Sulfonamide Antibiotics) Allergy (Verified 10/25/18 18:24) tomato Allergy (Verified 10/25/18 18:24) vancomycin [Vancomycin] Allergy (Verified 10/25/18 18:24) Past Medical History - General Information source: Patient - Social History Smoking Status: Never Smoker Frequency of alcohol use: None Drug Abuse: None Lives with: Family Family History: Reviewed & Not Pertinent, Other Pulmonary Medical History: Reports: Hx Asthma, Hx Pneumonia Neurological Medical History: Reports: Hx Migraine, Hx Seizures Renal/ Medical History: Denies: Hx Peritoneal Dialysis Psychiatric Medical History: Reports: Hx Depression Past Surgical History: Reports: Hx Neurologic Surgery - Brain surgery with CALENDER LET OFF OPERATOR shunt, Hx Orthopedic Surgery - bilaeral feet/knees x5, spine surgery, Hx Thyroid Surgery, Hx Tonsillectomy, Other - brain surgery- shunt, sinus, eye, ear surgery - Immunizations Hx Diphtheria, Pertussis, Tetanus Vaccination: Yes Review of Systems - Review of Systems Constitutional: See HPI EENT: No symptoms reported Cardiovascular: See HPI Respiratory: No symptoms reported Gastrointestinal: No symptoms reported Genitourinary: No symptoms reported Female Genitourinary: No symptoms reported Musculoskeletal: See HPI Skin: No symptoms reported Hematologic/Lymphatic: No symptoms reported Neurological/Psychological: See HPI Physical Exam - Vital signs Vitals: Temp Pulse Resp BP Pulse Ox 98.1 F 86 20 139/64 H 97 10/25/18 18:29 10/25/18 18:29 10/25/18 18:29 10/25/18 18:29 10/25/18 18:29 - Notes Notes: GENERAL: Alert, interacts well. No acute distress. HEAD: Normocephalic, atraumatic. EYES: Pupils equal, round, and reactive to light. Extraocular movements intact. ENT: Oral mucosa moist, tongue midline. Oropharynx unremarkable. Airway patent. Nares patent, no nasal septal hematoma, TM's intact. NECK: Full range of motion. Supple. Trachea midline. LUNGS: Clear to auscultation bilaterally, no wheezes, rales, or rhonchi. No respiratory distress. HEART: Regular rate and rhythm. No murmur ABDOMEN: Soft, non-tender. Non-distended. Bowel sounds present in all 4 quadrants. GENITOURINARY: Deferred EXTREMITIES: Patient complains with palpation over the left elbow generally, no swelling, normal range of motion, normal wrist and shoulder exam, normal distal neurovascular exam. Extremities otherwise unremarkable. BACK: Patient complains of pain with palpation of the general cervical area including the midline. Normal thoracic and lumbar exams. No signs of trauma. No saddle anesthesia, normal distal neurovascular exam. Moves all extremities in full range of motion. NEUROLOGICAL: Alert and oriented x3. Normal speech. Cranial nerves II through XII grossly intact. PSYCH: Normal affect, normal mood. SKIN: Warm, dry, normal turgor. No rashes or lesions noted. Course - Re-evaluation Re-evalutation: Patient states she hit her forehead and her neck hurts. I am unclear if she passed out or if there was a seizure, patient states she feels like it was a seizure based on her headache afterwards. Patient is not postictal on my evaluation, is unclear whether she was postictal otherwise. She did not bite her tongue. CAT scan of her head and neck are unremarkable, she does have a history of CALENDER LET OFF OPERATOR shunt for hydrocephalus, there is no change in the exam. She has no neurological deficits. She is well-appearing on exam. She was treated for headache. CBC shows hemoglobin of 9.5, no drop from prior, no current bleeding, vital signs are unremarkable. Chemistry unremarkable. Chest x-ray unremarkable. Elbow x-ray unremarkable, reported elbow pain from the fall, no signs of trauma on exam. I discussed with patient her work-up, she became very frustrated, she stated if it was not her low hemoglobin and there must be something else wrong causing her dizziness, lightheadedness, some shortness of breath. We did agree to run a d- dimer however she is very low risk. D-dimer was unfortunately slightly positive, CT was performed, this shows incidental findings of probable hemangioma but no blood clot. I did discuss with patient work-up and follow-up. Patient with no decompensation on reevaluation's. It is possible she had a seizure, however this is common for patient, she does follow-up with local neurology. Patient will be discharged at this time with follow-up, discussed return precautions, patient states understanding and agreement. Stable time of discharge. One of the nurses came up to me after patient was discharged and reported that people are now stating they witnessed patient looking around before seemingly intentionally collapsing in the lobby and then exaggerating shaking when healthcare workers approached. - Vital Signs Vital signs: Temp Pulse Resp BP Pulse Ox 98.1 F 86 15 111/62 100 10/26/18 02:01 10/25/18 18:29 10/26/18 02:01 10/26/18 02:01 10/26/18 02:01 - Laboratory Result Diagrams: 10/25/18 21:34 10/25/18 21:34 Laboratory results interpreted by me: 10/25/18 10/25/18 10/25/18 21:34 21:34 21:34 WBC 11.0 H Hgb 9.5 L Hct 31.2 L MCV 73 L MCH 22.3 L MCHC 30.4 L RDW 21.7 H D-Dimer 0.57 H Total Bilirubin 0.1 L - EKG Interpretation by Me Additional EKG results interpreted by me: EKG shows sinus rhythm at a rate of 68, QTC of 426, no T wave inversions or ST segment changes in consecutive leads, normal axis. NV interval of 160. Discharge - Discharge Clinical Impression: Breakthrough seizure, Dizziness Closed head injury Qualifiers: Encounter type: initial encounter Qualified Code(s): S09.90XA - Unspecified injury of head, initial encounter Iron deficiency anemia Qualifiers: Iron deficiency anemia type: unspecified iron deficiency Qualified Code(s): D50 .9 - Iron deficiency anemia, unspecified Epilepsy Qualifiers: Epilepsy type: unspecified Intractability: not intractable Status epilepticus: without status epilepticus Qualified Code(s): G40.909 - Epilepsy, unspecified, not intractable, without status epilepticus Condition: Stable Disposition: HOME, SELF-CARE Additional Instructions: Your work-up including all your imaging does not show any concerning findings at this time. There is an incidental somewhat abnormal appearance of the liver, possible hemangiomas, please follow-up with your primary care for additional evaluation of this. Follow-up with your neurologist for additional evaluation and management of seizures. Return if you worsen including fevers, vomiting, difficulty breathing, chest pain, severe headache, repeat seizures, or any other concerning or worsening symptoms. Referrals: JOAN PRITCHARD PA [Primary Care Provider] - Follow up as needed
[2018-10-25 21:45] LABS: ABSOLUTE BASOPHILS # (AUTO) 0.1 10^3/uL (0.0-0.2); ABSOLUTE EOSINOPHILS # (AUTO) 0.6 10^3/uL (0.0-0.6); ABSOLUTE LYMPHOCYTES (AUTO) 2.9 10^3/uL (0.5-4.7); ABSOLUTE MONOCYTES (AUTO) 0.9 10^3/uL (0.1-1.4); ABSOLUTE NEUT (AUTO) 6.5 10^3/uL (1.7-8.2); BASOPHILS % (AUTO) 1.3 % (0-2); EOSINOPHILS % (AUTO) 5.4 % (0-6); HEMATOCRIT 31.2 % (36.0-47.0); HEMOGLOBIN 9.5 g/dL (12.0-15.5); LYMPHOCYTES % (AUTO) 26.3 % (13-45); MEAN CORPUSCULAR HEMOGLOBIN 22.3 pg (27.0-33.4); MEAN CORPUSCULAR HGB CONC 30.4 g/dL (32.0-36.0); MEAN CORPUSCULAR VOLUME 73 fl (80-97); PLATELET COUNT 415 10^3/uL (150-450); RED BLOOD COUNT 4.25 10^6/uL (3.72-5.28); RED CELL DISTRIBUTION WIDTH 21.7 % (11.5-14.0); TOTAL CELLS COUNTED % (AUTO) 100 %
[2018-10-25 22:09] LABS: ALANINE AMINOTRANSFERASE 28 U/L (9-52); ALCOHOL < 10 mg/dL (NONE DETECTED); ALKALINE PHOSPHATASE 67 U/L (38-126); ANION GAP 10 (5-19); ASPARTATE AMINO TRANSFERASE 21 U/L (14-36); BILIRUBIN,DIRECT 0.1 mg/dL (0.0-0.4); BILIRUBIN,TOTAL 0.1 mg/dL (0.2-1.3); BLOOD UREA NITROGEN 11 mg/dL (7-20); CARBON DIOXIDE 23 mmol/L (22-30); CHLORIDE 107 mmol/L (98-107); GLUCOSE 83 mg/dL (75-110); TOTAL PROTEIN 6.6 g/dL (6.3-8.2)
--- NOTE | 2018-10-25 22:23 | RADIOLOGY REPORT (SQ) ---
EXAM DESCRIPTION: CT CERVICAL SPINE WITHOUT IV CONTRAST COMPLETED DATE/TME: 10/25/2018 21:36 CLINICAL HISTORY: 28 years, Female, fall, injury, pain COMPARISON: 05/04/2016 CT TECHNIQUE: 247 Images stored on PACS. All CT scanners at this facility use dose modulation, iterative reconstruction, and/or weight based dosing when appropriate to reduce radiation dose to as low as reasonably achievable (ALARA). [facility]: Dose Right [facility]: CareDose [facility]: Dose Right [facility]: Teradose 4D [facility]: [employer] LIMITATIONS: None. FINDINGS: Vertebral body height and alignment is preserved. The disc spaces are maintained. Slight straightening of the normal cervical lordosis which may reflect muscle spasm/strain. Prevertebral soft tissues are normal IMPRESSION: Straightening of the normal cervical lordosis may reflect muscle spasm/strain. Otherwise negative exam TECHNICAL DOCUMENTATION: Quality ID # [id number]: Final reports with documentation of one or more dose reduction techniques (e.g., Automated exposure control, adjustment of the mA and/or kV according to patient size, use of iterative reconstruction technique) copyright 2011 [employer]- All Rights Reserved
--- NOTE | 2018-10-25 22:25 | RADIOLOGY REPORT (SQ) ---
EXAM DESCRIPTION: RadLex: CT HEAD WITHOUT IV CONTRAST CLINICAL HISTORY: 28 years Female; fall, injury, pain TECHNIQUE: Noncontrast CT head. All CT scans at this facility use dose modulation, iterative reconstruction, and/or weight based dosing when appropriate to reduce radiation dose to as low as reasonably achievable. COMPARISON: 10/21/2018 FINDINGS: Right frontal ventriculostomy remains in place, tip between the foramen of Hanna. No ventricular enlargement or subependymal edema. There is persistent slight asymmetry of the lateral ventricles, left slightly larger than the right. No acute hemorrhage. No acute cerebral edema. Visualized portions of paranasal sinuses and mastoids are clear. No acute calvarial fractures. IMPRESSION: 1. No acute intracranial findings. 2. No change since 10/21/2018 3. Ventriculostomy, as on prior exam.
--- NOTE | 2018-10-25 22:27 | RADIOLOGY REPORT (SQ) ---
EXAM DESCRIPTION: XR CHEST 1 VIEW COMPLETED DATE/TME: 10/25/2018 21:37 CLINICAL HISTORY: 28 years, Female, shortness of breath COMPARISON: None. NUMBER OF VIEWS: 1 TECHNIQUE: Portable chest LIMITATIONS: None. FINDINGS: Heart size normal. Post surgical changes of the thoracic spine. Lungs clear. No pneumothorax IMPRESSION: No acute cardiopulmonary process copyright 2010 [employer] [facility] [employer]- All Rights Reserved
--- NOTE | 2018-10-25 22:28 | RADIOLOGY REPORT (SQ) ---
EXAM DESCRIPTION: XR ELBOW 1-2 VIEWS COMPLETED DATE/TME: 10/25/2018 21:36 CLINICAL HISTORY: 28 years, Female, fall, injury, pain COMPARISON: None. NUMBER OF VIEWS: 2 TECHNIQUE: 2 views left elbow LIMITATIONS: None. FINDINGS: Negative for fracture or dislocation. Soft tissues are unremarkable IMPRESSION: Negative exam copyright 2011 [employer]- All Rights Reserved
[2018-10-25] MEDS ORDERED: ONDANSETRON HCL INJ/PF 4 MG/2 ML SDV IV ONE (22:38)
[2018-10-25] MEDS ORDERED: MORPHINE SULFATE 10 MG/ML INJ IV ONE (22:38)
--- NOTE | 2018-10-25 23:10 | EKG REPORT ---
SEVERITY:- NORMAL ECG - SINUS RHYTHM : Confirmed by: Kristine Caraballo 25-Oct-2018 23:09:19
--- NOTE | 2018-10-26 01:15 | RADIOLOGY REPORT (SQ) ---
EXAM DESCRIPTION: RadLex: CT CHEST ANGIOGRAPHY WITHOUT THEN WITH IV CONTRAST CLINICAL HISTORY: 28 years Female; dizziness, shortness of breath, weakness, +D-Dimer TECHNIQUE: CT angiogram of the chest using intravenous contrast.. MIP reconstructions were performed. All CT scans at this facility use dose modulation, iterative reconstruction, and/or weight based dosing when appropriate to reduce radiation dose to as low as reasonably achievable. COMPARISON: CT 09/07/2013 FINDINGS: Chest: No filling defects in the central pulmonary arteries. No acute infiltrate, effusion, or pneumothorax. Mediastinum is normal, with no adenopathy or mass. Thoracic aorta is normal. No aneurysm or dissection. Scoliosis, status post Bean graham placement, is again noted. 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 Liver: There is a 2.9 cm slightly hypodense lesion in segment 7, new since prior exam. 4.1 cm lesion in segment 6 is also noted, new since prior exam. There is a small blush of contrast at the lateral margin of this lesion 5 mm in diameter that may have been present on prior exam, suggesting possible hemangioma. IMPRESSION: 1. No CT evidence for pulmonary embolism. 2. No acute pulmonary findings. 3. At least 2 liver lesions, new since 09/07/2013. One of these could be a hemangioma. Consider follow-up liver ultrasound to help differentiate cyst versus hemangioma versus a mass which may require additional imaging. 4. Scoliosis, status post Bean graham placement, as on prior exam.
[2018-10-26 02:12] VITALS: BP 111/62
== END 2018-10-26 02:12 | disposition home or self-care (01) ==
LOC: ER 18:20
DX: S09.90XA Unspecified injury of head, initial encounter (principal); D50.9 Iron deficiency anemia, unspecified; G40.909 Epilepsy, unspecified, not intractable, without status epilepticus; R42 Dizziness and giddiness; R06.02 Shortness of breath; X58.XXXA Exposure to other specified factors, initial encounter; Z79.899 Other long term (current) drug therapy; J45.909 Unspecified asthma, uncomplicated
CPT/HCPCS: 93005; 99285; 96374; 96375; 36415; 80307; 83735; 84703; 85025; 80053; 85379; 71045; 73070; 70450; 71275; 72125; 93010; J2765; J2270; J2405

== ENCOUNTER 2018-12-13 11:24 | Emergency (ER) | payer BC ==
[2018-12-13] MEDS ORDERED: NORMAL SALINE 1000 ML 1,000 ML IV ONE (13:39)
--- NOTE | 2018-12-13 14:03 | ER Document Report ---
ED Dizziness/Weakness - General Chief Complaint: Dizziness Stated Complaint: WEAKNESS Time Seen by Provider: 12/13/18 13:38 Primary Care Provider: JOAN PRITCHARD PA [Primary Care Provider] - Follow up as needed Notes: Patient is a 28-year-old female with a history of a thyroidectomy, hydrocephaly with right sided TRACK SERVICE PERSON shunt, migraines and seizures who is presents to the emergency department with a chief complaint of dizziness and lightheadedness. Patient states she is feeling this for 1 week and has had extreme fatigue. Patient states she is on the last day of her menstrual cycle. Patient reports she does not bleed extremely heavy but has noticed clots. Patient states she did not follow-up with [facility] from her previous history of anemia and heavy periods. Patient is not on control. Patient states when she is anemic and feels lightheaded she does have seizures. She reports she does see Dr. Pitts, who is her neurologist. Patient does take Lamictal for her seizures and has been taking it appropriately and daily. Patient reports nausea without vomiting or diarrhea. Patient reports a generalized headache. Patient reports while in the lobby she was sitting upright in the wheelchair when she had a seizure lasting 30 to 60 seconds. Patient states that she thinks sitting up in the wheelchair exacerbated her seizure. TRAVEL OUTSIDE OF THE [place] IN LAST 30 DAYS: No - Related Data Allergies/Adverse Reactions: ciprofloxacin [From Cipro] Allergy (Verified 12/13/18 11:25) ciprofloxacin HCl [From Cipro] Allergy (Verified 12/13/18 11:25) orange Allergy (Verified 12/13/18 11:25) peanut Allergy (Verified 12/13/18 11:25) Pork/Porcine Containing Products Allergy (Verified 12/13/18 11:25) Sulfa (Sulfonamide Antibiotics) Allergy (Verified 12/13/18 11:25) tomato Allergy (Verified 12/13/18 11:25) vancomycin [Vancomycin] Allergy (Verified 12/13/18 11:25) Past Medical History - General Information source: Patient - Social History Smoking Status: Unknown if Ever Smoked Family History: Reviewed & Not Pertinent, Other Patient has suicidal ideation: No Patient has homicidal ideation: No - Past Medical History Cardiac Medical History: Reports: None Pulmonary Medical History: Reports: Hx Asthma, Hx Pneumonia EENT Medical History: Reports: None Neurological Medical History: Reports: Hx Migraine, Hx Seizures Endocrine Medical History: Reports: Hx Hypothyroidism Renal/ Medical History: Reports: None. Denies: Hx Peritoneal Dialysis Malignancy Medical History: Reports: None GI Medical History: Reports: None Musculoskeletal Medical History: Reports None Skin Medical History: Reports None Psychiatric Medical History: Reports: Hx Depression Traumatic Medical History: Reports: None Infectious Medical History: Reports: None Past Surgical History: Reports: Hx Neurologic Surgery - Brain surgery with TRACK SERVICE PERSON shunt, Hx Orthopedic Surgery - bilaeral feet/knees x5, spine surgery, Hx Thyroid Surgery, Hx Tonsillectomy, Other - brain surgery- shunt, sinus, eye, ear surgery - Immunizations Hx Diphtheria, Pertussis, Tetanus Vaccination: Yes Review of Systems - Review of Systems Constitutional: See HPI EENT: No symptoms reported Cardiovascular: See HPI Respiratory: No symptoms reported Gastrointestinal: See HPI Genitourinary: No symptoms reported Female Genitourinary: No symptoms reported Musculoskeletal: No symptoms reported Skin: No symptoms reported Hematologic/Lymphatic: No symptoms reported Neurological/Psychological: No symptoms reported Physical Exam - Vital signs Vitals: Temp Pulse Resp BP Pulse Ox 98.7 F 90 20 145/87 H 97 12/13/18 11:35 12/13/18 11:35 12/13/18 11:35 12/13/18 11:35 12/13/18 11:35 Interpretation: Normal - Notes Notes: GENERAL: Well-appearing, well-nourished and in no acute distress. HEAD: Atraumatic, normocephalic. EYES: Pupils equal round and reactive to light, extraocular movements intact, sclera anicteric, conjunctiva are normal, not pale. ENT: Nares patent, oropharynx clear without exudates. Moist mucous membranes. NECK: Normal range of motion, supple without lymphadenopathy or JVD. LUNGS: Breath sounds clear to auscultation bilaterally and equal. No wheezes rales or rhonchi. HEART: Regular rate and rhythm without murmurs, rubs or gallops. ABDOMEN: Soft, nontender, normoactive bowel sounds. No guarding, no rebound. No masses appreciated. BACK: No cervical, thoracic, lumbar midline tenderness. No saddle anesthesia, normal distal neurovascular exam. GENITOURINARY: Deferred. EXTREMITIES: Normal range of motion, no pitting or edema. No clubbing or cyanosis. NEUROLOGICAL: Cranial nerves II through XII grossly intact. Normal speech, normal gait. PSYCH: Normal mood, normal affect. SKIN: Warm, Dry, normal turgor, no rashes or lesions noted. Course - Re-evaluation Re-evalutation: 12/13/18 14:00 Upon initial evaluation patient is texting on cell phone and sitting on the stretcher in no acute distress. Patient was placed on seizure precautions as she had a seizure-like activity in the lobby for about 30 to 60 seconds. Bystanders state she did not fall or hit her head. She did not have a loss of bladder, biting of the tongue, or any injury from the seizure. Patient immediately woke up and had no episode of post ictal behavior. Patient reports that when it becomes very hot outside this does exacerbate her migraines and s eizures. Patient also complains of a generalized headache all over. Patient is alert and oriented x3, speech is clear and appropriate, patient is nontoxic- appearing. Will obtain basic labs, urinalysis and reevaluate. Patient reports she does take Lamictal for her seizures and has been taking her medication religiously and has not missed a dose. 12/13/18 15:32 Upon reevaluation patient is resting comfortably on stretcher texting on her cell phone. I did inform the patient that her hemoglobin was 9.6 and although this is anemic this is not critical that requires blood transfusion. Patient states her headache is slightly better after receiving the morphine but does not know why she feels bad. I did inform the patient that she does have a urinary tract infection. Patient states that within the past month she was seen at [facility] multiple times for a UTI and was told that she had trichomonas. Patient states she was given multiple rounds of antibiotics and has since had no urinary symptoms or vaginal discharge. Patient reports she has not had any sexual intercourse in the past 3 months or since being treated for the STI. Patient states she is concerned that she feels a dizzy and lightheaded when she stands up. I did discuss the possibility of obtaining a CT scan of her head due to the shunt. Patient states she would really like the CAT scan to make sure everything is okay. Will give patient a small liter bolus and first dose of antibiotic for her UTI. 12/13/18 16:54 CT that was negative for any acute abnormality. Patient reports feeling slightly better. If patient is able to ambulate will discharge. Patient agrees with this treatment plan. Patient did receive first dose of antibiotic for the UTI will be prescribed Keflex. Patient reports she does have insurance and a primary care physician which I did recommend following up with them in the next week. Patient to return for any concerning signs or symptoms. 12/13/18 17:15 Patient was up for discharge and ambulated to the restroom. At that point she states that she fell to the ground as she passed out and became lightheaded. Patient reports she struck the front of her head on the floor. Patient denies any other injury or neck pain. Patient did ask the nurse for another dose of morphine. I did going to reassess the patient. Patient is alert and oriented x3, there is no ecchymosis, erythema, edema noted to the patient's forehead where she reports striking her head on the hard floor. Negative rosales sign, no cervical midline tenderness, patient able to move her head and full range of motion. Patient reports she does have a headache. I did tell the patient that we could give her Tylenol but I did not want to give her narcotics as now she has a head injury and we need to monitor for altered mental status. Patient reports that Tylenol is not going to help her. Will check your blood sugars the patient has been here for a while and has not had anything by mouth. Will feed the patient and monitor. Patient is receiving a second 500 mL bolus of fluid. 12/13/18 19:16 Upon reevaluation patient sitting upright in stretcher tolerating liquids. Patient does complain of a headache and has asked the nurse multiple times for another dose of morphine. I informed the patient that once again she stated she has fallen and we do not want to give narcotics to the patient with a head injury. I did offer Tylenol. Patient states she will just take Tylenol at home. I did inform the patient to follow-up with her primary care physician and perhaps hematology as she may benefit from iron infusions if she continues to be symptomatic and as she has reported she cannot take p.o. iron. Patient verbalizes understanding. We will continue discharge instructions. Patient alert and oriented x3, speech is clear and appropriate. I did evaluate the patient's forehead once again as she states this is where she hit her head there is no bruising, swelling, laceration, abrasion or any abnormality to the forehead. - Vital Signs Vital signs: Temp Pulse Resp BP Pulse Ox 98.8 F 80 20 121/73 98 12/13/18 18:33 12/13/18 12:00 12/13/18 18:01 12/13/18 18:01 12/13/18 18:01 - Laboratory Result Diagrams: 12/13/18 14:30 12/13/18 14:30 Laboratory results interpreted by me: 12/13/18 12/13/18 12/13/18 13:25 14:30 14:30 Hgb 9.6 L Hct 30.7 L MCV 75 L MCH 23.6 L MCHC 31.4 L RDW 22.2 H Total Bilirubin < 0.1 L Urine Blood SMALL H Ur Leukocyte Esterase LARGE H - Diagnostic Test Radiology reviewed: Reports reviewed Radiology results interpreted by me: 12/13/18 16:[address] 12/13/18 15:32 IMPRESSION: No acute intracranial pathology. Stable size and configuration of the lateral ventricles status post right frontal approach shunt catheter placement. EVIDENCE OF ACUTE STROKE: NO. Discharge - Discharge Clinical Impression: Dizziness Urinary tract infection Qualifiers: Urinary tract infection type: site unspecified Hematuria presence: with hemat uria Qualified Code(s): N39.0 - Urinary tract infection, site not specified Anemia Qualifiers: Anemia type: unspecified type Qualified Code(s): D64.9 - Anemia, unspecified Head injury Qualifiers: Encounter type: initial encounter Qualified Code(s): S09.90XA - Unspecified injury of head, initial encounter Condition: Stable Disposition: HOME, SELF-CARE Additional Instructions: Today you are seen in the emergency department for dizziness and l ightheadedness. You were slightly anemic with a hemoglobin of 9.6 which is low but not critically low requiring a blood transfusion. You have stated you are unable to take p.o. iron due to your thyroid medication and possible interaction. Today your lab results did reveal a urinary tract infection. This at times can cause some people to feel lightheaded and not they are normal. Please continue pushing fluids, 3 to 4 quarts a day. Return to the emergency department if you develop fever, chills, flank pain, inability to urinate or blood in the urine. In regards to the anemia please seek medical attention if you notice black or tarry stools, bloody vomiting, shortness of breath, chest pa in or if you pass out. Please continue all of your home medications including the Lamictal for seiz ures. Today you were also seen in the emergency department for a fall while you are a ttempting to get discharged. We have monitored you for multiple hours after the fall and you did not have any vomiting, disorientation, or concerning symptoms. We have offered you Tylenol in which you politely declined. Please return to emergency department if you have persistent or projectile vomiting, seizure, confusion, unequal pupil size, worsening headache or any other concerning signs or symptoms. Urinary Tract Infection Your evaluation indicates that you have a urinary tract infection. This is due to germs growing in the bladder. This is a common problem. This infection usually responds quickly to antibiotics. Your antibiotic should be taken exactly as prescribed. Drink plenty of fluids -- three to four quarts a day. Occasionally, a bladder anesthetic will be prescribed to help stop the feeling of urgency until the antibiotic has a chance to clear the infection. This may cause your urine to be dark orange. Certain urine infections require a culture. If the doctor obtained a culture, the results will be back in two days. You should call to see if a change in treatment is needed. A repeat urinalysis after you finish treatment is often recommended. The physician will let you know if further testing is required. Call the doctor if you develop fever, chills, flank pain, inability to urinate, or blood in the urine. Anemia You have been found to have a significant anemia (a lower than normal amount of red blood cells). Anemia can be due to iron deficiency, vitamin deficiency, abnormal bleeding, or internal diseases. Usually, further tests are necessary to find the exact cause of the anemia. The most common cause of anemia is iron deficiency, often brought on by blood loss. This can be treated with iron supplements. If this appears to be the most likely cause, iron tablets may be prescribed even before all tests are complete. Contact the doctor at once if you note black or tarry-looking stools, bloody vomiting, shortness of breath, chest pain, or faintness. Head Injury Your child's examination shows no evidence of brain injury. The child can therefore be safely observed at home. Give clear liquids only for the first eight hours. Acetaminophen or ibuprofen can safely be given for pain. Follow the directions on the bottle. Do not give any medication that may alter her/his level of alertness. Limit activity for the first 24 hours -- bed rest is advisable at first. Several times during the first 24 hours, check the patient to see if the pupils are equal in size to each other, that the patient is easily arousable, and responds normally. Contact your doctor or go to the hospital if any of the following things occur: Persistent or projectile vomiting, a seizure, confusion, unequal pupil size, difficulty in arousing the patient, worsening or continued headache, or failure to improve as expected. Prescriptions: Cephalexin Monohydrate [Keflex 500 mg Capsule] 500 mg PO BID 7 Days #14 capsule Referrals: JOAN PRITCHARD PA [Primary Care Provider] - Follow up as needed
[2018-12-13 14:21] LABS: AMORPHOUS SEDIMENT,URINE TRACE /HPF; APPEARANCE,URINE CLOUDY; BILIRUBIN,URINE NEGATIVE (NEGATIVE); COLOR,URINE YELLOW; GLUCOSE, URINE NEGATIVE (NEGATIVE); KETONES,URINE NEGATIVE (NEGATIVE); LEUKOCYTE ESTERASE,URINE LARGE (NEGATIVE); NITRITE,URINE NEGATIVE (NEGATIVE); PROTEIN,URINE NEGATIVE (NEGATIVE); URINE SPECIFIC GRAVITY 1.019; UROBILINOGEN,URINE NEGATIVE mg/dL (<2.0)
[2018-12-13] MEDS ORDERED: ONDANSETRON HCL INJ/PF 4 MG/2 ML SDV IV ONE (14:41)
[2018-12-13] MEDS ORDERED: MORPHINE SULFATE 10 MG/ML INJ IV ONE (14:41)
[2018-12-13 14:42] LABS: ABSOLUTE BASOPHILS # (AUTO) 0.1 10^3/uL (0.0-0.2); ABSOLUTE EOSINOPHILS # (AUTO) 0.4 10^3/uL (0.0-0.6); ABSOLUTE LYMPHOCYTES (AUTO) 2.3 10^3/uL (0.5-4.7); ABSOLUTE MONOCYTES (AUTO) 0.6 10^3/uL (0.1-1.4); ABSOLUTE NEUT (AUTO) 5.8 10^3/uL (1.7-8.2); HEMATOCRIT 30.7 % (36.0-47.0); HEMOGLOBIN 9.6 g/dL (12.0-15.5); LYMPHOCYTES % (AUTO) 25.1 % (13-45); MEAN CORPUSCULAR HEMOGLOBIN 23.6 pg (27.0-33.4); MEAN CORPUSCULAR HGB CONC 31.4 g/dL (32.0-36.0); MEAN CORPUSCULAR VOLUME 75 fl (80-97); PLATELET COUNT 343 10^3/uL (150-450); RED BLOOD COUNT 4.08 10^6/uL (3.72-5.28); RED CELL DISTRIBUTION WIDTH 22.2 % (11.5-14.0); SEGMENTED NEUTROPHILS % (AUTO) 62.9 % (42-78); TOTAL CELLS COUNTED % (AUTO) 100 %; WHITE BLOOD COUNT 9.2 10^3/uL (4.0-10.5)
[2018-12-13 15:07] LABS: ALKALINE PHOSPHATASE 62 U/L (38-126); ANION GAP 9 (5-19); ASPARTATE AMINO TRANSFERASE 21 U/L (14-36); BLOOD UREA NITROGEN 13 mg/dL (7-20); CALCIUM 9.5 mg/dL (8.4-10.2); CARBON DIOXIDE 25 mmol/L (22-30); CHLORIDE 107 mmol/L (98-107); GLUCOSE 81 mg/dL (75-110); TOTAL PROTEIN 6.4 g/dL (6.3-8.2)
[2018-12-13 15:10] LABS: BILIRUBIN,TOTAL < 0.1 mg/dL (0.2-1.3)
[2018-12-13] MEDS ORDERED: NORMAL SALINE 500 ML IV ONE ×2 (15:32→17:15)
[2018-12-13] MEDS ORDERED: CEPHALEXIN 500 MG CAPSULE PO ONE (15:33)
--- NOTE | 2018-12-13 16:16 | RADIOLOGY REPORT (SQ) ---
EXAM DESCRIPTION: CT HEAD WITHOUT COMPLETED DATE/TIME: 12/13/2018 4:04 pm REASON FOR STUDY: headache, hx. shunt COMPARISON: 10/25/2018 TECHNIQUE: Axial images acquired through the brain without intravenous contrast. Images reviewed wi th bone, brain and subdural windows. Additional sagittal and coronal reconstructions were generated. Images stored on PACS. All CT scanners at this facility use dose modulation, iterative reconstruction, and/or weight based d osing when appropriate to reduce radiation dose to as low as reasonably achievable (ALARA). [facility]: Dose Right [facility]: CareDose [facility]: Dose Right [facility]: Teradose 4D [facility]: Smart Gear6 RADIATION DOSE: CT Rad equipment meets quality standard of care and radiation dose reduction techniq ues were employed. CTDIvol: 53.2 mGy. DLP: 1124 mGy-cm. mGy. LIMITATIONS: None. FINDINGS: VENTRICLES: Stable size and configuration of the lateral ventricles status post right fron artis approach shunt catheter placement. CEREBRUM: No masses. No hemorrhage. No midline shift. No evidence for acute infarction. Normal gra y/white matter differentiation. No areas of low density in the white matter. CEREBELLUM: No masses. No hemorrhage. No alteration of density. No evidence for acute infarction. EXTRAAXIAL SPACES: No fluid collections. No masses. ORBITS AND GLOBE: No intra- or extraconal masses. Normal contour of globe without masses. CALVARIUM: No fracture. PARANASAL SINUSES: No fluid or mucosal thickening. SOFT TISSUES: No mass or hematoma. OTHER: No other significant finding. IMPRESSION: No acute intracranial pathology. Stable size and configuration of the lateral ventricles status post right frontal approach shunt catheter placement. EVIDENCE OF ACUTE STROKE: NO. COMMENT: Quality ID # [id number]: Final reports with documentation of one or more dose reduction techniques (e.g., Automated exposure control, adjustment of the mA and/or kV according to patient size, use of iterative reconstruction technique) TECHNICAL DOCUMENTATION: JOB ID: [id number] [employer]- All Rights Reserved Reading location - IP/workstation name: [email or web address]
[2018-12-13 18:23] VITALS: BP 121/73
== END 2018-12-13 19:30 | disposition home or self-care (01) ==
LOC: ER 11:24
DX: R42 Dizziness and giddiness (principal); N39.0 Urinary tract infection, site not specified; R31.9 Hematuria, unspecified; S09.90XA Unspecified injury of head, initial encounter; W19.XXXA Unspecified fall, initial encounter; Y92.238 Other place in hospital as the place of occurrence of the external cause; D64.9 Anemia, unspecified; R51 Headache; R53.83 Other fatigue; R56.9 Unspecified convulsions; Z79.899 Other long term (current) drug therapy; E89.0 Postprocedural hypothyroidism; Z98.2 Presence of cerebrospinal fluid drainage device; J45.909 Unspecified asthma, uncomplicated; Z88.1 Allergy status to other antibiotic agents; Z91.018 Allergy to other foods; Z91.010 Allergy to peanuts; Z88.2 Allergy status to sulfonamides; Z86.69 Personal history of other diseases of the nervous system and sense organs
CPT/HCPCS: 36415; 87086; 82962; 85025; 81025; 87088; 80053; 81001; 70450; J2270; J2405; J7030; J7040; 99284

== ENCOUNTER 2019-02-14 11:01 | Emergency (ER) | payer BC ==
[2019-02-14 11:42] LABS: ABSOLUTE BASOPHILS # (AUTO) 0.1 10^3/uL (0.0-0.2); ABSOLUTE EOSINOPHILS # (AUTO) 0.5 10^3/uL (0.0-0.6); ABSOLUTE LYMPHOCYTES (AUTO) 1.7 10^3/uL (0.5-4.7); ABSOLUTE MONOCYTES (AUTO) 0.7 10^3/uL (0.1-1.4); EOSINOPHILS % (AUTO) 4.8 % (0-6); HEMATOCRIT 31.3 % (36.0-47.0); HEMOGLOBIN 9.8 g/dL (12.0-15.5); LYMPHOCYTES % (AUTO) 17.3 % (13-45); MEAN CORPUSCULAR HGB CONC 31.3 g/dL (32.0-36.0); MEAN CORPUSCULAR VOLUME 77 fl (80-97); MONOCYTES % (AUTO) 7.4 % (3-13); PLATELET COUNT 388 10^3/uL (150-450); RED BLOOD COUNT 4.09 10^6/uL (3.72-5.28); RED CELL DISTRIBUTION WIDTH 17.1 % (11.5-14.0); SEGMENTED NEUTROPHILS % (AUTO) 69.5 % (42-78); TOTAL CELLS COUNTED % (AUTO) 100 %
[2019-02-14 12:04] LABS: ALBUMIN 4.1 g/dL (3.5-5.0); ALKALINE PHOSPHATASE 61 U/L (38-126); ANION GAP 11 (5-19); ASPARTATE AMINO TRANSFERASE 15 U/L (14-36); BILIRUBIN,DIRECT 0.1 mg/dL (0.0-0.4); BILIRUBIN,TOTAL 0.2 mg/dL (0.2-1.3); BLOOD UREA NITROGEN 13 mg/dL (7-20); CALCIUM 9.7 mg/dL (8.4-10.2); CARBON DIOXIDE 22 mmol/L (22-30); CHLORIDE 110 mmol/L (98-107); GLUCOSE 71 mg/dL (75-110); POTASSIUM 3.7 mmol/L (3.6-5.0); TOTAL PROTEIN 7.1 g/dL (6.3-8.2)
[2019-02-14 12:06] LABS: ALCOHOL < 10 mg/dL (NONE DETECTED)
[2019-02-14] MEDS ORDERED: ONDANSETRON HCL INJ/PF 4 MG/2 ML SDV IV ONE ×2 (12:39→14:38)
[2019-02-14] MEDS ORDERED: NORMAL SALINE 1000 ML 1,000 ML IV ONE (12:40)
[2019-02-14] MEDS ORDERED: MORPHINE SULFATE 10 MG/ML INJ IV ONE ×2 (12:40→14:38)
--- NOTE | 2019-02-14 12:43 | ER Document Report ---
ED Seizure - General Chief Complaint: Probable Seizure Stated Complaint: POSSIBLE SEIZURE Time Seen by Provider: 02/14/19 12:30 Primary Care Provider: ABBY HORTA MD [NO LOCAL MD] - Follow up in 3-5 days JOAN PRITCHARD PA [Primary Care Provider] - Follow up in 3-5 days Notes: Patient is a 28-year-old female who presents the emergency department after having a seizure at her mental health office. She was sitting in the chair not doing anything in particular and ended up having a seizure. EMS arrived and she ended up having another seizure. Patient states that she is got pain on her right side, but it is the pain that she has always had. She denies any new weakness. Patient states that she does not remember the seizures. Patient has a past medical history of hydrocephalus with shunt, migraines, thyroid tumor with a partial thyroidectomy, and scoliosis. - Related Data Allergies/Adverse Reactions: ciprofloxacin [From Cipro] Allergy (Verified 12/13/18 11:25) ciprofloxacin HCl [From Cipro] Allergy (Verified 12/13/18 11:25) orange Allergy (Verified 12/13/18 11:25) peanut Allergy (Verified 12/13/18 11:25) Pork/Porcine Containing Products Allergy (Verified 12/13/18 11:25) Sulfa (Sulfonamide Antibiotics) Allergy (Verified 12/13/18 11:25) tomato Allergy (Verified 12/13/18 11:25) vancomycin [Vancomycin] Allergy (Verified 12/13/18 11:25) Past Medical History - Social History Smoking Status: Never Smoker Frequency of alcohol use: Rare Drug Abuse: None Family History: Reviewed & Not Pertinent, Other Patient has suicidal ideation: No Patient has homicidal ideation: No Pulmonary Medical History: Reports: Hx Asthma, Hx Pneumonia Neurological Medical History: Reports: Hx Migraine, Hx Seizures Endocrine Medical History: Reports: Hx Hypothyroidism Renal/ Medical History: Denies: Hx Peritoneal Dialysis Psychiatric Medical History: Reports: Hx Depression Past Surgical History: Reports: Hx Neurologic Surgery - Brain surgery with ELECTRO MECHANICAL DESIGNER shunt, Hx Orthopedic Surgery - bilaeral feet/knees x5, spine surgery, Hx Thyroid Surgery, Hx Tonsillectomy, Other - brain surgery- shunt, sinus, eye, ear surgery - Immunizations Hx Diphtheria, Pertussis, Tetanus Vaccination: Yes Review of Systems - Review of Systems Notes: REVIEW OF SYSTEMS: CONSTITUTIONAL : Denies recent illness. Denies recent unintentional weight loss. Denies fever, chills, or sweats. EENT: Denies eye, ear, throat, or mouth pain, discharge, or symptoms. Denies nasal or sinus congestion. CARDIOVASCULAR: Denies chest pain. RESPIRATORY: Denies shortness of breath, cough, congestion, difficulty breathing, or wheezing. GASTROINTESTINAL: See HPI. GENITOURINARY: Denies difficulty urinating, burning, blood in urine, urgency or frequency. MUSCULOSKELETAL: See HPI. SKIN: Denies rash, itchiness, or lesions HEMATOLOGIC : Denies easy bruising or bleeding. LYMPHATIC: Denies swollen, painful, enlarged glands. NEUROLOGICAL: See HPI. PSYCHIATRIC: Denies stress, anxiety, alteration in sleep patterns, or depression. All other systems reviewed and negative. Physical Exam - Vital signs Vitals: Temp Resp BP Pulse Ox 99.3 F 20 106/93 H 97 02/14/19 11:12 02/14/19 11:12 02/14/19 11:12 02/14/19 11:12 - Notes Notes: PHYSICAL EXAMINATION: GENERAL: Appears well, healthy, well-nourished, no acute distress. HEAD: Normocephalic, atraumatic. EYES: PERRL, conjunctiva normal, all extraocular movements intact, sclera nonicteric ENT: Moist mucous membranes. NECK: Supple, no noticeable swelling, redness, rash. Normal range of motion. LUNGS: Equal breath sounds bilaterally and clear to auscultation. No wheezes rales or rhonchi. CARDIOVASCULAR: S1-S2, regular rate, regular rhythm. Radial pulses 2+, normal. ABDOMEN: Normoactive bowel sounds. Soft, nontender, no guarding, no rebound tenderness, and no masses palpated. EXTREMITIES: Normal strength and range of motion, no pitting or edema. No cyanosis. NEUROLOGICAL: Moves all extremities upon command. Strength 5/5 in all ex tremities. PSYCH: Normal mood, normal affect. SKIN: Warm, dry. No rash, lesions, ulcerations noted. Normal skin turgor. Course - Re-evaluation Re-evalutation: 02/14/19 14:[address] on [address] looks normal. Patient does have a large amount of leukocytes in the urine. Patient states that when she has seizures, it is most likely due to urinary tract infection. I will start her on Keflex and send her urine for culture. She will follow-up with her primary care provider. I will give her a small dose of Sunflower to go home with. Patient states that whenever she has a seizure she ends up getting pain on her right side. I have very low suspicion for any life-threatening etiology at this time. Follow-up precautions were given. Verbal discharge instructions were given to the patient. They verbalized understanding. They are stable for discharge. - Vital Signs Vital signs: Temp Pulse Resp BP Pulse Ox 98.9 F 17 111/58 L 99 02/14/19 15:38 02/14/19 15:38 02/14/19 15:38 02/14/19 15:38 - Laboratory Result Diagrams: 02/14/19 11:30 02/14/19 11:30 Laboratory results interpreted by me: 02/14/19 02/14/19 02/14/19 11:30 11:30 13:13 Hgb 9.8 L Hct 31.3 L MCV 77 L MCH 24.0 L MCHC 31.3 L RDW 17.1 H Chloride 110 H Glucose 71 L Urine Protein 100 H Urine Blood LARGE H Ur Leukocyte Esterase LARGE H Discharge - Discharge Clinical Impression: Seizure Urinary tract infection Qualifiers: Urinary tract infection type: site unspecified Hematuria presence: with hematuria Qualified Code(s): N39.0 - Urinary tract infection, site not specified Condition: Stable Disposition: HOME, SELF-CARE Instructions: Cephalexin ([facility]), Urinary Tract Infection ([facility]) Additional Instructions: You are seen today in the emergency department for a seizure. You have a urinary tract infection causing your seizure. Please take your antibiotics as prescribed. You are also given Zofran, medication for nausea. Take as prescribed. You are also being sent home with Sunflower, medication to help with pain. You can take 1 tablet every 4-6 hours as needed for pain. Please follow- up with your primary care provider and your neurologist in regards to this visit. Prescriptions: Cephalexin [Keflex] 500 mg PO BID #14 capsule Ondansetron [Zofran Odt 4 mg Tablet] 1 - 2 tab PO Q4H PRN #15 tab.rapdis PRN Reason: For Nausea/Vomiting Forms: Return to Work Referrals: JOAN PRITCHARD PA [Primary Care Provider] - Follow up in 3-5 days ABBY HORTA MD [NO LOCAL MD] - Follow up in 3-5 days
[2019-02-14 13:47] LABS: URINE AMPHETAMINES SCREEN NEGATIVE; URINE BARBITURATES SCREEN NEGATIVE; URINE BENZODIAZEPINES SCREEN NEGATIVE; URINE COCAINE SCREEN NEGATIVE; URINE MARIJUANA (THC) SCREEN NEGATIVE; URINE METHADONE SCREEN NEGATIVE; URINE PHENCYCLIDINE SCREEN NEGATIVE
[2019-02-14 13:59] LABS: APPEARANCE,URINE CLOUDY; BILIRUBIN,URINE NEGATIVE (NEGATIVE); COLOR,URINE YELLOW; GLUCOSE, URINE NEGATIVE (NEGATIVE); KETONES,URINE NEGATIVE (NEGATIVE); LEUKOCYTE ESTERASE,URINE LARGE (NEGATIVE); NITRITE,URINE NEGATIVE (NEGATIVE); PROTEIN,URINE 100 mg/dL (NEGATIVE); URINE SPECIFIC GRAVITY 1.018; UROBILINOGEN,URINE NEGATIVE mg/dL (<2.0)
--- NOTE | 2019-02-14 14:28 | RADIOLOGY REPORT (SQ) ---
EXAM DESCRIPTION: CT HEAD WITHOUT COMPLETED DATE/TIME: 02/14/2019 2:11 pm REASON FOR STUDY: seizure; eval shunt COMPARISON: CT of the head without contrast from 12/13/2018. TECHNIQUE: Axial images acquired through the brain without intravenous contrast. Images reviewed wi th bone, brain and subdural windows. Additional sagittal and coronal reconstructions were generated. Images stored on PACS. All CT scanners at this facility use dose modulation, iterative reconstruction, and/or weight based d osing when appropriate to reduce radiation dose to as low as reasonably achievable (ALARA). [facility]: Dose Right [facility]: CareDose [facility]: Dose Right [facility]: Teradose 4D [facility]: [employer] RADIATION DOSE: CT Rad equipment meets quality standard of care and radiation dose reduction techniq ues were employed. CTDIvol: 53.2 mGy. DLP: 1044 mGy-cm. mGy. LIMITATIONS: None. FINDINGS: There is a right frontal approach OIL PROSPECTING OBSERVER shunt catheter in place ; the tip of the catheter ter minates near the foramen of Monro. The caliber the ventricles is unchanged from 12/14/2015. There is no acute intracranial hemorrhage, vascular territorial infarct, extra-axial fluid collection, mass e ffect or midline shift. There is no effacement of the cerebral sulci or basal subarachnoid cisterns. The cornelius-white matter differentiation is preserved. The orbits and globes are intact. There is a mucous retention cyst within the left sphenoid sinus. There is no paranasal sinus air-fluid level. There is no fracture of the calvarium. IMPRESSION: Right frontal approach OIL PROSPECTING OBSERVER shunt catheter in place ; the tip of the catheter terminates n ear the foramen of Monro. The caliber of the ventricles is unchanged and there is no acute intracran ial abnormality. EVIDENCE OF ACUTE STROKE: NO. COMMENT: Quality ID # [id number]: Final reports with documentation of one or more dose reduction techniques (e.g., Automated exposure control, adjustment of the mA and/or kV according to patient size, use of iterative reconstruction technique) TECHNICAL DOCUMENTATION: JOB ID: [id number] [employer]- All Rights Reserved Reading location - IP/workstation name: [email or web address]-
[2019-02-14] MEDS ORDERED: HYDROCODONE/ACETAMINOPHEN 5-325 MG (6 TAB/ER DISP) PO PRN (14:38)
[2019-02-14] MEDS ORDERED: CEPHALEXIN 500 MG CAPSULE PO ONE (14:38)
[2019-02-14 15:52] VITALS: BP 111/58
== END 2019-02-14 15:52 | disposition home or self-care (01) ==
LOC: ER 11:01
DX: R56.9 Unspecified convulsions (principal); N39.0 Urinary tract infection, site not specified; R31.9 Hematuria, unspecified; Z98.2 Presence of cerebrospinal fluid drainage device; J45.909 Unspecified asthma, uncomplicated; Z88.1 Allergy status to other antibiotic agents; Z91.018 Allergy to other foods; Z91.010 Allergy to peanuts; Z88.2 Allergy status to sulfonamides
CPT/HCPCS: 36415; 80307 ×2; 83735; 84703; 85025; 80053; 81001; 70450; J2270; J2405; J7030; 96361; 96374; 96375; 96376; 99285

== ENCOUNTER 2019-02-20 15:49 | Emergency (ER) | payer BC ==
[2019-02-20] MEDS ORDERED: DOXYCYCLINE HYCLATE 100 MG TABLET PO ONE (16:31)
[2019-02-20] MEDS ORDERED: CYCLOBENZAPRINE HCL 10 MG TABLET PO ONE (16:31)
[2019-02-20] MEDS ORDERED: HYDROCODONE/ACETAMINOPHEN 5-325 MG TABLET PO ONE (16:31)
--- NOTE | 2019-02-20 16:44 | ER Document Report ---
ED General - General Chief Complaint: Abscess Stated Complaint: POSSIBLE INFECTION/LEFT ARM PAIN Time Seen by Provider: 02/20/19 16:24 Primary Care Provider: JOAN PRITCHARD PA [Primary Care Provider] - Follow up in 3-5 days TRAVEL OUTSIDE OF THE [place] IN LAST 30 DAYS: No - HPI Notes: 28-year-old female with history of seizure disorders and mental health disorder to the emergency department via EMS with complaints of "skin infection under the left arm with radiating pain into the left shoulder" that began 4 days ago. Patient states that 4 days ago she noticed an abscess to her left axilla and she was able to press on it and drained pus from it. She states that it seemed to be getting better it was a little bit sore but was overall improved. She states that this morning however she noticed that the area was starting to swell again and it randomly "popped" and drained some more. She states that after it drained she started to have radiation of pain from her axilla up into her left shoulder and into the left trapezius muscle. She states that she took Tylenol and Motrin with no relief and her pain was significant enough that she felt like she needed to call EMS. She states she feels like she needs a IM injection of pain medicine. She denies any fevers or chills. She states she takes Lamictal for her seizure disorder. States that her last seizure was 1 week ago and she does not drive. - Related Data Allergies/Adverse Reactions: ciprofloxacin [From Cipro] Allergy (Verified 02/20/19 16:24) ciprofloxacin HCl [From Cipro] Allergy (Verified 02/20/19 16:24) orange Allergy (Verified 02/20/19 16:24) peanut Allergy (Verified 02/20/19 16:24) Pork/Porcine Containing Products Allergy (Verified 02/20/19 16:24) Sulfa (Sulfonamide Antibiotics) Allergy (Verified 02/20/19 16:24) tomato Allergy (Verified 02/20/19 16:24) vancomycin [Vancomycin] Allergy (Verified 02/20/19 16:24) Past Medical History - General Information source: Patient - Social History Smoking Status: Never Smoker Chew tobacco use (# tins/day): No Frequency of alcohol use: None Drug Abuse: None Family History: Reviewed & Not Pertinent, Other Patient has suicidal ideation: No Patient has homicidal ideation: No Pulmonary Medical History: Reports: Hx Asthma, Hx Pneumonia Neurological Medical History: Reports: Hx Migraine, Hx Seizures Endocrine Medical History: Reports: Hx Hypothyroidism Renal/ Medical History: Denies: Hx Peritoneal Dialysis Psychiatric Medical History: Reports: Hx Depression Past Surgical History: Reports: Hx Neurologic Surgery - Brain surgery 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, Hx Orthopedic Surgery - bilaeral feet/knees x5, spine surgery, Hx Thyroid Surgery, Hx Tonsillectomy, Other - brain surgery- shunt, sinus, eye, ear surgery - Immunizations Hx Diphtheria, Pertussis, Tetanus Vaccination: Yes Review of Systems - Review of Systems Constitutional: denies: Chills, Fever EENT: No symptoms reported Cardiovascular: denies: Chest pain, Palpitations, Dizziness, Lightheaded Respiratory: denies: Cough, Short of breath Gastrointestinal: denies: Abdominal pain, Diarrhea, Nausea Musculoskeletal: See HPI, Muscle pain Skin: See HPI, Rash Hematologic/Lymphatic: No symptoms reported Neurological/Psychological: No symptoms reported -: Yes All other systems reviewed and negative Physical Exam - Vital signs Vitals: Temp Pulse Resp BP Pulse Ox 98.3 F 106 H 20 133/73 H 97 02/20/19 16:16 02/20/19 16:16 02/20/19 16:16 02/20/19 16:16 02/20/19 16:16 Interpretation: Normal - General General appearance: Appears well, Alert In distress: None - HEENT Head: Normocephalic, Atraumatic Eyes: Normal Pupils: PERRL - Respiratory Respiratory status: No respiratory distress Chest status: Nontender Breath sounds: Normal. No: Productive cough, Rales, Rhonchi, Wheezing Chest palpation: Normal - Cardiovascular Rhythm: Regular Heart sounds: Normal auscultation Murmur: No - Abdominal Inspection: Normal Distension: No distension Bowel sounds: Normal Tenderness: Nontender Organomegaly: No organomegaly - Back Back: Normal, Nontender - Extremities Notes: There is tenderness to palpation over the left trapezius muscle with noted muscle spasm. There are no skin findings. - Neurological Neuro grossly intact: Yes Cognition: Normal Orientation: AAOx4 Lyndon Coma Scale Eye Opening: Spontaneous Lyndon Coma Scale Verbal: Oriented Bessie Coma Scale Motor: Obeys Commands Lyndon Coma Scale Total: 15 Speech: Normal Cranial nerves: Normal. No: Facial palsy, Forehead sparing, Gaze palsy, Sensory deficit, Tongue deviation Cerebellar coordination: Normal. No: Gait ataxia Motor strength normal: LUE, RUE, LLE, RLE Additional motor exam normals: Equal beef killer. No: Pronator drift Sensory: Normal - Psychological Associated symptoms: Anxious, Irritable, Labile - Skin Skin Temperature: Warm Skin Moisture: Dry Skin Color: Normal Skin irregularity: other - There is a small nonindurated left axillary abscess with no fluctuance. Abscess is approximately 2 cm in diameter. There is no surrounding induration, erythema, streaking lymphangitis. See extremities for further discussion on left shoulder pain. Course - Re-evaluation Re-evalutation: 02/20/19 Patient was being moved into room for medication by PCT. She has moved to bed 32 and when she arrived she told the PCT that she needed to lay down on the ground because she felt like she was could have a seizure. Apparently the patient stood from the wheelchair took off her shoes and laid down on the ground. From there she shook on the ground for approximately 30 seconds. She then sat up and got into the recliner in the room. She was able to speak to the PCT fully without any difficulty and was alert and oriented x4. I went and saw her after this was reported to me and indeed the patient is alert and oriented x4 and is not in any sort of postictal state. I discussed this patient with Dr. Lan and we agree will observe her for now and not obtain any labs or further imaging. Patient did initially ask for IM injection of pain medicines and I advised that it was safer for her to have oral medications. She was given prior to this episode of shaking Flexeril, [place], doxycycline. She remains fully neurologically intact after this episode of shaking. Low suspicion that this was a true seizure likely more pseudoseizure in nature. Rounded on patient and she is done well. She has been sitting in a recliner for some time without any further episodes of "seizure-like activity". She states medicines did not help her. We had a discussion about appropriate next treatment for her and will give one dose of Ativan by mouth and one dose of pain meds orally. We have made the plan that her grandmother will come and get the patient. Impression: Abscess that appears to be doing well and does not need I and D. Will place on Doxy. Hx of seizure disorder with an episode of "shaking" today in the ER. given the lack of post ictal state and her ability to communicate with staff directly after the episode, doubt true seizure. Nonetheless reiterated the fact that pt should not drive. Will have her follow with PCP without fail. urged to return if worse. - Vital Signs Vital signs: Temp Pulse Resp BP Pulse Ox 98.2 F 98 16 132/70 H 100 02/20/19 19:59 02/20/19 19:59 02/20/19 19:59 02/20/19 19:59 02/20/19 19:59 Discharge - Discharge Clinical Impression: Abscess of axilla, left, Seizure disorder, Strain of left trapezius muscle Condition: Stable Disposition: HOME, SELF-CARE Instructions: Abscess ([facility]) Additional Instructions: COMPLETE ALL ANTIBIOTICS. TAKE PAIN MEDS PRESCRIBED. RETURN IF WORSE. NO DRIVING BECAUSE OF YOUR SEIZURE DISORDER. FOLLOW UP WITH PRIMARY CARE. Prescriptions: Doxycycline Hyclate 100 mg PO BID #20 capsule Oxycodone HCl/Acetaminophen [Percocet 5-325 mg Tablet] 1 tab PO Q6H PRN #9 tablet PRN Reason: Referrals: JOAN PRITCHARD PA [Primary Care Provider] - Follow up in 3-5 days
[2019-02-20] MEDS ORDERED: LORAZEPAM 1 MG TABLET PO ONE (17:47)
[2019-02-20] MEDS ORDERED: OXYCODONE-ACETAMINOPHEN 5-325 MG TABLET PO ONE (18:23)
[2019-02-20 20:01] VITALS: BP 132/70
== END 2019-02-20 20:01 | disposition home or self-care (01) ==
LOC: ER 15:49
DX: L02.412 Cutaneous abscess of left axilla (principal); S29.012A Strain of muscle and tendon of back wall of thorax, initial encounter; X58.XXXA Exposure to other specified factors, initial encounter; M25.512 Pain in left shoulder; M62.830 Muscle spasm of back; J45.909 Unspecified asthma, uncomplicated; R21 Rash and other nonspecific skin eruption; G40.909 Epilepsy, unspecified, not intractable, without status epilepticus; Z79.899 Other long term (current) drug therapy; Z88.1 Allergy status to other antibiotic agents; Z91.018 Allergy to other foods; Z91.010 Allergy to peanuts; Z88.2 Allergy status to sulfonamides
CPT/HCPCS: 99283

== ENCOUNTER 2020-01-02 11:43 | Emergency (ER) | payer BC ==
--- NOTE | 2020-01-02 12:05 | ER Document Report ---
ED Medical Screen (RME) - General Chief Complaint: Weakness Stated Complaint: WEAKNESS,CHILLS,LIGHTHEADED Time Seen by Provider: 01/02/20 12:01 Primary Care Provider: JOAN PRITCHARD PA [Primary Care Provider] - Follow up as needed Mode of Arrival: Ambulatory Information source: Patient Notes: 29-year-old female presents to ED for nausea vomiting spotting and right sh oulder pain. She states she is about 4 to 6 weeks . She states she took a home test that was positive she has had some spotting and she is having nausea and vomiting. She states when she vomits she does have abdominal pain. She is alert oriented respirations regular nonlabored speaking in full sentences. She states her gallbladder was removed in September. We will get labs and ultrasound and follow-up with another provider. I have greeted and performed a rapid initial assessment of this patient. A comprehensive ED assessment and evaluation of the patient, analysis of test results and completion of medical decision making process will be conducted by an additional ED providers. TRAVEL OUTSIDE OF THE [place] IN LAST 30 DAYS: No - Related Data Allergies/Adverse Reactions: ciprofloxacin [From Cipro] Allergy (Verified 02/20/19 16:24) ciprofloxacin HCl [From Cipro] Allergy (Verified 02/20/19 16:24) orange Allergy (Verified 02/20/19 16:24) peanut Allergy (Verified 02/20/19 16:24) Pork/Porcine Containing Products Allergy (Verified 02/20/19 16:24) Sulfa (Sulfonamide Antibiotics) Allergy (Verified 02/20/19 16:24) tomato Allergy (Verified 02/20/19 16:24) vancomycin [Vancomycin] Allergy (Verified 02/20/19 16:24) Past Medical History Pulmonary Medical History: Reports: Hx Asthma, Hx Pneumonia Neurological Medical History: Reports: Hx Migraine, Hx Seizures Endocrine Medical History: Reports: Hx Hypothyroidism Renal/ Medical History: Denies: Hx Peritoneal Dialysis Psychiatric Medical History: Reports: Hx Depression Past Surgical History: Reports: Hx Neurologic Surgery - Brain surgery with [employer]GER [place] shunt, Hx Orthopedic Surgery - bilaeral feet/knees x5, spine surgery, Hx Thyroid Surgery, Hx Tonsillectomy, Other - brain surgery- shunt, sinus, eye, ear surgery - Immunizations Hx Diphtheria, Pertussis, Tetanus Vaccination: Yes Physical Exam - Vital signs Vitals: Temp Pulse Resp BP Pulse Ox 98.7 F 112 H 16 125/67 100 01/02/20 11:50 01/02/20 11:50 01/02/20 11:50 01/02/20 11:50 01/02/20 11:50 Course - Vital Signs Vital signs: Temp Pulse Resp BP Pulse Ox 98.7 F 112 H 16 125/67 100 01/02/20 11:50 01/02/20 11:50 01/02/20 11:50 01/02/20 11:50 01/02/20 11:50 Doctor's Discharge - Discharge Referrals: JOAN PRITCHARD PA [Primary Care Provider] - Follow up as needed
--- NOTE | 2020-01-02 12:18 | ER Document Report ---
ED Medical Screen (RME) - General Chief Complaint: General Weakness Stated Complaint: WEAKNESS,CHILLS,LIGHTHEADED Time Seen by Provider: 01/02/20 12:01 Primary Care Provider: JOAN PRITCHARD PA [Primary Care Provider] - Follow up as needed Mode of Arrival: Ambulatory Information source: Patient Notes: 29-year-old female presented to ED for weakness lightheadedness fatigue headache pale states she feels just like she did last summer when she needed a blood transfusion. She is tachycardic at 112. She does have pale eye and oral membranes. She states she did not have any bleeding last time she had anemia. She does have a history of anemia thyroidectomy seizures migraines endometriosis scoliosis anxiety depression. She states her primary care doctor told her she looked very anemic. She is alert oriented respirations regular nonlabored at this time. She states she does feel very short of breath. I have greeted and performed a rapid initial assessment of this patient. A comprehensive ED assessment and evaluation of the patient, analysis of test results and completion of medical decision making process will be conducted by an additional ED providers. TRAVEL OUTSIDE OF THE [place] IN LAST 30 DAYS: No - Related Data Allergies/Adverse Reactions: ciprofloxacin [From Cipro] Allergy (Verified 01/02/20 12:06) ciprofloxacin HCl [From Cipro] Allergy (Verified 01/02/20 12:06) orange Allergy (Verified 01/02/20 12:06) peanut Allergy (Verified 01/02/20 12:06) Pork/Porcine Containing Products Allergy (Verified 01/02/20 12:06) Sulfa (Sulfonamide Antibiotics) Allergy (Verified 01/02/20 12:06) tomato Allergy (Verified 01/02/20 12:06) vancomycin [Vancomycin] Allergy (Verified 01/02/20 12:06) Home Medications: synthroid, buspar, lamictal Past Medical History - Social History Chew tobacco use (# tins/day): No Frequency of alcohol use: None Drug Abuse: None Pulmonary Medical History: Reports: Hx Asthma, Hx Pneumonia Neurological Medical History: Reports: Hx Migraine, Hx Seizures Endocrine Medical History: Reports: Hx Hypothyroidism Renal/ Medical History: Denies: Hx Peritoneal Dialysis Psychiatric Medical History: Reports: Hx Depression Past Surgical History: Reports: Hx Neurologic Surgery - 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, Hx Orthopedic Surgery - bilaeral feet/knees x5, spine surgery, Hx Thyroid Surgery, Hx Tonsillectomy, Other - brain surgery- shunt, sinus, eye, ear s urgery - Immunizations Hx Diphtheria, Pertussis, Tetanus Vaccination: Yes Physical Exam - Vital signs Vitals: Temp Pulse Resp BP Pulse Ox 98.7 F 112 H 16 125/67 100 01/02/20 11:50 01/02/20 11:50 01/02/20 11:50 01/02/20 11:50 01/02/20 11:50 Course - Vital Signs Vital signs: Temp Pulse Resp BP Pulse Ox 98.7 F 112 H 16 125/67 100 01/02/20 11:50 01/02/20 11:50 01/02/20 11:50 01/02/20 11:50 01/02/20 11:50 Doctor's Discharge - Discharge Referrals: JOAN PRITCHARD PA [Primary Care Provider] - Follow up as needed
[2020-01-02 13:03] LABS: ABSOLUTE BASOPHILS # (AUTO) 0.1 10^3/uL (0.0-0.2); ABSOLUTE EOSINOPHILS # (AUTO) 0.4 10^3/uL (0.0-0.6); ABSOLUTE LYMPHOCYTES (AUTO) 2.6 10^3/uL (0.5-4.7); ABSOLUTE MONOCYTES (AUTO) 0.8 10^3/uL (0.1-1.4); ABSOLUTE NEUT (AUTO) 7.6 10^3/uL (1.7-8.2); BASOPHILS % (AUTO) 0.8 % (0-2); EOSINOPHILS % (AUTO) 3.2 % (0-6); HEMATOCRIT 21.6 % (36.0-47.0); MEAN CORPUSCULAR HEMOGLOBIN 20.2 pg (27.0-33.4); MEAN CORPUSCULAR VOLUME 67 fl (80-97); MONOCYTES % (AUTO) 6.8 % (3-13); PLATELET COUNT 475 10^3/uL (150-450); RED BLOOD COUNT 3.21 10^6/uL (3.72-5.28); RED CELL DISTRIBUTION WIDTH 19.7 % (11.5-14.0); SEGMENTED NEUTROPHILS % (AUTO) 66.2 % (42-78); TOTAL CELLS COUNTED % (AUTO) 100 %; WHITE BLOOD COUNT 11.4 10^3/uL (4.0-10.5)
[2020-01-02 13:05] LABS: APPEARANCE,URINE CLOUDY; BILIRUBIN,URINE NEGATIVE (NEGATIVE); CALCIUM OXALATE CRYSTALS,URINE MODERATE /HPF; COLOR,URINE YELLOW; GLUCOSE, URINE NEGATIVE (NEGATIVE); HEMOGLOBIN 6.5 g/dL (12.0-15.5); KETONES,URINE NEGATIVE (NEGATIVE); PROTEIN,URINE 100 mg/dL (NEGATIVE); URINE SPECIFIC GRAVITY 1.028
[2020-01-02 13:26] LABS: ALBUMIN 4.4 g/dL (3.5-5.0); ALKALINE PHOSPHATASE 73 U/L (38-126); ANION GAP 12 (5-19); ASPARTATE AMINO TRANSFERASE 20 U/L (14-36); BILIRUBIN,DIRECT 0.1 mg/dL (0.0-0.4); BILIRUBIN,TOTAL 0.2 mg/dL (0.2-1.3); BLOOD UREA NITROGEN 11 mg/dL (7-20); CARBON DIOXIDE 19 mmol/L (22-30); CHLORIDE 105 mmol/L (98-107); GLUCOSE 72 mg/dL (75-110); POTASSIUM 3.4 mmol/L (3.6-5.0); TOTAL PROTEIN 7.2 g/dL (6.3-8.2)
[2020-01-02 13:43] LABS: FREE T3 3.34 pg/mL (2.77-5.27); FREE T4 (FREE THYROXINE) 1.32 ng/dL (0.78-2.19)
[2020-01-02] MEDS ORDERED: NORMAL SALINE 250 ML IV PRN ×2 (13:45)
--- NOTE | 2020-01-02 14:07 | ER Document Report ---
ED General - General Mode of Arrival: Ambulatory TRAVEL OUTSIDE OF THE [place] IN LAST 30 DAYS: No - Related Data Home Medications: synthroid, buspar, lamictal <HARISH LOPEZ - Last Filed: 01/02/20 19:52> <СВЕТЛАНА VOGEL - Last Filed: 01/02/20 22:45> - General Chief Complaint: General Weakness Stated Complaint: WEAKNESS,CHILLS,LIGHTHEADED Time Seen by Provider: 01/02/20 12:01 Primary Care Provider: ALYSSA GARCÍA MD [ACTIVE STAFF] - 01/05/20 ABDOUL ROBLES MD [ACTIVE STAFF] - 01/05/20 JOAN PRITCHARD PA [Primary Care Provider] - 01/05/20 - HPI Notes: Patient is a 29-year-old female with a history of anemia, seizures, hypothyroidism, hydrocephaly, and endometriosis who presents with general weakness. Patient states she started feeling unwell 3 and half weeks ago and her symptoms worsened 3 days ago. She reports lightheadedness, dizziness, fatigue, palpitations, and shortness of breath. Patient went to her primary care today for her symptoms and was told to come to the ED for immediate blood work since blood work at their office would not result until Sunday. She denies vaginal bleeding, nausea, vomiting, abdominal pain, and chest pain. Patient's last seizure was about a month ago and she usually has about 4 seizures a year. She currently takes Lamictal 200 mg twice daily. Patient has a history of a blood transfusion done a year ago, she states her hemoglobin was around 7.5 and she received 2 units of blood. She states her symptoms are similar to when she needed a transfusion last year. (HARISH LOPEZ) - Related Data Allergies/Adverse Reactions: ciprofloxacin [From Cipro] Allergy (Verified 01/02/20 12:06) ciprofloxacin HCl [From Cipro] Allergy (Verified 01/02/20 12:06) orange Allergy (Verified 01/02/20 12:06) peanut Allergy (Verified 01/02/20 12:06) Pork/Porcine Containing Products Allergy (Verified 01/02/20 12:06) Sulfa (Sulfonamide Antibiotics) Allergy (Verified 01/02/20 12:06) tomato Allergy (Verified 01/02/20 12:06) vancomycin [Vancomycin] Allergy (Verified 01/02/20 12:06) Past Medical History - General Information source: Patient - Social History Smoking Status: Never Smoker Chew tobacco use (# tins/day): No Frequency of alcohol use: None Drug Abuse: None Family History: Reviewed & Not Pertinent, Other Pulmonary Medical History: Reports: Hx Asthma, Hx Pneumonia Neurological Medical History: Reports: Hx Migraine, Hx Seizures Endocrine Medical History: Reports: Hx Hypothyroidism Renal/ Medical History: Denies: Hx Peritoneal Dialysis Psychiatric Medical History: Reports: Hx Depression Past Surgical History: Reports: Hx Neurologic Surgery - Brain surgery with INFRASTRUCTURE TECHNICIAN shunt, Hx Orthopedic Surgery - bilaeral feet/knees x5, spine surgery, Hx Thyroid Surgery, Hx Tonsillectomy, Other - brain surgery- shunt, sinus, eye, ear surgery - Immunizations Hx Diphtheria, Pertussis, Tetanus Vaccination: Yes <HARISH LOPEZ - Last Filed: 01/02/20 19:52> Review of Systems - Review of Systems Constitutional: See HPI EENT: No symptoms reported Cardiovascular: See HPI Respiratory: See HPI Gastrointestinal: No symptoms reported Genitourinary: No symptoms reported Female Genitourinary: No symptoms reported Musculoskeletal: No symptoms reported Skin: No symptoms reported Hematologic/Lymphatic: See HPI Neurological/Psychological: See HPI <JESSICAVONNIE WilliamHARISH M - Last Filed: 01/02/20 19:52> Physical Exam <HARISH LOPEZ - Last Filed: 01/02/20 19:52> - Vital signs Vitals: Temp Pulse Resp BP Pulse Ox 98.7 F 112 H 16 125/67 100 01/02/20 11:50 01/02/20 11:50 01/02/20 11:50 01/02/20 11:50 01/02/20 11:50 - Notes Notes: PHYSICAL EXAMINATION: VITALS: Tachycardic and hypotensive. GENERAL: Patient is laying in the bed and appears ill. She is in no acute distress. HEAD: Atraumatic, normocephalic. EYES: Pupils equal round and reactive to light, extraocular movements intact, sclera anicteric, conjunctiva pale ENT: nares patent, oropharynx clear without exudates. Moist mucous membranes. Lips pale in color. NECK: Normal range of motion, supple without lymphadenopathy. LUNGS: Breath sounds clear to auscultation bilaterally and equal. No wheezes rales or rhonchi. HEART: Tachycardia with regular rhythm without murmurs. ABDOMEN: Soft, nontender, normoactive bowel sounds. No guarding, no rebound. No masses appreciated. + left CVA tenderness. EXTREMITIES: Normal range of motion, no pitting or edema. No cyanosis. NEUROLOGICAL: No focal neurological deficits. Moves all extremities spontaneously and on command. PSYCH: Normal mood, normal affect. SKIN: Pallor, no rashes or lesions noted. (HARISH LOPEZ) Course - Laboratory Result Diagrams: 01/02/20 12:45 01/02/20 12:45 - Diagnostic Test Radiology reviewed: Image reviewed, Reports reviewed <HARISH LOPEZ - Last Filed: 01/02/20 19:52> - Laboratory Result Diagrams: 01/02/20 21:55 01/02/20 12:45 <СВЕТЛАНА VOGEL - Last Filed: 01/02/20 22:45> - Re-evaluation Re-evalutation: Patient is a 29-year-old female with a history of anemia and hypothyroidism who presents for general weakness, shortness of breath, and palpitations. Patient is tachycardic and hypotensive. On exam, pallor with pale conjunctiva and mucous membranes. Notified by lab that patient's hemoglobin is 6.5. Transfusion protocol started and 2 units of packed RBCs ordered. WBC minimally elevated at 11.4, hematocrit 21.6 and MCV 67. UA shows protein 100, moderate blood, large leukocyte esterase and moderate calcium oxalate crystals. CMP unremarkable. Patient reexamined due to her abnormal UA and she has significant CVA tenderness in the left side. She denies dysuria and hematuria, will order a urine culture. I discussed with both Dr. Barrera and Dr. Bruner concerning the patient and they both recommended CT abdomen and pelvis without contrast. CT abdomen and pelvis shows intermediate density hepatic lesions, largest within the right lobe measuring 5.2 x 2.3 cm, possibly complex cyst or hemangioma. No evidence of nephrolithiasis or obstructive uropathy. No other evidence of acute intra-abdominal/pelvic process. 01/02/20 16:18 Patient reassessed and she is feeling a little bit better as the first unit of blood is being transfused. She denies any fever, rash, or itching. Low suspicion for transfusion reaction and will increase rate of transfusion from 125 mL/hr to 175 mL/hr.Discussed CT results with patient. Patient is aware of the liver lesions as she was told that she has a hemangioma. TSH 9.71 with normal Free T3 and T4. Patient has known hypothyroidism and currently takes levothyroxine. We discussed the importance of following up with her PCP concerning possible dosing changes of her levothyroxine. 01/02/20 19:33 Patient reassessed and she is feeling better. She is currently receiving her second unit of blood. Patient is requesting a repeat CBC after transfusion is complete. If hemoglobin has increased appropriately and patient continues to feel better, I believe it would be safe to discharge the patient home with prompt follow-up with her primary care provider. I discussed this plan with patient and she is in agreement. (HARISH LOPEZ) 01/02/20 22:08 Patient has finished her second unit of PRBCs. I reassessed her and she states that she still does not feel 100%. Spoke with Dr. Simental, my attending, he recommends fecal Stool test. Patient states that she did not want this done and she just wanted to check what her hemoglobin was. Laboratory re-draw labs. 01/02/20 22:39 Patient's hemoglobin is now 8.0 and hematocrit is 26.3. Spoke with the patient in regards to close follow-up with hematology. Patient has a large amount of leukocytes in her urine and [address] patient on Keflex. Patient states that she has history of asymptomatic urinary tract infections in the past. She is in agreement with this plan. Follow-up precautions were given. Verbal discharge instructions were given to the patient. They verbalized understanding. They are stable for discharge. (СВЕТЛАНА VOGEL) - Vital Signs Vital signs: Temp Pulse Resp BP Pulse Ox 98.7 F 87 20 125/68 100 01/02/20 21:01 01/02/20 18:30 01/02/20 21:31 01/02/20 21:31 01/02/20 21:31 - Laboratory Laboratory results interpreted by me: 01/02/20 01/02/20 01/02/20 12:45 12:45 12:45 WBC 11.4 H RBC 3.21 L Hgb 6.5 L Hct 21.6 L MCV 67 L MCH 20.2 L MCHC 30.0 L RDW 19.7 H Plt Count 475 H Sodium 135.8 L Potassium 3.4 L Carbon Dioxide 19 L Glucose 72 L TSH Urine Protein 100 H Urine Blood MODERATE H Urine Urobilinogen 2.0 H Leukocyte Esterase Rfl LARGE H Crossmatch 01/02/20 01/02/20 01/02/20 12:45 13:25 21:55 WBC 11.2 H RBC 3.71 L Hgb 8.0 L Hct 26.3 L MCV 71 L D MCH 21.5 L MCHC 30.4 L RDW 22.8 H Plt Count Sodium Potassium Carbon Dioxide Glucose TSH 9.71 H Urine Protein Urine Blood Urine Urobilinogen Leukocyte Esterase Rfl Crossmatch See Detail - Diagnostic Test Radiology results interpreted by me: Abdomen/Pelvis CT 01/02/20 14:00 IMPRESSION: 1. Intermediate density hepatic lesions, largest within the right lobe measuring 5.2 x 2.3 cm, possibly complex cyst or hemangioma. Multiphase dedicated CT or MRI recommend for further characterization. 2. No evidence of nephrolithiasis or obstructive uropathy. No other evidence of acute intra-abdominal/pelvic process. 3. Incidental findings as above. (HARISH LOPEZ) Discharge <HARISH LOPEZ - Last Filed: 01/02/20 19:52> <СВЕТЛАНА VOGEL - Last Filed: 01/02/20 22:45> - Discharge Clinical Impression: Microcytic anemia, Weakness, Hypothyroidism (acquired), Palpitations UTI (urinary tract infection) Qualifiers: Urinary tract infection type: acute cystitis Hematuria presence: with hematuria Qualified Code(s): N30.01 - Acute cystitis with hematuria Condition: Stable Disposition: HOME, SELF-CARE Additional Instructions: Your TSH was elevated at 9.71. Please follow up with your primary care provider as a change in your medication dosage may be needed. Anemia You have been found to have a significant anemia (a lower than normal amount of red blood cells). Anemia can be due to iron deficiency, vitamin deficiency, abnormal bleeding, or internal diseases. Usually, further tests are necessary to find the exact cause of the anemia. The most common cause of anemia is iron deficiency, often brought on by blood loss. This can be treated with iron supplements. If this appears to be the most likely cause, iron tablets may be prescribed even before all tests are complete. Contact the doctor at once if you note black or tarry-looking stools, bloody vomiting, shortness of breath, chest pain, or faintness. Please follow-up with 1 of the laser beam cutter in regards to this visit. Your urine shows findings consistent with a urinary tract infection. Please take all the antibiotics as directed even if your symptoms have improved. Please follow-up with your primary care physician as needed. Return to emergency room if you develop fever >101F, persistent vomiting, become lethargi c, have severe pain in your sides, or any other symptoms that are concerning to you. Prescriptions: Cephalexin [Keflex] 500 mg PO BID #14 capsule Referrals: JOAN PRITCHARD PA [Primary Care Provider] - 01/05/20 ABDOUL ROBLES MD [ACTIVE STAFF] - 01/05/20 ALYSSA GARCÍA MD [ACTIVE STAFF] - 01/05/20
--- NOTE | 2020-01-02 15:42 | RADIOLOGY REPORT (SQ) ---
EXAM DESCRIPTION: CT ABD/PELVIS NO ORAL OR IV IMAGES COMPLETED DATE/TIME: 01/02/2020 3:00 pm REASON FOR STUDY: cva tenderness COMPARISON: None. TECHNIQUE: CT scan of the abdomen and pelvis performed without intravenous or oral contrast. Images reviewed with lung, soft tissue, and bone windows. Reconstructed coronal and sagittal MPR images revi ewed. All images stored on PACS. All CT scanners at this facility use dose modulation, iterative reconstruction, and/or weight based d osing when appropriate to reduce radiation dose to as low as reasonably achievable (ALARA). [facility]: Dose Right [facility]: CareDose [facility]: Dose Right [facility]: Teradose 4D [facility]: Smart [place] RADIATION DOSE: CT Rad equipment meets quality standard of care and radiation dose reduction techniq ues were employed. CTDIvol: 17.6 mGy. DLP: 875 mGy-cm.mGy. LIMITATIONS: None. FINDINGS: LOWER CHEST: No significant findings. No nodules or infiltrates. NON-CONTRASTED LIVER, SPLEEN, ADRENALS: Evaluation limited by lack of IV contrast. Intermediate dens ity irregularly shaped lesion within the right hepatic lobe measuring 5.2 x 2.8 cm (series 3, image 2 2). Additional site for lesion measuring 17 mm with intermediate internal attenuation. Hypodense he patic dome cyst measuring 3.9 cm. No additional identified significant masses. These were not ident ified on CT dated 09/07/2013. PANCREAS: No masses. No peripancreatic inflammatory changes. GALLBLADDER: No identified stones by CT criteria. No inflammatory changes to suggest cholecystitis. RIGHT KIDNEY AND URETER: No suspicious masses. Assessment limited by lack of IV contrast. No signif icant calcifications. No hydronephrosis or hydroureter. LEFT KIDNEY AND URETER: No suspicious masses. Assessment limited by lack of IV contrast. No signifi cant calcifications. No hydronephrosis or hydroureter. AORTA AND RETROPERITONEUM: No aneurysm. No retroperitoneal masses or adenopathy. BOWEL AND PERITONEAL CAVITY: No evidence of intestinal obstruction. No focal bowel wall thickening. Small volume free fluid within the pelvis, likely related to ventriculoperitoneal shunt. No free in traperitoneal gas. APPENDIX: Not clearly identified. PELVIS, BLADDER, AND ABDOMINAL WALL:Decompressed urinary bladder. Trace pelvic free fluid. BONES: No acute bony abnormality. No suspicious osseous lesions. Punctate sclerotic focus within th e left ilium, likely bone island. Additional sclerotic focus within the T10 vertebral body, stable c ompared to 2014. OTHER: No other significant finding. IMPRESSION: 1. Intermediate density hepatic lesions, largest within the right lobe measuring 5.2 x 2.3 cm, possibly complex cyst or hemangioma. Multiphase dedicated CT or MRI recommend for further ch aracterization. 2. No evidence of nephrolithiasis or obstructive uropathy. No other evidence of acute intra-abdomin al/pelvic process. 3. Incidental findings as above. COMMENT: Quality ID # [id number]: Final reports with documentation of one or more dose reduction techniques (e.g., Automated exposure control, adjustment of the mA and/or kV according to patient size, use of iterative reconstruction technique) TECHNICAL DOCUMENTATION: JOB ID: [id number] 2010 [employer]- All Rights Reserved Reading location - IP/workstation name: [email or web address]
[2020-01-02 22:15] LABS: HEMATOCRIT 26.3 % (36.0-47.0); MEAN CORPUSCULAR HEMOGLOBIN 21.5 pg (27.0-33.4); MEAN CORPUSCULAR HGB CONC 30.4 g/dL (32.0-36.0); PLATELET COUNT 382 10^3/uL (150-450); RED BLOOD COUNT 3.71 10^6/uL (3.72-5.28); RED CELL DISTRIBUTION WIDTH 22.8 % (11.5-14.0); WHITE BLOOD COUNT 11.2 10^3/uL (4.0-10.5)
[2020-01-02 22:21] LABS: MEAN CORPUSCULAR VOLUME 71 fl (80-97)
[2020-01-02] MEDS ORDERED: CEPHALEXIN 500 MG CAPSULE PO ONE (22:45)
[2020-01-02 23:23] VITALS: BP 113/61
== END 2020-01-02 23:23 | disposition home or self-care (01) ==
LOC: ER 11:43
DX: N30.01 Acute cystitis with hematuria (principal); E03.9 Hypothyroidism, unspecified; D50.9 Iron deficiency anemia, unspecified; R00.2 Palpitations; R53.1 Weakness; R42 Dizziness and giddiness; R11.2 Nausea with vomiting, unspecified; N93.8 Other specified abnormal uterine and vaginal bleeding; M25.511 Pain in right shoulder; R53.83 Other fatigue
CPT/HCPCS: 99284; 86900; 86901; 36415; 87086; 84439; 36430; 86850; 84702; 84443; 85025; 87088; 80053; 81001; 84481; 86920; 74176; P9016

== ENCOUNTER 2020-01-11 11:58 | Emergency (ER) | payer BC ==
--- NOTE | 2020-01-11 13:03 | RADIOLOGY REPORT (SQ) ---
EXAM DESCRIPTION: CLAVICLE LEFT IMAGES COMPLETED DATE/TIME: 01/11/2020 12:31 pm REASON FOR STUDY: fall/swelling COMPARISON: None. NUMBER OF VIEWS: Two views. TECHNIQUE: Frontal and angled images were acquired of the left clavicle. LIMITATIONS: None. FINDINGS: MINERALIZATION: Normal. BONES: No acute fracture or dislocation. No worrisome bone lesions. SOFT TISSUES: No obvious swelling or foreign body. OTHER: No other significant finding. IMPRESSION: NEGATIVE STUDY OF THE LEFT CLAVICLE. NO RADIOGRAPHIC EVIDENCE OF ACUTE INJURY. TECHNICAL DOCUMENTATION: JOB ID: [id number] 2010 [employer]- All Rights Reserved Reading location - IP/workstation name: [email or web address]
[2020-01-11 13:08] LABS: ABSOLUTE BASOPHILS # (AUTO) 0.1 10^3/uL (0.0-0.2); ABSOLUTE EOSINOPHILS # (AUTO) 0.2 10^3/uL (0.0-0.6); ABSOLUTE LYMPHOCYTES (AUTO) 1.3 10^3/uL (0.5-4.7); ABSOLUTE MONOCYTES (AUTO) 0.5 10^3/uL (0.1-1.4); ABSOLUTE NEUT (AUTO) 5.9 10^3/uL (1.7-8.2); EOSINOPHILS % (AUTO) 2.3 % (0-6); HEMATOCRIT 29.2 % (36.0-47.0); HEMOGLOBIN 8.9 g/dL (12.0-15.5); LYMPHOCYTES % (AUTO) 16.6 % (13-45); MEAN CORPUSCULAR HEMOGLOBIN 21.4 pg (27.0-33.4); MEAN CORPUSCULAR HGB CONC 30.5 g/dL (32.0-36.0); MEAN CORPUSCULAR VOLUME 70 fl (80-97); MONOCYTES % (AUTO) 6.5 % (3-13); PLATELET COUNT 463 10^3/uL (150-450); RED BLOOD COUNT 4.16 10^6/uL (3.72-5.28); RED CELL DISTRIBUTION WIDTH 23.4 % (11.5-14.0); SEGMENTED NEUTROPHILS % (AUTO) 73.6 % (42-78); TOTAL CELLS COUNTED % (AUTO) 100 %; WHITE BLOOD COUNT 8.1 10^3/uL (4.0-10.5)
[2020-01-11 13:10] LABS: ALBUMIN 4.3 g/dL (3.5-5.0); ALKALINE PHOSPHATASE 70 U/L (38-126); ANION GAP 10 (5-19); ASPARTATE AMINO TRANSFERASE 18 U/L (14-36); BILIRUBIN,DIRECT 0.1 mg/dL (0.0-0.4); BILIRUBIN,TOTAL 0.2 mg/dL (0.2-1.3); BLOOD UREA NITROGEN 17 mg/dL (7-20); CALCIUM 9.6 mg/dL (8.4-10.2); CARBON DIOXIDE 22 mmol/L (22-30); CHLORIDE 108 mmol/L (98-107); CREATINE KINASE 33 U/L (30-135); GLUCOSE 96 mg/dL (75-110); TOTAL PROTEIN 7.1 g/dL (6.3-8.2)
[2020-01-11 13:26] LABS: CREATINE KINASE MB < 0.22 ng/mL (<4.55); TROPONIN I < 0.012 ng/mL
[2020-01-11] MEDS ORDERED: ONDANSETRON HCL INJ/PF 4 MG/2 ML SDV IV ONE ×2 (13:36→16:20)
[2020-01-11] MEDS ORDERED: MORPHINE SULFATE 10 MG/ML INJ IV ONE ×2 (13:36→16:20)
[2020-01-11] MEDS ORDERED: NORMAL SALINE 1000 ML 1,000 ML IV ONE (13:36)
--- NOTE | 2020-01-11 15:44 | RADIOLOGY REPORT (SQ) ---
EXAM DESCRIPTION: CT HEAD WITHOUT IMAGES COMPLETED DATE/TIME: 01/11/2020 3:28 pm REASON FOR STUDY: syncope COMPARISON: 02/14/2019 TECHNIQUE: Axial images acquired through the brain without intravenous contrast. Images reviewed wit h bone, brain and subdural windows. Images stored on PACS. All CT scanners at this facility use dose modulation, iterative reconstruction, and/or weight based d osing when appropriate to reduce radiation dose to as low as reasonably achievable (ALARA). [facility]: Dose Right [facility]: CareDose [facility]: Dose Right [facility]: Teradose 4D [facility]: Smart [employer] RADIATION DOSE: CT Rad equipment meets quality standard of care and radiation dose reduction techniq ues were employed. CTDIvol: 53.2 mGy. DLP: 991 mGy-cm.. LIMITATIONS: None. FINDINGS: VENTRICLES: Stable size and contour. Right anterior ventriculostomy catheter appears in s imilar position. CEREBRUM: No masses. No hemorrhage. No midline shift. Age appropriate white matter. No evidence for a cute infarction. CEREBELLUM: No masses. No hemorrhage. No alteration of density. No evidence for acute infarction. EXTRA-AXIAL SPACES: No fluid collections. ORBITS AND GLOBE: No intra- or extraconal masses. Normal contour of globe without masses. CALVARIUM: No fracture. PARANASAL SINUSES: No fluid or mucosal thickening. SOFT TISSUES: No mass or hematoma. OTHER: No other significant finding. IMPRESSION: NO ACUTE INTRACRANIAL FINDINGS. EVIDENCE OF ACUTE STROKE: NO. TECHNICAL DOCUMENTATION: JOB ID: [id number] [place]-72 Quality ID # 436: Final reports with documentation of one or more dose reduction techniques (e.g., Au tomated exposure control, adjustment of the mA and/or kV according to patient size, use of iterative reconstruction technique) 2010 [employer]- All Rights Reserved Reading location - IP/workstation name: [email or web address]
--- NOTE | 2020-01-11 15:46 | RADIOLOGY REPORT (SQ) ---
EXAM DESCRIPTION: CT CERVICAL SPINE WITHOUT IMAGES COMPLETED DATE/TIME: 01/11/2020 3:28 pm REASON FOR STUDY: trauma/neck pain COMPARISON: 10/25/2018 TECHNIQUE: Axial images acquired through the cervical spine without intravenous contrast. Images re viewed with lung, soft tissue and bone windows. Reconstructed coronal and sagittal MPR images review ed. Images stored on PACS. All CT scanners at this facility use dose modulation, iterative reconstruction, and/or weight based d osing when appropriate to reduce radiation dose to as low as reasonably achievable (ALARA). [facility]: Dose Right [facility]: CareDose [facility]: Dose Right [facility]: Teradose 4D [facility]: Smart [email or web address] RADIATION DOSE: CT Rad equipment meets quality standard of care and radiation dose reduction techniq ues were employed. CTDIvol: 17.6 mGy. DLP: 349 mGy-cm. mGy. LIMITATIONS: None. FINDINGS: ALIGNMENT: Anatomic. MINERALIZATION: Normal. VERTEBRAL BODIES: No fractures or dislocation. DISCS: No significant disc disease. FACETS, LATERAL MASSES, POSTERIOR ELEMENTS: No fractures. No dislocation. No acute findings. HARDWARE: None in the spine. VISUALIZED RIBS: No fractures. LUNG APICES AND SOFT TISSUES: No significant or acute findings. OTHER: No other significant finding. IMPRESSION: NO ACUTE OR SIGNIFICANT FINDINGS IN THE CERVICAL SPINE. TECHNICAL DOCUMENTATION: JOB ID: [id number] [place]-72 Quality ID # 436: Final reports with documentation of one or more dose reduction techniques (e.g., Au tomated exposure control, adjustment of the mA and/or kV according to patient size, use of iterative reconstruction technique) 2010 [employer]- All Rights Reserved Reading location - IP/workstation name: [email or web address]
--- NOTE | 2020-01-11 15:58 | RADIOLOGY REPORT (SQ) ---
EXAM DESCRIPTION: CT CHEST WITH; CT ABD/PELVIS WITH IV ONLY IMAGES COMPLETED DATE/TIME: 01/11/2020 3:28 pm REASON FOR STUDY: trauma/left chest/thoracic spine; trauma/llq abd and lumbar spine jose c CONTRAST TYPE AND DOSE: contrast/concentration: Isovue mmol/ml; Total Contrast Delivered: 100.0 ml; Total Saline Delivered: 53.7 ml RENAL FUNCTION: GFR > 60. COMPARISON: 10/26/2018 TECHNIQUE: CT scan of the chest performed using helical scanning technique with dynamic intravenous contrast injection. Images reviewed with lung, soft tissue and bone windows. Reconstructed coronal a nd sagittal MPR images reviewed. All images stored on PACS. All CT scanners at this facility use dose modulation, iterative reconstruction, and/or weight based d osing when appropriate to reduce radiation dose to as low as reasonably achievable (ALARA). [facility]: Dose Right [facility]: CareDose [facility]: Dose Right [facility]: Teradose 4D [facility]: Smart [employer] RADIATION DOSE: CT Rad equipment meets quality standard of care and radiation dose reduction techniq ues were employed. CTDIvol: 17.9 - 20.9 mGy. DLP: 2387 mGy-cm.. LIMITATIONS: None. FINDINGS: AXILLAE: No adenopathy. CHEST WALL: No masses. No subcutaneous air. LUNGS: No nodules or masses. No pneumothorax. No infiltrates. PLEURA: No effusions. No calcifications. THYROID: No masses or significant asymmetry. HILAR AND MEDIASTINAL STRUCTURES: No identified masses or abnormal nodes. AORTA AND GREAT VESSELS: No aneurysm. No dissection. PULMONARY ARTERIES: No identified pulmonary emboli. Study not optimized for the pulmonary arteries. HEART: No pericardial effusion. HARDWARE AND LIFELINES: None. BONES: No acute findings. Long segment thoracolumbar posterior fusion hardware. OTHER: No other significant finding. IMPRESSION: No acute findings. COMPARISON: None. RADIATION DOSE: CT Rad equipment meets quality standard of care and radiation dose reduction techniq ues were employed. CTDIvol: 17.9 - 20.9 mGy. DLP: 2387 mGy-cm.mGy. TECHNIQUE: CT scan of the abdomen and pelvis performed with intravenous and oral contrast using anyi tejal scanning technique with dynamic intravenous contrast injection. Images reviewed with lung, soft tissue and bone windows. Reconstructed coronal and sagittal MPR images reviewed. Delayed images for evaluation of the urinary system also acquired and evaluated. All images stored on PACS. All CT scanners at this facility use dose modulation, iterative reconstruction, and/or weight based d osing when appropriate to reduce radiation dose to as low as reasonably achievable (ALARA). [facility]: Dose Right [facility]: SureCare [facility]: Dose Right [facility]: Teradose 4D [facility]: LABOMAR FINDINGS: LIVER: Normal size. Scattered hemangiomas. No dilated ducts. SPLEEN: Normal size. No focal lesions. PANCREAS: No masses. No significant calcifications. No adjacent inflammation or peripancreatic flui d collections. Pancreatic duct not dilated. GALLBLADDER: No identified stones by CT criteria. No inflammatory changes to suggest cholecystitis. ADRENAL GLANDS: No significant masses or asymmetry. RIGHT KIDNEY AND URETER: No solid masses. No significant calcification. No hydronephrosis or hydroure ter. LEFT KIDNEY AND URETER: No solid masses. No significant calcification. No hydronephrosis or hydrouret er. AORTA AND VESSELS: No aneurysm. No dissection. Renal arteries, SMA, celiac without stenosis. RETROPERITONEUM: No retroperitoneal adenopathy, hemorrhage or masses. LARGE AND SMALL BOWEL: No dilatation. No masses. No wall thickening. APPENDIX: Normal. ABDOMINAL WALL: No hernia or masses. PERITONEAL CAVITY: No free air. No free fluid. No peritoneal implants or masses. PELVIS: Small amount of free fluid free fluid. Normal bladder. BONES: No acute findings.Long segment thoracolumbar posterior fusion hardware. OTHER: Right APPAREL STOCK CHECKER shunt catheter is present, tip in the left deep pelvis. IMPRESSION: No acute findings. TECHNICAL DOCUMENTATION: JOB ID: [id number] [place]-72 Quality ID # [id number]: Final reports with documentation of one or more dose reduction techniques (e.g., Au tomated exposure control, adjustment of the mA and/or kV according to patient size, use of iterative reconstruction technique) 2010 [employer]- All Rights Reserved Reading location - IP/workstation name: [employer]
--- NOTE | 2020-01-11 15:58 | RADIOLOGY REPORT (SQ) ---
EXAM DESCRIPTION: CT CHEST WITH; CT ABD/PELVIS WITH IV ONLY IMAGES COMPLETED DATE/TIME: 01/11/2020 3:28 pm REASON FOR STUDY: trauma/left chest/thoracic spine; trauma/llq abd and lumbar spine jose c CONTRAST TYPE AND DOSE: contrast/concentration: Isovue mmol/ml; Total Contrast Delivered: 100.0 ml; Total Saline Delivered: 53.7 ml RENAL FUNCTION: GFR > 60. COMPARISON: 10/26/2018 TECHNIQUE: CT scan of the chest performed using helical scanning technique with dynamic intravenous contrast injection. Images reviewed with lung, soft tissue and bone windows. Reconstructed coronal a nd sagittal MPR images reviewed. All images stored on PACS. All CT scanners at this facility use dose modulation, iterative reconstruction, and/or weight based d osing when appropriate to reduce radiation dose to as low as reasonably achievable (ALARA). [facility]: Dose Right [facility]: CareDose [facility]: Dose Right [facility]: Teradose 4D [facility]: Smart Formspring RADIATION DOSE: CT Rad equipment meets quality standard of care and radiation dose reduction techniq ues were employed. CTDIvol: 17.9 - 20.9 mGy. DLP: 2387 mGy-cm.. LIMITATIONS: None. FINDINGS: AXILLAE: No adenopathy. CHEST WALL: No masses. No subcutaneous air. LUNGS: No nodules or masses. No pneumothorax. No infiltrates. PLEURA: No effusions. No calcifications. THYROID: No masses or significant asymmetry. HILAR AND MEDIASTINAL STRUCTURES: No identified masses or abnormal nodes. AORTA AND GREAT VESSELS: No aneurysm. No dissection. PULMONARY ARTERIES: No identified pulmonary emboli. Study not optimized for the pulmonary arteries. HEART: No pericardial effusion. HARDWARE AND LIFELINES: None. BONES: No acute findings. Long segment thoracolumbar posterior fusion hardware. OTHER: No other significant finding. IMPRESSION: No acute findings. COMPARISON: None. RADIATION DOSE: CT Rad equipment meets quality standard of care and radiation dose reduction techniq ues were employed. CTDIvol: 17.9 - 20.9 mGy. DLP: 2387 mGy-cm.mGy. TECHNIQUE: CT scan of the abdomen and pelvis performed with intravenous and oral contrast using anyi tejal scanning technique with dynamic intravenous contrast injection. Images reviewed with lung, soft tissue and bone windows. Reconstructed coronal and sagittal MPR images reviewed. Delayed images for evaluation of the urinary system also acquired and evaluated. All images stored on PACS. All CT scanners at this facility use dose modulation, iterative reconstruction, and/or weight based d osing when appropriate to reduce radiation dose to as low as reasonably achievable (ALARA). [facility]: Dose Right [facility]: SureCare [facility]: Dose Right [facility]: Teradose 4D [facility]: Accelerize [employer] FINDINGS: LIVER: Normal size. Scattered hemangiomas. No dilated ducts. SPLEEN: Normal size. No focal lesions. PANCREAS: No masses. No significant calcifications. No adjacent inflammation or peripancreatic flui d collections. Pancreatic duct not dilated. GALLBLADDER: No identified stones by CT criteria. No inflammatory changes to suggest cholecystitis. ADRENAL GLANDS: No significant masses or asymmetry. RIGHT KIDNEY AND URETER: No solid masses. No significant calcification. No hydronephrosis or hydroure ter. LEFT KIDNEY AND URETER: No solid masses. No significant calcification. No hydronephrosis or hydrouret er. AORTA AND VESSELS: No aneurysm. No dissection. Renal arteries, SMA, celiac without stenosis. RETROPERITONEUM: No retroperitoneal adenopathy, hemorrhage or masses. LARGE AND SMALL BOWEL: No dilatation. No masses. No wall thickening. APPENDIX: Normal. ABDOMINAL WALL: No hernia or masses. PERITONEAL CAVITY: No free air. No free fluid. No peritoneal implants or masses. PELVIS: Small amount of free fluid free fluid. Normal bladder. BONES: No acute findings.Long segment thoracolumbar posterior fusion hardware. OTHER: Right RIGGER SUPERVISOR shunt catheter is present, tip in the left deep pelvis. IMPRESSION: No acute findings. TECHNICAL DOCUMENTATION: JOB ID: [id number] [place]-[id number] Quality ID # [id number]: Final reports with documentation of one or more dose reduction techniques (e.g., Au tomated exposure control, adjustment of the mA and/or kV according to patient size, use of iterative reconstruction technique) 2010 [employer]- All Rights Reserved Reading location - IP/workstation name: [email or web address]
[2020-01-11 15:59] LABS: APPEARANCE,URINE SLIGHTLY-CLOUDY; BILIRUBIN,URINE NEGATIVE (NEGATIVE); COLOR,URINE YELLOW; GLUCOSE, URINE NEGATIVE (NEGATIVE); KETONES,URINE NEGATIVE (NEGATIVE); LEUKOCYTE ESTERASE,URINE LARGE (NEGATIVE); NITRITE,URINE NEGATIVE (NEGATIVE); PROTEIN,URINE 100 mg/dL (NEGATIVE); UROBILINOGEN,URINE NEGATIVE mg/dL (<2.0)
--- NOTE | 2020-01-11 16:23 | ER Document Report ---
Entered by ROHIT ZUNIGA SCRIBE 01/11/20 4686 Acting as scribe for:GENEVIEVE MORALES MD ED General - General Chief Complaint: Syncope Stated Complaint: FALL,BODY PAIN Primary Care Provider: JOAN PRITCHARD PA [Primary Care Provider] - Follow up as needed Mode of Arrival: Medic Information source: Patient Notes: This 29 year old female patient with a history of anemia and seizures presents to the ED today via EMS for evaluation following a syncopal episode that oc curred just prior to arrival. Patients states that she was in the shower when the episode occurred and notes positive LOC of unknown duration, but notes that she was still wet from the shower when she came to, so she doesn't believe it was for very long; family members were by her side and deny any seizure-like activity. She reports pain to the left side of her head, neck, shoulder, collar bone, and back. She mentions that she is currently on her menstrual cycle and denies any abdominal pain; however, when the LLQ is palpated, she winces in pain. Patient states that her last transfusion was x1.5 weeks ago and her supervisor pumping is Dr. Reis. PCP is DEION Farah in [place]. TRAVEL OUTSIDE OF THE [place] IN LAST 30 DAYS: No - Related Data Allergies/Adverse Reactions: ciprofloxacin [From Cipro] Allergy (Verified 01/02/20 12:06) ciprofloxacin HCl [From Cipro] Allergy (Verified 01/02/20 12:06) orange Allergy (Verified 01/02/20 12:06) peanut Allergy (Verified 01/02/20 12:06) Pork/Porcine Containing Products Allergy (Verified 01/02/20 12:06) Sulfa (Sulfonamide Antibiotics) Allergy (Verified 01/02/20 12:06) tomato Allergy (Verified 01/02/20 12:06) vancomycin [Vancomycin] Allergy (Verified 01/02/20 12:06) Past Medical History - General Information source: Patient, [facility] Records - Social History Smoking Status: Unknown if Ever Smoked Cigarette use (# per day): No Chew tobacco use (# tins/day): No Smoking Education Provided: No Frequency of alcohol use: None Drug Abuse: None Lives with: Family Family History: Reviewed & Not Pertinent Patient has suicidal ideation: No Patient has homicidal ideation: No Pulmonary Medical History: Reports: Hx Asthma, Hx Pneumonia Neurological Medical History: Reports: Hx Migraine, Hx Seizures Endocrine Medical History: Reports: Hx Hypothyroidism Psychiatric Medical History: Reports: Hx Anxiety, Hx Depression Past Surgical History: Reports: Hx Neurologic Surgery - Brain surgery with CARDIOLOGY TECHNICIAN shunt, Hx Orthopedic Surgery - bilaeral feet/knees x5, spine surgery, Hx Thyroid Surgery, Hx Tonsillectomy, Other - brain surgery- shunt, sinus, eye, ear surgery - Immunizations Hx Diphtheria, Pertussis, Tetanus Vaccination: Yes Review of Systems - Review of Systems Constitutional: No symptoms reported EENT: No symptoms reported Cardiovascular: See HPI, Syncope Respiratory: No symptoms reported Gastrointestinal: See HPI. denies: Abdominal pain Genitourinary: No symptoms reported Female Genitourinary: See HPI Musculoskeletal: Back pain, Joint pain, Muscle pain, Neck pain Skin: No symptoms reported Hematologic/Lymphatic: See HPI, Anemia, Easy bruising Neurological/Psychological: See HPI, Lost consciousness. denies: Seizure -: Yes All other systems reviewed and negative Physical Exam - Vital signs Vitals: Temp Pulse Resp BP Pulse Ox 98.6 F 99 14 129/85 H 99 01/11/20 12:08 01/11/20 12:08 01/11/20 12:08 01/11/20 12:08 01/11/20 12:08 - General General appearance: Alert In distress: None - HEENT Head: Normocephalic, Atraumatic Eyes: Normal Pupils: PERRL Neck: Other - Left-sided neck tenderness to palpation - Respiratory Respiratory status: No respiratory distress Breath sounds: Normal Chest palpation: Tender - Anterior chest wall tenderness to palpation on the left side - Cardiovascular Rhythm: Regular Heart sounds: Normal auscultation, S1 appreciated, S2 appreciated Murmur: No Friction rub: No Gallop: None auscultated - Abdominal Inspection: Normal Distension: No distension Bowel sounds: Normal Tenderness: Tender - LLQ tenderness to palpation Organomegaly: No organomegaly - Back Back: Tender - Midline lumbar-thoracic tenderness to palation. No: Deformity/step-off - Extremities General upper extremity: Normal inspection General lower extremity: Normal inspection. No: Edema - Neurological Neuro grossly intact: Yes Orientation: AAOx4 Lyndon Coma Scale Eye Opening: Spontaneous [place] Coma Scale Verbal: Oriented [place] Coma Scale Motor: Obeys Commands [place] Coma Scale Total: 15 - Psychological Associated symptoms: Normal affect, Normal mood - Skin Skin Temperature: Warm Skin Moisture: Dry Skin Color: Normal Course - Re-evaluation Re-evalutation: 01/11/20 16:14 Patient ambulatory in the ED appearing to be feeling better at this time. - Vital Signs Vital signs: Temp Pulse Resp BP Pulse Ox 98.3 F 90 14 114/72 98 01/11/20 17:20 01/11/20 15:41 01/11/20 17:01 01/11/20 17:01 01/11/20 17:01 01/11/20 16:14 Vital signs are stable. - Laboratory Result Diagrams: 01/11/20 12:34 01/11/20 12:34 Laboratory results interpreted by me: 01/11/20 01/11/20 01/11/20 12:34 12:34 15:33 Hgb 8.9 L Hct 29.2 L MCV 70 L MCH 21.4 L MCHC 30.5 L RDW 23.4 H Plt Count 463 H Chloride 108 H Urine Protein 100 H Urine Blood LARGE H Ur Leukocyte Esterase LARGE H 01/11/20 16:15 Patient is on her menstrual cycle and therefore the urine has a large amount of blood leukocyte esterase positive. Patient's hemoglobin is 8.9 with a hematocrit of 29. This is an improvement over what patient told me that her most recent hemoglobin after transfusion last week was 8.5. - Diagnostic Test Radiology reviewed: Image reviewed, Reports reviewed Radiology results interpreted by me: 01/11/20 16:00 Clavicle X-Ray 01/11/20 00:00 IMPRESSION: NEGATIVE STUDY OF THE LEFT CLAVICLE. NO RADIOGRAPHIC EVIDENCE OF ACUTE INJURY. Head CT 01/11/20 13:30 IMPRESSION: NO ACUTE INTRACRANIAL FINDINGS. EVIDENCE OF ACUTE STROKE: NO. Cervical Spine CT 01/11/20 13:33 IMPRESSION: NO ACUTE OR SIGNIFICANT FINDINGS IN THE CERVICAL SPINE. Chest CT 01/11/20 13:33 IMPRESSION: No acute findings. IMPRESSION: No acute findings. Abdomen/Pelvis CT 01/11/20 13:34 IMPRESSION: No acute findings. IMPRESSION: No acute findings. 01/11/20 16:15 During the ED visit today patient had imaging done including a clavicle x-ray showing negative acute injury of the clavicle. Head CT showed no acute intracranial findings and no evidence for stroke cervical spine CT shows normal cervical spine without any significant findings. Chest CT no acute findings abdominal CT no acute findings. - EKG Interpretation by Me Additional EKG results interpreted by me: 01/11/20 16:16 Twelve-lead EKG shows a normal sinus rhythm rate of 92 normal axis MD QRS and QT intervals within normal range. Probable left atrial abnormality noted. No acute ST changes no evidence for ME. Discharge - Discharge Clinical Impression: Accidental fall, Multiple somatic complaints, History of epilepsy, History of anemia Condition: Stable Disposition: HOME, SELF-CARE Additional Instructions: Fainting Your evaluation has resulted in a diagnosis of a fainting spell (syncope). Fainting results when the blood pressure falls suddenly due to emotional dist ress, pain, dehydration, bleeding, or medication effects. Fainting is usually NOT due to a health problem in younger people. Older persons often faint due to a medical condition. Your exam has revealed no signs of a serious problem as a cause for your fainting. Usually, no further tests are required. However, if further workup has been recommended, it's important that you follow up as instructed. Should you feel lightheaded or "about to faint," you should sit or lie down as quickly as possible. The episode will usually pass. Additional faints or near-faints will require further evaluation to determine if there's a treatable cause. Call the doctor at once if you develop shortness of breath, constant faintness, severe weakness, chest pain, black or tarry stool, or any other new or unusual symptoms.Anemia You have been found to have a significant anemia (a lower than normal amount of red blood cells). Anemia can be due to iron deficiency, vitamin deficiency, abnormal bleeding, or internal diseases. Usually, further tests are necessary to find the exact cause of the anemia. The most common cause of anemia is iron deficiency, often brought on by blood loss. This can be treated with iron supplements. If this appears to be the most likely cause, iron tablets may be prescribed even before all tests are complete. Contact the doctor at once if you note black or tarry-looking stools, bloody vomiting, shortness of breath, chest pain, or faintness.Seizure You have had a seizure. Seizure disorders (epilepsy) of one sort or anot her affect about one out of 50 people. The seizure occurs because of abnormal electrical activity in the brain. Seizures may be due to drugs and alcohol, strokes, brain injury, or infection. In the most common form of epilepsy, no cause can be found. You will require further evaluation to determine the cause of your seizure, and to determine whether anti-seizure medication is required. This follow-up testing is important, so please call us if you encounter problems with scheduling of te sts or appointments. YOU SHOULD NOT DRIVE until released to do so by your physician. The law re quires that seizures be reported to the [place] driver's license bureau--a seizure while driving could be catastrophic. Call the doctor if seizures recur, or if you develop new symptoms such as fever, severe headache, stiff neck, confusion or increasing sleepiness, weakness or numbness, or visual problems. There are no new prescriptions at this time continue your same medications as you take to help control your seizure disorder and treatment of your anemia. Recommend taking Tylenol ibuprofen as needed for pain. Referrals: OJAN PRITCHARD PA [Primary Care Provider] - Follow up as needed I personally performed the services described in the documentation, reviewed and edited the documentation which was dictated to the scribe in my presence, and it accurately records my words and actions.
[2020-01-11 16:27] LABS: URINE AMPHETAMINES SCREEN NEGATIVE; URINE BARBITURATES SCREEN NEGATIVE; URINE BENZODIAZEPINES SCREEN NEGATIVE; URINE COCAINE SCREEN NEGATIVE; URINE MARIJUANA (THC) SCREEN NEGATIVE; URINE METHADONE SCREEN NEGATIVE; URINE PHENCYCLIDINE SCREEN NEGATIVE
[2020-01-11 17:16] VITALS: BP 114/72
--- NOTE | 2020-01-11 23:07 | EKG REPORT ---
SEVERITY:- BORDERLINE ECG - SINUS RHYTHM PROBABLE LEFT ATRIAL ABNORMALITY : Confirmed by: Adilene Tenorio MD 11-Jan-2020 23:06:21
== END 2020-01-11 17:20 | disposition home or self-care (01) ==
LOC: ER 11:58
DX: R51.9 Headache, unspecified (principal); M54.2 Cervicalgia; M25.519 Pain in unspecified shoulder; M89.8X1 Other specified disorders of bone, shoulder; M54.9 Dorsalgia, unspecified; R10.814 Left lower quadrant abdominal tenderness; M79.10 Myalgia, unspecified site; R09.89 Other specified symptoms and signs involving the circulatory and respiratory systems; W18.2XXA Fall in (into) shower or empty bathtub, initial encounter; R55 Syncope and collapse; D64.9 Anemia, unspecified; J45.909 Unspecified asthma, uncomplicated; Z98.2 Presence of cerebrospinal fluid drainage device; Z86.69 Personal history of other diseases of the nervous system and sense organs; Z88.1 Allergy status to other antibiotic agents; Z91.018 Allergy to other foods; Z91.010 Allergy to peanuts; Z88.2 Allergy status to sulfonamides
CPT/HCPCS: 93005; 96376; 99285; 96361; 96374; 96375; 36415; 82553; 80307 ×2; 82550; 85025; 80053; 81001; 84484; 73000; 70450; 71260; 72125; 74177; 93010; J2270; J2405; J7030